=== PATIENT | female | born 1965 | race Caucasian/White ===

== ENCOUNTER 2019-01-05 15:07 | Inpatient (IN) | payer BC ==
[2019-01-05] MEDS ORDERED: HEPARIN SODIUM,PORCINE 5,000 UNIT/ML 1 ML VIAL IV PRN (15:17)
--- NOTE | 2019-01-05 15:41 | ED ---
General Adult HPI - General Chief complaint: Chest Pain Stated complaint: chest pain Time Seen by Provider: 01/05/19 15:11 Source: patient, EMS Mode of arrival: EMS Limitations: no limitations - History of Present Illness Initial comments: Dictation was produced using Real Time Translation dictation software. please excuse any grammatical, word or spelling errors. Chief Complaint: 53-year-old female transferred from [facility] emergency department for nonSTEMI. History of Present Illness: Patient is a 53-year-old female. Denies any current medical problems. She was evaluated at [facility] emergency department for chief complaint of chest pain. Patient states that she had chest pain today pressure- like sensation to her substernal area radiating to her jaw and back. She states it was worse with lying flat or sitting up. Patient went to the emergency department for concerns of heart attack. She was evaluated and was found to h ave an elevated troponin. They did not see any signs of ST segment elevation. Patient was started on heparin and given aspirin. Rest of labs are otherwise unremarkable. Patient states after being seen at risk Department [facility] her symptoms improved. Currently she is asymptomatic. The ROS documented in this emergency department record has been reviewed and confirmed by me. Those systems with pertinent positive or negative responses have been documented in the HPI. All other systems are other negative and/or noncontributory. PHYSICAL EXAM: General Impression: Alert and oriented x3, not in acute distress HEENT: Normocephalic atraumatic, extra-ocular movements intact, pupils equal and reactive to light bilaterally, mucous membranes moist. Cardiovascular: Heart regular rate and rhythm, S1&S2 audible, no murmurs, rubs or gallops Chest: Lungs clear to auscultation bilaterally, no rhonchi, no wheeze, no rales Abdomen: Bowel sounds present, abdomen soft, non-tender, non-distended, no organomegaly Musculoskeletal: Pulses present and equal in all extremities, no peripheral edema Motor: no focal deficits noted Neurological: CN II-XII grossly intact, no focal motor or sensory deficits noted Skin: Intact with no visualized rashes Psych: Normal affect and mood ED course: 53-year-old female presents with non-STEMI as upon arrival are within acceptable limits labs and chart were reviewed from [facility] emergency department. EKG was reviewed showing hyperacute T waves however no definitive findings to suggest ST segment elevation with reciprocal changes. Patient evaluated at bedside and found to be well-appearing. She is asymptomatic at this time. Patient continued on heparin. EKG and repeat troponin obtained. EKG is unremarkable. Patient is asymptomatic at this time. Patient be admitted for non-STEMI. EKG interpretation: Ventricular rate 61, normal sinus rhythm, CA interval 150, QRS 74, QTC 426. No CA prolongation, no QTC prolongation, no ST or T-wave change s noted. Overall, this EKG is unremarkable - Related Data Home Medications Medication Instructions Recorded Confirmed No Known Home Medications 01/05/19 01/05/19 Allergies Allergy/AdvReac Type Severity Reaction Status Date / Time Mushroom Allergy Anaphylaxis Verified 01/05/19 15:36 Review of Systems ROS Statement: Those systems with pertinent positive or pertinent negative responses have been documented in the HPI. ROS Other: All systems not noted in ROS Statement are negative. Past Medical History Past Medical History: GERD/Reflux History of Any Multi-Drug Resistant Organisms: None Reported Past Surgical History: Hysterectomy Past Psychological History: No Psychological Hx Reported Smoking Status: Current every day smoker Past Alcohol Use History: Rare Past Drug Use History: None Reported General Exam Limitations: no limitations Course Vital Signs 01/05/19 15:10 Temperature 97.7 F Pulse Rate 50 L Respiratory 16 Rate Blood Pressure 140/81 O2 Sat by Pulse 97 Oximetry Disposition Clinical Impression: NSTEMI (non-ST elevated myocardial infarction) Disposition: ADMITTED IP TO THIS HOSP Condition: Fair Referrals: Geo Albert MD [Primary Care Provider] - 1-2 days Decision Time: 16:33
[2019-01-05] MEDS: HEPARIN SOD,PORK IN 0.45% NACL 25,000 UNIT in 0.45% NACL 1 250ML.BAG IV SCH (15:56)
[2019-01-05] MEDS ORDERED: NITROGLYCERIN SL TABS 0.4 MG TAB SUBLINGUAL PRN ×3 (16:33→19:10)
[2019-01-05] MEDS ORDERED: ATORVASTATIN 80 MG TAB PO STA (17:20)
[2019-01-05] MEDS ORDERED: ACETAMINOPHEN TAB 325 MG TAB PO PRN (17:39)
[2019-01-05] MEDS ORDERED: MORPHINE SULFATE 2 MG/ML SYRINGE IVP PRN (17:39)
--- NOTE | 2019-01-05 17:45 | P.HPIM ---
History of Present Illness H&P Date: 01/05/19 Chief Complaint: Chest pain transferred from [place] The patient is a 53-year-old female with a past medical history of hyperlipidemia, long-standing smoking history who was transferred here from [place], after she presented there earlier today complaining of chest pain. Apparently the patient woke up with severe chest pressure rated at 8 out of 10 with radiation up into her neck described the discomfort as squeezing, with associated shortness of breath, diaphoresis and nausea that began at rest and woke her up from sleep. The patient denied any vomiting , abdominal pain, lightheadedness dizziness , palpitations, focal weakness slurred speech or facial droop. The patient reported getting aspirin, and Pepcid at [place] which apparently resolved her pain. Review of records indicates the patient received heparin and aspirin prior to transfer here after it was noted that her troponin was trending up to 0.82, EKG done at that time showed sinus mechanism without any suggestion of acute ischemia. The patient continued to be normotensive but was noted to be bradycardic with heart rate in the low 50s, repeat troponin here was elevated at 2.25. Review of Systems Pertinent positives per HPI all other review of systems otherwise negative Past Medical History Past Medical History: GERD/Reflux History of Any Multi-Drug Resistant Organisms: None Reported Past Surgical History: Hysterectomy Past Psychological History: No Psychological Hx Reported Smoking Status: Current every day smoker Past Alcohol Use History: Rare Past Drug Use History: None Reported Medications and Allergies Home Medications Medication Instructions Recorded Confirmed Type No Known Home Medications 01/05/19 01/05/19 History Allergies Allergy/AdvReac Type Severity Reaction Status Date / Time Mushroom Allergy Anaphylaxis Verified 01/05/19 15:36 Physical Exam Vitals: Vital Signs Temp Pulse Resp BP Pulse Ox 01/05/19 15:10 97.7 F 50 L 16 140/81 97 Intake and Output 01/05/19 01/05/19 01/05/19 06:59 14:59 22:59 Other: Weight 79.379 kg Constitutional: No acute distress, conversant, pleasant Eyes: Anicteric sclerae, moist conjunctiva, no lid-lag, PERRLA ENMT: NC/AT,Oropharynx clear, no erythema, exudates Neck:Supple, FROM, no masses, or JVD, No carotid bruits; No thyromegaly Lungs: Clear to auscultation, Clear to percussion, Normal respiratory effort, no accessory muscle use Cardiovascular: Heart regular in rate and rhythm, No murmurs, gallops, or rubs no peripheral edema Abdominal: Soft Nontender, nom distended, no guarding, no rebound or rigidity, Normoactive bowel sounds No hepatomegaly, No splenomegaly, No palpable mass No abdominal wall hernia noted Skin: Normal temperature, tone, texture, turgor, No induration No subcutaneous nodules, No rash, lesions, No ulcers Extremities:No digital cyanosis No clubbing, Pedal pulses intact and symmetrical Radial pulses intact and symmetrical Normal gait and station, No calf tenderness Psychiatric: Alert and oriented to person, place and time, Appropriate affect Intact judgement Neuro: Muscles Strength 5/5 in all 4 extremities, Sensation to light touch grossly present throughout, Cranial nerves II-XII grossly intact. No focal sensory deficits Results Labs: Abnormal Lab Results - Last 24 Hours (Table) 01/05/19 Range/Units 15:55 Troponin I 2.250 H* (0.000-0.034) ng/mL Assessment and Plan (1) NSTEMI (non-ST elevated myocardial infarction) Current Visit: Yes Status: Acute Code(s): I21.4 - NON-ST ELEVATION (NSTEMI) MYOCARDIAL INFARCTION SNOMED Code(s): 28375083 (2) Hyperlipidemia Current Visit: Yes Status: Acute Code(s): E78.5 - HYPERLIPIDEMIA, UNSPECIFIED SNOMED Code(s): 43225979 (3) Bradycardia Current Visit: Yes Status: Acute Code(s): R00.1 - BRADYCARDIA, UNSPECIFIED SNOMED Code(s): 47198891 (4) Smoking greater than 30 pack years Current Visit: Yes Status: Acute Code(s): F17.210 - NICOTINE DEPENDENCE, CIGARETTES, UNCOMPLICATED SNOMED Code(s): 17791094 (5) GERD (gastroesophageal reflux disease) Current Visit: Yes Status: Acute Code(s): K21.9 - GASTRO-ESOPHAGEAL REFLUX DISEASE WITHOUT ESOPHAGITIS SNOMED Code(s): 118188894 Plan: The patient is admitted to the cardiac telemetry unit with a presumed AMI, non- STEMI and started on routine AMI orders, we will continue to antiplatelet therapy with aspirin daily, continue anticoagulation with heparin, continue statin therapy. 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 The patient is noted to be bradycardic at this time we'll hold off on any beta blockers unless directed by cardiology. We'll continue monitor her clinical course closely. She started on nicotine transdermal patch for ongoing tobaccoism. She is also continued on PPI therapy for GERD. We'll continue to follow her clinical course CODE STATUS: Full code Discussed plan of care with: Patient and her son Anticipated discharge: 2-3 days Time with Patient: Greater than 30
[2019-01-05] MEDS ORDERED: SODIUM CHLORIDE 0.9% 1,000 ML IV ONE (18:08)
[2019-01-05] MEDS ORDERED: fentaNYL (PF) 50 MCG/ML 2 ML AMP ONE (18:14)
[2019-01-05] MEDS ORDERED: fentaNYL (PF) 50 MCG/ML 2 ML AMP IVP ONE (18:15)
[2019-01-05] MEDS ORDERED: MIDAZOLAM 2 MG/2 ML VIAL IVP ONE (18:16)
[2019-01-05] MEDS ORDERED: LIDOCAINE 2% INJ 20 MG/ML SQ ONE (18:16)
[2019-01-05] MEDS: NITROGLYCERIN 1000MCG/10ML SYRINGE INTRACORON ONE ×2 (18:28→19:01)
[2019-01-05] MEDS ORDERED: TICAGRELOR 90 MG TAB ONE (18:31)
[2019-01-05] MEDS ORDERED: TICAGRELOR 90 MG TAB PO ONE (18:33)
[2019-01-05] MEDS ORDERED: BIVALIRUDIN BOLUS 250 MG/50 ML IV ONE (18:39)
[2019-01-05] MEDS ORDERED: BIVALIRUDIN 250 MG in SODIUM CHLORIDE 0.9% 50 ML IV ONE (18:40)
--- NOTE | 2019-01-05 18:41 | CONS ---
CONSULTATION Mrs Fierro is a 53-year-old female who was transferred from the [facility]. This patient woke up this morning with a complaint of chest discomfort. The pain was in the center of the chest was going up to the throat. She did not had any nausea or vomiting. The pain persisted so she came to the emergency room at the [facility]. The EKG showed the slightly prominent T-wave and initial troponin was elevated and the patient was subsequently transferred over here. The pain was not associated with any significant shortness of breath, nausea, vomiting, or diaphoresis. The patient had a similar kind of pain about a year ago and she was told that it was probably hiatal hernia. ALLERGIES: None known. PAST SURGICAL HISTORY: Surgical history includes hysterectomy. FAMILY HISTORY: The patient's mother has a high blood pressure and mini-stroke. SOCIAL HISTORY: Patient has smoked about 2 packs per day. PHYSICAL EXAMINATION: At present reveals a 53-year-old female who does not appear to be in any acute distress. The patient is presently is pain free. The patient's blood pressure is 130/80 mmHg, heart rate is 60 beats per minute. Head/ENT examination is negative. Neck is supple. There is no increase in jugular venous pressure. Both the carotid pulses are felt. There is no bruit. Chest is symmetrical. Heart the PMI is not felt. First and second heart sounds are normal. There is no evidence of any murmur. Lungs are clinically clear to auscultation and percussion. Abdomen is soft. Liver and spleen are not enlarged. Bowel sounds are heard. Extremities: Peripheral pulses are 2+. Initial EKG showed slightly prominent T-wave in lead V5 and V6. Repeat EKG done at [facility] showed some T-wave inversions in lead 3. The patient's hemoglobin is 15 g, BUN is 28, creatinine 0.6, bilirubin was 0.3. Initial troponin was less than 0.05. The 2nd troponin was 0.8. Repeat troponin at [facility] is 2.25. FINAL IMPRESSION: This patient had a prolonged episode of chest discomfort. The patient has mild T-wave inversions in the inferior leads. Troponin is elevated up to 2.25, suggestive of non-Q- wave myocardial infarction. In view of the high risk of non-Q-wave myocardial infarction, patient is advised urgent cardiac catheterization for definitive diagnosis and further management. MMODL / IJN: [id number] /
--- NOTE | 2019-01-05 18:56 | CC ---
CARDIAC CATHETERIZATION REPORT Mrs Fierro is a 53-year-old female who was a transfer from [facility] with a history suggestive of non ST-segment elevation myocardial infarction. Patient's troponin was 2.25. EKG showed minimal T-wave inversions in the lead 3. In view of that, the patient was recommended to have urgent cardiac catheterization. DETAILS OF THE PROCEDURE: The right groin was prepped and draped in the usual manner and the skin was infiltrated with 2% Xylocaine. The right femoral artery was entered using Seldinger technique and micropuncture needle and a #6-[place] sheath was placed in. Selective coronary angiography was then performed in multiple projections and left ventricular pressures were obtained. The patient tolerated the procedure well. Moderate sedation was used. Total sedation time was 18 minutes. HEMODYNAMICS: Left ventricular end-diastolic pressure is 6-8 mmHg prior to angiography. No gradient is noted across the aortic valve. SELECTIVE CORONARY ANGIOGRAPHY: Left main coronary artery is normal and patent. LAD is a good caliber blood vessel and gives rise to good size diagonal branch. LAD and its branches are normal. Circumflex coronary artery is a good caliber blood vessel and gives rise to a high obtuse marginal branch. Circumflex coronary artery and its branches are normal. Right coronary artery is a large caliber blood vessel and proximally has an eccentric 80% to 85% stenosis. It subsequently gives rise to good-sized PDA and PLV branch. FINAL IMPRESSION: This study shows 80% to 85% stenosis. which is eccentric stenosis and hazy looking lesion in the proximal right coronary artery. LAD and circumflex coronary arteries are normal. RECOMMENDATIONS: We will review the film with Dr. Bolivar and consider stent to the RCA. MMODL / IJN: [id number] /
[2019-01-05] MEDS ORDERED: IOPAMIDOL-370 100ML BTL INJ ONE (19:06)
[2019-01-05] MEDS ORDERED: ZOLPIDEM 5 MG TAB PO PRN (19:10)
[2019-01-05] MEDS ORDERED: MAG HYDROX/AL HYDROX/SIMETH 30 ML CUP PO PRN (19:10)
[2019-01-05] MEDS ORDERED: ATROPINE SULFATE 0.1 MG/ML 10ML SYRINGE IV PRN (19:10)
[2019-01-05] MEDS ORDERED: RX INFO: IV CONTRAST WAS GIVEN 1 EACH MISC MISCELLANE PRN (19:10)
[2019-01-05] MEDS ORDERED: SODIUM CHLORIDE 0.9% 1,000 ML IV SCH (19:15)
--- NOTE | 2019-01-05 19:26 | PTCA ---
PERCUTANEOUSTRANS CORORONARY ANGIOGRAPHY DATE OF SERVICE: January 05, 2019 PERFORMING PHYSICIAN: Vin Bolivar MD, retail management keyholder. PROCEDURE PERFORMED: Successful stenting of the proximal right coronary artery using 4.0 x 18 mm Xience BREE with an excellent angiographic results and reduction of stenosis from 80% to 0%. INDICATION: This is a 53-year-old female patient who was admitted to the hospital with chest discomfort and ruled in for acute non ST elevation myocardial infarction. She was seen by Dr. Henriquez who did perform a heart catheterization on the patient and that revealed critical disease involving the right coronary artery. The disease was in the proximal portion. Because of that, stenting of the RCA was advised. APPROACH: Right common femoral artery. COMPLICATION: None. LEVEL OF SEDATION: Moderate with sedation length of the 10 minutes. PROCEDURE DESCRIPTION: Please refer to the diagnostic heart catheterization was performed by Dr. Henriquez. Anticoagulation was initiated using Angiomax. Subsequently I did engage the right coronary artery using JR 3.5 short tip. I wired the RCA using a run-through wire. I did direct stenting on the lesion using 4.0 x 18 mm Xience drug-eluting stent where the stent was positioned under fluoroscopy guidance and deployed under 18 atmospheres for 20 seconds. The following angiogram showed excellent angiographic results and the procedure was completed without any complication. POSTPROCEDURE MANAGEMENT: 1. Dual anti-platelet therapy. 2. Risk factors modifications. 3. Follow up with the patient. GUS / GABRIEL: [id number] /
[2019-01-05] MEDS: METOPROLOL TARTRATE 25 MG TAB PO SCH (20:47)
[2019-01-05] MEDS: NICOTINE 21MG/24HR PATCH TRANSDERM SCH (20:50)
[2019-01-06 04:36] LABS: Cholesterol 223 mg/dL (<200); HDL Cholesterol 59 mg/dL (40-60); LDL Cholesterol,Calculated 144 mg/dL (0-99); Triglycerides 102 mg/dL (<150)
[2019-01-06] MEDS: METOPROLOL TARTRATE 25 MG TAB PO SCH ×2 (08:38→20:29)
[2019-01-06] MEDS: ASPIRIN 81 MG PO SCH (08:38)
[2019-01-06] MEDS: NICOTINE 21MG/24HR PATCH TRANSDERM SCH (08:39)
[2019-01-06] MEDS: TICAGRELOR 90 MG TAB PO SCH ×2 (08:39→20:29)
[2019-01-06] MEDS ORDERED: ASPIRIN 325 MG TAB PO SCH (09:00)
--- NOTE | 2019-01-06 09:38 | PN ---
PROGRESS NOTE Von is a 53-year-old lady who was admitted to the hospital with acute chest pain and had a non ST-segment elevation NM. She underwent emergent cardiac catheterization by my associate, Dr. Henriquez that found a tight lesion in the right coronary artery for which she underwent angioplasty with stent placement. This morning patient is doing well and is free of symptoms. Denies chest pain, difficulty in breathing or palpitations. Her peak troponin was 2.2. It is already coming down at 1.2 this morning. Her LDL cholesterol was 144. The patient is a smoker and had been advised to quit smoking. Prior to coming in, she was not on any medications. On exam this morning, she is comfortable at rest. Vital signs are stable. There is no jugular venous distention. Chest exam reveals good air entry bilaterally. Heart exam reveals first and second heart sounds. No gallop. No murmur. Abdomen is soft, nontender. Examination of extremities did not reveal any edema. Groin is free of bleeding, bruit, hematoma. Foot pulses are intact. ASSESSMENT: Acute fca-RG-[id number] elevation myocardial infarction, status post catheterization and angioplasty of right coronary artery. PLAN: Patient is doing well. Will ambulate her. Obtain a 2D echo on her to document her LV function. We will discharge her home tomorrow morning. MMODL / IJN: [id number] /
--- NOTE | 2019-01-06 10:01 | P.PN ---
Subjective Progress Note Date: 01/06/19 Patient seen and examined at bedside doing well today, has no complaints reports that her chest pain is resolved. The patient was taken to the medical lab specialist and had stenting of the proximal RCA secondary to her non-STEMI. The patient has dyslipidemia which is uncontrolled LDL not at goal 144 Objective - Vital Signs Vital signs: Vital Signs Temp 97.1 F L 01/06/19 08:00 Pulse 61 01/06/19 08:00 Resp 18 01/06/19 08:00 BP 102/65 01/06/19 08:00 Pulse Ox 96 01/06/19 08:00 Intake & Output 01/05/19 01/06/19 01/06/19 18:59 06:59 18:59 Intake Total 674 8 Output Total 1100 Balance 674 -1092 Weight 79.379 kg 79 kg Intake: IV 674 Intake, IV Titration 8 Amount Sodium Chloride 0.9% 1, 8 000 ml @ 75 mls/hr IV . [id number] ANIYAH Rx#:[id number] Output: Urine 1100 Other: Voiding Method Toilet Toilet # Voids 1 - Exam Constitutional: No acute distress, conversant, pleasant Eyes: Anicteric sclerae, moist conjunctiva, no lid-lag, PERRLA ENMT: NC/AT,Oropharynx clear, no erythema, exudates Neck:Supple, FROM, no masses, or JVD, No carotid bruits; No thyromegaly Lungs: Clear to auscultation, Clear to percussion, Normal respiratory effort, no accessory muscle use Cardiovascular: Heart regular in rate and rhythm, No murmurs, gallops, or rubs no peripheral edema Abdominal: Soft Nontender, nom distended, no guarding, no rebound or rigidity, Normoactive bowel sounds No hepatomegaly, No splenomegaly, No palpable mass No abdominal wall hernia noted Skin: Normal temperature, tone, texture, turgor, No induration No subcutaneous nodules, No rash, lesions, No ulcers Extremities:No digital cyanosis No clubbing, Pedal pulses intact and symmetrical Radial pulses intact and symmetrical Normal gait and station, No calf tenderness Psychiatric: Alert and oriented to person, place and time, Appropriate affect Intact judgement Neuro: Muscles Strength 5/5 in all 4 extremities, Sensation to light touch grossly present throughout, Cranial nerves II-XII grossly intact. No focal sensory deficits - Labs CBC & Chem 7: 01/06/19 04:02 Labs: Abnormal Lab Results - Last 24 Hours (Table) 01/05/19 01/05/19 01/06/19 Range/Units 15:55 21:27 04:02 Troponin I 2.250 H* 2.200 H* 1.120 H* (0.000-0.034) ng/mL Cholesterol (<200) mg/dL LDL Cholesterol, Calc (0-99) mg/dL 01/06/19 Range/Units 04:02 Troponin I (0.000-0.034) ng/mL Cholesterol 223 H (<200) mg/dL LDL Cholesterol, Calc 144 H (0-99) mg/dL Assessment and Plan (1) NSTEMI (non-ST elevated myocardial infarction) Narrative/Plan: * Status post heart catheterization and PCI secondary to non-Q-wave VT * Had stenting done to the proximal RCA * Echocardiogram pending * Continue dual antiplatelet therapy with Plavix and aspirin, continue statin therapy with Lipitor LDL not controlled, initiated on beta blockers Current Visit: Yes Status: Acute Code(s): I21.4 - NON-ST ELEVATION (NSTEMI) MYOCARDIAL INFARCTION SNOMED Code(s): 41031744 (2) Coronary artery disease Narrative/Plan: * Continue treatment above Current Visit: Yes Status: Acute Code(s): I25.10 - ATHSCL HEART DISEASE OF [place] CORONARY ARTERY W/O ANG PCTRS SNOMED Code(s): 66194440 (3) Smoking greater than 30 pack years Narrative/Plan: * Patient counseled on smoking cessation * Continue nicotine transdermal patch Current Visit: Yes Status: Acute Code(s): F17.210 - NICOTINE DEPENDENCE, CIGARETTES, UNCOMPLICATED SNOMED Code(s): 11401653 (4) Hyperlipidemia Narrative/Plan: * LDL not at goal continue Lipitor therapy Current Visit: Yes Status: Acute Code(s): E78.5 - HYPERLIPIDEMIA, UNSPECIFIED SNOMED Code(s): 19303627 (5) GERD (gastroesophageal reflux disease) Narrative/Plan: * Continue PPI therapy Current Visit: Yes Status: Acute Code(s): K21.9 - GASTRO-ESOPHAGEAL REFLUX DISEASE WITHOUT ESOPHAGITIS SNOMED Code(s): 254707608 (6) Bradycardia Current Visit: Yes Status: Resolved Code(s): R00.1 - BRADYCARDIA, UNSPECIFIED SNOMED Code(s): 99840300 Plan: Patient doing well post-heart catheterization and stenting * Anticipated discharge tomorrow
[2019-01-06] MEDS: HEPARIN SOD,PORK IN 0.45% NACL 25,000 UNIT in 0.45% NACL 1 250ML.BAG IV SCH (11:58)
--- NOTE | 2019-01-06 13:16 | ECHOF ---
Referral Reason:hi MEASUREMENTS -------- HEIGHT: 167.6 cm WEIGHT: 78.9 kg BP: 117/73 RVIDd: 2.3 cm (< 3.3) IVSd: 1.3 cm (0.6 - 1.1) LVIDd: 4.7 cm (3.9 - 5.3) LVPWd: 1.2 cm (0.6 - 1.1) IVSs: 1.7 cm LVIDs: 2.8 cm LVPWs: 1.8 cm LAESV Index (A-L): 19.18 ml/m Ao Diam: 2.7 cm (2.0 - 3.7) AV Cusp: 1.9 cm (1.5 - 2.6) LA Diam: 3.5 cm (2.7 - 3.8) MV EXCURSION: 12.148 mm (> 18.000) MV EF SLOPE: 61 mm/s (70 - 150) EPSS: 0.3 cm MV E Earle: 1.02 m/s MV DecT: 246 ms MV A Earle: 0.83 m/s MV E/A Ratio: 1.23 RAP: 5.00 mmHg RVSP: 8.43 mmHg FINDINGS -------- Sinus rhythm. This was a technically good study. The left ventricular size is normal. There is mild concentric left ventricular hypertrophy. Overa ll left ventricular systolic function is normal with, an EF between 55 - 60 %. The right ventricle is normal in size. Normal LA size by volume 22+/-6 ml/m2. The right atrial size is normal. The aortic valve is trileaflet and appears structurally normal. The mitral valve leaflets are mildly thickened. Mild mitral annular calcification present. Mild m itral regurgitation is present. Trace tricuspid regurgitation present. The right ventricular systolic pressure, as measured by Dopp ler, is 8.43mmHg. There is no pulmonic regurgitation present. The aortic root size is normal. Normal inferior vena cava with normal inspiratory collapse consistent with estimated right atrial pre ssure of 5 mmHg. There is no pericardial effusion. CONCLUSIONS -------- 1. Sinus rhythm. 2. This was a technically good study. 3. The left ventricular size is normal. 4. There is mild concentric left ventricular hypertrophy. 5. Overall left ventricular systolic function is normal with, an EF between 55 - 60 %. 6. The right ventricle is normal in size. 7. Normal LA size by volume 22+/-6 ml/m2. 8. The right atrial size is normal. 9. The aortic valve is trileaflet and appears structurally normal. 10. The mitral valve leaflets are mildly thickened. 11. Mild mitral annular calcification present. 12. Mild mitral regurgitation is present. 13. Trace tricuspid regurgitation present. 14. The right ventricular systolic pressure, as measured by Doppler, is 8.43mmHg. 15. There is no pulmonic regurgitation present. 16. The aortic root size is normal. 17. Normal inferior vena cava with normal inspiratory collapse consistent with estimated right atrial pressure of 5 mmHg. 18. There is no pericardial effusion. CERTIFIED PHLEBOTOMY TECHNICIAN: Nohemi Fisher RDCS
[2019-01-06 15:27] VITALS: BMI 28.0
[2019-01-06] MEDS ORDERED: ATORVASTATIN 80 MG TAB PO SCH (21:00)
[2019-01-07 08:01] VITALS: RESP 20
[2019-01-07 08:06] LABS: HCT 45.5 % (34.0-46.0); HGB 14.8 gm/dL (11.4-16.0); MCHC 32.6 g/dL (31.0-37.0); MCV 92.1 fL (80.0-100.0); Mean Platelet Volume 5.9; Platelet Count 316 k/uL (150-450); RBC 4.94 m/uL (3.80-5.40); WBC 8.1 k/uL (3.8-10.6)
[2019-01-07] MEDS: ASPIRIN 81 MG PO SCH (08:09)
[2019-01-07] MEDS: TICAGRELOR 90 MG TAB PO SCH (08:09)
[2019-01-07] MEDS: NICOTINE 21MG/24HR PATCH TRANSDERM SCH (08:09)
[2019-01-07 08:16] LABS: Anion Gap 6 mmol/L; Blood Urea Nitrogen 12 mg/dL (7-17); Calcium 9.5 mg/dL (8.4-10.2); Carbon Dioxide 27 mmol/L (22-30); Chloride 110 mmol/L (98-107); Glucose 94 mg/dL (74-99); Potassium 4.2 mmol/L (3.5-5.1); Sodium 143 mmol/L (137-145)
[2019-01-07] MEDS ORDERED: VARENICLINE 0.5 MG TAB PO SCH (09:45)
[2019-01-07 11:24] VITALS: BP 105/63; PULSE 50; TEMP 97.1
--- NOTE | 2019-01-07 12:55 | P.DS ---
Providers Date of admission: 01/05/19 16:33 Expected date of discharge: 01/07/19 Attending physician: Papi Hendrickson MD Consults: 01/05/19 16:33 Consult Physician Urgent Consulting Provider: Alirio Henriquez Consult Reason/Comments: nstemi Do you want consulting provider notified?: Yes 01/05/19 19:11 Consult Physician Routine Consulting Provider: [facility] Consult Reason/Comments: Post Interventional patient Do you want consulting provider notified?: Already Contacted Primary care physician: Geo Albert - Discharge Diagnosis(es) (1) NSTEMI (non-ST elevated myocardial infarction) Current Visit: Yes Status: Acute (2) Coronary artery disease Current Visit: Yes Status: Acute (3) Smoking greater than 30 pack years Current Visit: Yes Status: Acute (4) Hyperlipidemia Current Visit: Yes Status: Acute (5) GERD (gastroesophageal reflux disease) Current Visit: Yes Status: Acute (6) Bradycardia Current Visit: Yes Status: Resolved Hospital Course: The patient is a 53-year-old female that presented with chest pain was admitted for a non-ST elevation non-Q-wave HI after being transferred here from [place], she was started on routine AMI orders with aspirin and placed on heparin drip, review of the EKG showed mild T-wave inversions in the inferior leads, her troponin was up to 2.25. Cardiology was consulted and the patient was brought to the lift slab operator where the patient was noted to have 80-85% stenosis of the proximal RCA with subsequent stenting.she was continued on dual antiplatelet therapy along with statins. The patient's blood pressure remained stable, 2-D echocardiogram post cath showed a preserved LVEF of 55-60%, with mild concentric left ventricular hypertrophy. She was discharged home in stable condition and instructed to follow-up with her PCP and cardiology. This discharge process took approximately 35 minutes Focus exam CV: Regular rate and rhythm, no murmurs rubs or gallops Patient Condition at Discharge: Good Plan - Discharge Summary Discharge Rx Participant: No New Discharge Prescriptions: New Aspirin 81 mg PO DAILY #30 chew Ticagrelor [Brilinta] 90 mg PO BID #60 tab Varenicline [Chantix Starter Pack] 0.5 mg PO DAILY 30 Days #60 tab Atorvastatin [Lipitor] 80 mg PO HS #30 tab Metoprolol Tartrate [Lopressor] 12.5 mg PO BID #30 tab Nitroglycerin Sl Tabs [Nitrostat] 0.4 mg SUBLINGUAL Q5M PRN #25 tab PRN Reason: Chest Pain Discharge Medication List Aspirin 81 mg PO DAILY #30 chew 01/07/19 [Rx] Atorvastatin [Lipitor] 80 mg PO HS #30 tab 01/07/19 [Rx] Metoprolol Tartrate [Lopressor] 12.5 mg PO BID #30 tab 01/07/19 [Rx] Nitroglycerin Sl Tabs [Nitrostat] 0.4 mg SUBLINGUAL Q5M PRN #25 tab 01/07/19 [Rx] Ticagrelor [Brilinta] 90 mg PO BID #60 tab 01/07/19 [Rx] Varenicline [Chantix Starter Pack] 0.5 mg PO DAILY 30 Days #60 tab 01/07/19 [Rx] Follow up Appointment(s)/Referral(s): Geo Albert MD [Primary Care Provider] - 01/12/19 10:20 am (Saturday ) Alirio Henriquez MD [STAFF PHYSICIAN] - 01/15/19 3:45 pm () Patient Instructions/Handouts: Heart Healthy Diet (DC), Safe Use of Antiplatelet Medication (DC), Coronary Intravascular Stent Placement (DC) Activity/Diet/Wound Care/Special Instructions: pt has a coupon for $5/mo Brillinta Discharge Disposition: HOME SELF-CARE
--- NOTE | 2019-01-07 13:20 | P.PN ---
Subjective Progress Note Date: 01/07/19 This is a 53-year-old female who was transferred here for [facility] with a non-ST elevation myocardial infarction. She was taken to the cardiac catheterization lab where she underwent successful stenting of the proximal right coronary artery. Patient was seen and examined this morning, she denied any chest pain or difficulty in breathing. She has been up ambulating in the hallway without any difficulty. Echocardiogram with Doppler study was performed which revealed an ejection fraction of 55-60%. Her blood pressure has been running on the low side with a heart rate around 50, we will decrease her dose of beta steph to 12-1/2 mg by mouth twice a day today. Objective - Vital Signs Vital signs: Vital Signs Temp 97.1 F L 01/07/19 11:23 Pulse 50 L 01/07/19 11:23 Resp 20 01/07/19 11:23 BP 105/63 01/07/19 11:23 Pulse Ox 97 01/07/19 11:23 Intake & Output 01/06/19 01/07/19 01/07/19 18:59 06:59 18:59 Intake Total 960 480 Balance 960 480 Weight 79 kg 77.7 kg Intake: Oral 960 480 Other: Voiding Method Toilet Toilet # Voids 2 2 3 # Bowel Movements 1 - Exam PHYSICAL EXAMINATION: GENERAL: 53-year-old female in no acute distress at the time of my examination HEENT: Head is atraumatic, normocephalic. Pupils equal, round. Sclera anicteric. Conjunctiva are clear. Mucous membranes of the mouth are moist. Neck is supple. There is no elevated jugular venous pressure. No carotid bruit is heard. HEART EXAMINATION: Heart S1, S2 normal. No murmur or gallop heard. CHEST EXAMINATION: On's reveal some fine scattered wheezing throughout ABDOMEN: Soft, nontender. Bowel sounds are heard. No organomegaly noted. EXTREMITIES: 2+ peripheral pulses with no evidence of peripheral edema and no calf tenderness noted. Right groin is soft, no evidence of any hematoma. NEUROLOGIC patient is awake, alert and oriented 3 . . - Labs CBC & Chem 7: 01/07/19 07:40 01/07/19 07:40 Labs: Abnormal Lab Results - Last 24 Hours (Table) 01/07/19 Range/Units 07:40 Chloride 110 H (98-107) mmol/L Assessment and Plan Plan: Assessment and plan #1 non-ST elevation myocardial infarction, status post angioplasty and stenting of the RCA #2 nicotine dependence, patient's smokes 2 packages of cigarettes per day #3 hyperlipidemia Plan Patient may be able to be discharged home today. She will be discharged home on aspirin 81 mg daily, Brilinta 90 mg twice a day, Lopressor 12-1/2 mg one tablet by mouth twice a day, Lipitor 80 mg daily, Chantix, and sublingual nitroglycerin as needed for chest pain. DNP note has been reviewed, I agree with a documented findings and plan of care. Patient was seen and examined.
[2019-01-07] MEDS ORDERED: METOPROLOL TARTRATE 12.5 MG TAB PO SCH (21:00)
== END 2019-01-07 13:30 | disposition home or self-care (01) | DRG 247 ==
LOC: SUPCPDRO 15:07 → EC 15:07 → 3SCARD 16:33
PROVIDERS: ADMIT Family Medicine; ATTEND Family Medicine
PROC: B2111ZZ Fluoroscopy of Multiple Coronary Arteries using Low Osmolar Contrast (ICD-10-PCS; 2019-01-05)
PROC: B2151ZZ Fluoroscopy of Left Heart using Low Osmolar Contrast (ICD-10-PCS; 2019-01-05)
PROC: 027034Z Dilation of Coronary Artery, One Artery with Drug-eluting Intraluminal Device, Percutaneous Approach (ICD-10-PCS; principal; 2019-01-05 17:58)
PROC: 4A023N7 Measurement of Cardiac Sampling and Pressure, Left Heart, Percutaneous Approach (ICD-10-PCS; 2019-01-05 17:58)
DX: I21.4 Non-ST elevation (NSTEMI) myocardial infarction (principal); I25.10 Atherosclerotic heart disease of native coronary artery without angina pectoris; K21.9 Gastro-esophageal reflux disease without esophagitis; F17.210 Nicotine dependence, cigarettes, uncomplicated; E78.5 Hyperlipidemia, unspecified; R00.1 Bradycardia, unspecified; I51.7 Cardiomegaly; Z71.6 Tobacco abuse counseling; Z90.710 Acquired absence of both cervix and uterus; Z91.018 Allergy to other foods; Z82.3 Family history of stroke; Z82.49 Family history of ischemic heart disease and other diseases of the circulatory system
CPT/HCPCS: 36415; 80048; 80061; 82565; 84484; 85027; 93005; 93306; 93458; 96365; 96366; 99285; C1874

== ENCOUNTER 2019-01-10 18:19 | Inpatient (IN) | payer BC ==
[2019-01-10] MEDS ORDERED: MAG HYDROX/AL HYDROX/SIMETH 30 ML, HYOSCYAMINE ELIXIR 10 ML, CIMETIDINE HCL 300 MG PO STA ×3 (18:48)
[2019-01-10 18:55] LABS: Basophils # (A) 0.1 k/uL (0-0.2); Basophils % (A) 1 %; Eosinophils # (A) 0.4 k/uL (0-0.7); Eosinophils % (A) 4 %; HCT 43.6 % (34.0-46.0); HGB 14.3 gm/dL (11.4-16.0); Lymphocytes # (A) 2.1 k/uL (1.0-4.8); Lymphocytes % (A) 22 %; MCH 29.8 pg (25.0-35.0); MCHC 32.7 g/dL (31.0-37.0); MCV 91.2 fL (80.0-100.0); Mean Platelet Volume 6.3; Monocytes # (A) 0.5 k/uL (0-1.0); Monocytes % (A) 5 %; Neutrophils # (A) 6.3 k/uL (1.3-7.7); Neutrophils % (A) 65 %; Platelet Count 328 k/uL (150-450); RBC 4.79 m/uL (3.80-5.40); RDW 12.9 % (11.5-15.5); WBC 9.6 k/uL (3.8-10.6)
[2019-01-10 19:07] LABS: ALT 24 U/L (9-52); AST 17 U/L (14-36); Albumin 3.8 g/dL (3.5-5.0); Alkaline Phosphatase 66 U/L (38-126); Anion Gap 8 mmol/L; Blood Urea Nitrogen 11 mg/dL (7-17); Calcium 9.3 mg/dL (8.4-10.2); Carbon Dioxide 23 mmol/L (22-30); Chloride 110 mmol/L (98-107); Glucose 105 mg/dL (74-99); Magnesium 2.1 mg/dL (1.6-2.3); Sodium 141 mmol/L (137-145); Total Bilirubin 0.3 mg/dL (0.2-1.3); Total Protein 6.3 g/dL (6.3-8.2)
[2019-01-10 19:12] LABS: INR 0.9 (<1.2); Partial Thromboplastin Time 24.7 sec (22.0-30.0)
--- NOTE | 2019-01-10 19:21 | XR ---
EXAMINATION TYPE: XR chest 2V DATE OF EXAM: 01/10/2019 COMPARISON: Outside exam 01/05/2019 HISTORY: 53-year-old female with chest pain TECHNIQUE: PA and lateral views FINDINGS: The cardiomediastinal silhouette, aorta, and pulmonary vasculature are within normal limits. Lungs an d pleural spaces are clear. IMPRESSION: No acute cardiopulmonary process.
[2019-01-10] MEDS ORDERED: HEPARIN SODIUM,PORCINE 5,000 UNIT/ML 1 ML VIAL IV ONE (19:34)
[2019-01-10] MEDS ORDERED: HEPARIN SODIUM,PORCINE 5,000 UNIT/ML 1 ML VIAL IV PRN (19:34)
[2019-01-10] MEDS ORDERED: FAMOTIDINE 20 MG/2 ML VIAL IV STA (19:36)
[2019-01-10] MEDS ORDERED: HEPARIN SOD,PORK IN 0.45% NACL 25,000 UNIT in 0.45% NACL 1 250ML.BAG IV SCH (19:45)
--- NOTE | 2019-01-10 20:12 | ED ---
Chest Pain HPI - General Chief Complaint: Chest Pain Stated Complaint: chest pain Time Seen by Provider: 01/10/19 18:31 Source: patient, EMS Mode of arrival: EMS Limitations: no limitations - History of Present Illness Initial Comments: 53-year-old female presenting with chest burning that began a few days prior. She states she recently had an NSTEMI with a stent placement on January 05. He states she's been taking Brilinta, which is been causing her to have some acid reflux symptoms. Today she states she had burning in her chest that is constant, has not been alleviated by anything, was not accompanied with any other anginal equivalents. She denies shortness of breath. She tried her home Zantac and Nitro without relief. Patient denies similar symptoms in the past. - Related Data Home Medications Medication Instructions Recorded Confirmed Ranitidine HCl [Zantac] 75 mg PO DAILY 01/10/19 01/10/19 Previous Rx's Medication Instructions Recorded Aspirin 81 mg PO DAILY #30 chew 01/07/19 Atorvastatin [Lipitor] 80 mg PO HS #30 tab 01/07/19 Metoprolol Tartrate [Lopressor] 12.5 mg PO BID #30 tab 01/07/19 Nitroglycerin Sl Tabs [Nitrostat] 0.4 mg SUBLINGUAL Q5M PRN #25 tab 01/07/19 Ticagrelor [Brilinta] 90 mg PO BID #60 tab 01/07/19 Varenicline [Chantix Starter Pack] 0.5 mg PO DAILY 30 Days #60 tab 01/07/19 Allergies Allergy/AdvReac Type Severity Reaction Status Date / Time Mushroom Allergy Anaphylaxis Verified 01/10/19 18:58 Review of Systems ROS Statement: Those systems with pertinent positive or pertinent negative responses have been documented in the HPI. Review of Systems Constitutional: Denies fever, chills Eyes: Denies change in vision, Denies pain Ears, nose, mouth, throat: Denies headaches, Denies sore throat Cardiovascular: Positive chest pain. Denies palpitations Respiratory: Denies shortness of breath, Denies cough Gastrointestinal: Denies abdominal pain. Denies nausea, vomiting, diarrhea. Genitourinary: Denies hematuria, Denies infections Musculoskeletal: Denies pain, Denies swelling Integumentary: Denies rash Neurological: Denies headache, focal weakness, focal numbness Psychiatric: Denies anxiety, Denies depression Hematologic/Lymphatic: Denies easy bleeding or bruising ROS Other: All systems not noted in ROS Statement are negative. Past Medical History Past Medical History: Chest Pain / Angina, GERD/Reflux History of Any Multi-Drug Resistant Organisms: None Reported Past Surgical History: Hysterectomy Additional Past Surgical History / Comment(s): stent placement Past Anesthesia/Blood Transfusion Reactions: Postoperative Nausea & Vomiting (PONV) Past Psychological History: No Psychological Hx Reported Smoking Status: Current every day smoker Past Alcohol Use History: Rare Past Drug Use History: None Reported General Exam - General Exam Comments Initial Comments: General: Awake, alert, No acute Distress HENT: Normocephalic. Atraumatic Eyes: PERRL. EOMI. No scleral icterus. No injected conjunctiva Neck: Full ROM Chest/Lungs: Clear to auscultation bilaterally. No wheezing, rhonchi, or rales Cardiac: Regular rate, rhythm. No murmurs or rubs Abdomen/GI: Soft, nontender, nondistended. No rebound, guarding, or rigidity. Musculoskeletal: Full ROM Skin: Warm, dry, intact Neurologic: A/Ox3, no weakness, no sensory deficit, no abnormal gait, no coordination deficit Limitations: no limitations Course Vital Signs 01/10/19 01/10/19 01/10/19 18:21 18:23 18:30 Temperature 98.5 F Pulse Rate 56 L 53 L Respiratory 16 16 28 H Rate Blood Pressure 116/66 116/66 129/72 O2 Sat by Pulse 98 98 96 Oximetry 01/10/19 01/10/19 01/10/19 19:00 20:30 22:04 Temperature 98.2 F 97.8 F Pulse Rate 74 50 L Respiratory 16 15 Rate Blood Pressure 120/76 135/91 126/76 O2 Sat by Pulse 98 98 Oximetry Chest Pain MDM - MDM 53-year-old female presenting with chest pain. Initial exam the patient is awak e, alert, no acute distress. VSS. EKG shows sinus bradycardia at a rate of [address] segment elevation, depression. No prolonged QT/QTc or [place] interval. No dysrythmia noted. Patient laboratory workup reveals a troponin of 0.064. This is down trending compared to her previous troponins however I am unsure if the elevation is due to the chest pain she is having now. He was started on heparin requires admission for rule out ACS versus stent thrombosis. Patient has no shortness of breath or respiratory symptoms. Unlikley her chest burning is secondary to a PE. She was given her home dose of brilinta and her nighttime medications. I spoke with the admitting physician who was agreeable. Patient is currently stable for transfer to the floor. Disposition Clinical Impression: Chest pain, Elevated troponin Disposition: ADMITTED IP TO THIS [facility] Decision to Admit Reason: Admit from EC Decision Date: 01/10/19 Decision Time: 20:12
[2019-01-10] MEDS ORDERED: HYDROcodone/APAP 5-325MG 1 EACH TAB PO PRN (20:13)
[2019-01-10] MEDS ORDERED: ONDANSETRON 4 MG/2 ML VIAL IVP PRN (20:13)
[2019-01-10] MEDS ORDERED: NALOXONE 0.4 MG/ML 1 ML VIAL IV PRN (20:13)
[2019-01-10] MEDS ORDERED: ACETAMINOPHEN TAB 325 MG TAB PO PRN (20:13)
[2019-01-10] MEDS ORDERED: NITROGLYCERIN SL TABS 0.4 MG TAB SUBLINGUAL PRN (20:15)
[2019-01-10] MEDS ORDERED: ATORVASTATIN 80 MG TAB PO SCH (21:00)
[2019-01-10] MEDS ORDERED: NICOTINE 21MG/24HR PATCH TRANSDERM STA (21:51)
[2019-01-10] MEDS: METOPROLOL TARTRATE 12.5 MG TAB PO SCH (22:03)
[2019-01-10] MEDS: TICAGRELOR 90 MG TAB PO SCH (22:38)
--- NOTE | 2019-01-10 23:16 | P.HPIM ---
History of Present Illness H&P Date: 01/10/19 The patient is a 53 yo F with a PMH of HTN and recent NSTEMI s/p cath and stenting of proximal RCA on 01/05/19 who presented to the ED for epigastric burning like pain. The patient described the pain as a heart-burn sensation and reports that she has had it since she began taking Brilinta on the prior admission, described as a burning sensation in the epigastric region, w/ no associated SOB, palpitations, diaphoresis, nausea, abdominal pain, or diarrhea. The patient noted that the pain worsened today to 8/10 at which time she activated EMS. The patient took Zantac at home earlier today with no relief. She notes that the pain also did not improve with Pepcid and Maalox in the ED and endorsed 5/10 epigastric pain during the interview. She denied any association w/ exertion. The patient underwent an extensive evaluation in the ED w/ Troponin 0.064, down from 1.120 on 01/06/19 prior to discharge, w/ CXR unremarkable. The patient was admitted to the medicine service for cardiology evaluation and further management. Review of Systems Pertinent positives and negatives as discussed in HPI, a complete review of systems was performed and all other systems are negative. Past Medical History Past Medical History: Chest Pain / Angina, GERD/Reflux History of Any Multi-Drug Resistant Organisms: None Reported Past Surgical History: Hysterectomy Additional Past Surgical History / Comment(s): stent placement Past Anesthesia/Blood Transfusion Reactions: Postoperative Nausea & Vomiting (PONV) Past Psychological History: No Psychological Hx Reported Smoking Status: Current every day smoker Past Alcohol Use History: Rare Past Drug Use History: None Reported Medications and Allergies Home Medications Medication Instructions Recorded Confirmed Type Aspirin 81 mg PO DAILY #30 chew 01/07/19 01/10/19 Rx Atorvastatin [Lipitor] 80 mg PO HS #30 tab 01/07/19 01/10/19 Rx Metoprolol Tartrate [Lopressor] 12.5 mg PO BID #30 tab 01/07/19 01/10/19 Rx Nitroglycerin Sl Tabs [Nitrostat] 0.4 mg SUBLINGUAL Q5M PRN #25 tab 01/07/19 01/10/19 Rx Ticagrelor [Brilinta] 90 mg PO BID #60 tab 04/17/19 04/20/19 Rx Varenicline [Chantix Starter Pack] 0.5 mg PO DAILY 30 Days #60 tab 01/07/19 01/10/19 Rx Ranitidine HCl [Zantac] 75 mg PO DAILY 01/10/19 01/10/19 History Allergies Allergy/AdvReac Type Severity Reaction Status Date / Time Mushroom Allergy Anaphylaxis Verified 01/10/19 18:58 Physical Exam Vitals: Vital Signs Temp Pulse Resp BP Pulse Ox 01/10/19 22:04 97.8 F 50 L 15 126/76 98 01/10/19 20:30 98.2 F 74 16 135/91 98 01/10/19 19:00 120/76 01/10/19 18:30 53 L 28 H 129/72 96 01/10/19 18:23 16 116/66 98 01/10/19 18:21 98.5 F 56 L 16 116/66 98 Intake and Output 01/10/19 01/10/19 01/11/19 14:59 22:59 06:59 Other: Weight 77.564 kg General: non toxic, no distress, appears at stated age, overweight Derm: no unusual rashes/lesions no unusual ecchymoses, warm, dry Head: atraumatic, normocephalic, symmetric Eyes: EOMI, no lid lag, anicteric sclera, pupils equal round reactive to light ENT: Nose and ears atraumatic, no thrush, no pharyngeal erythema Neck: No thyromegaly, no cervical lymphadenopathy, trachea midline, supple Mouth: no lip lesion, mucus membranes moist Cardiovascular: S1S2 reg, bradycardic, no murmur, positive posterior tibial pulse bilateral, no edema, capillary refill less than 2 seconds Lungs: CTA bilateral, no rhonchi, no rales , no accessory muscle use Abdominal: soft, nontender to palpation, no guarding, no appreciable organomegaly, normal bowel sounds Ext: no gross muscle atrophy, muscle strength 5 out of 5 in all 4 extremities grossly, no contractures, Neuro: CN II-XI grossly intact, light touch intact all 4 extremities, finger to nose within normal limits, Psych: Alert, oriented, appropriate affect Results CBC & Chem 7: 01/10/19 18:40 01/10/19 18:40 Labs: Abnormal Lab Results - Last 24 Hours (Table) 01/10/19 01/10/19 Range/Units 18:40 18:40 Chloride 110 H (98-107) mmol/L Creatinine 0.51 L (0.52-1.04) mg/dL Glucose 105 H (74-99) mg/dL Troponin I 0.064 H* (0.000-0.034) ng/mL Assessment and Plan Plan: Epigastric pain, r/o ACS -- elevated troponin -Cardiology evaluation in am -Trend troponin -Cardiac monitoring -Continue with Heparin and Lipitor -Continue with Brillinta -Will start Protonix HTN -Resume home medications DVT//GI prophylaxis -Heparin infusion -Protonix The patient is admitted with an anticipated greater than 2 midnight stay for evaluation of chest pain. CODE STATUS:Full Code Discussed with: Patient, daughter Anticipated discharge date: 01/12/[address]: Home A total of 35 minutes was spent on the care of this complex patient more than 50% of the time was spent in counseling and care coordination.
[2019-01-10] MEDS: PANTOPRAZOLE 40 MG TABLET PO SCH (23:37)
[2019-01-11 00:22] VITALS: RESP 18
[2019-01-11 00:49] VITALS: BMI 27.8
[2019-01-11 06:48] LABS: Basophils # (A) 0.1 k/uL (0-0.2); Basophils % (A) 1 %; Eosinophils # (A) 0.3 k/uL (0-0.7); Eosinophils % (A) 3 %; HCT 43.1 % (34.0-46.0); Lymphocytes # (A) 2.1 k/uL (1.0-4.8); Lymphocytes % (A) 22 %; MCH 29.4 pg (25.0-35.0); MCHC 32.5 g/dL (31.0-37.0); MCV 90.4 fL (80.0-100.0); Mean Platelet Volume 6.9; Monocytes # (A) 0.5 k/uL (0-1.0); Monocytes % (A) 5 %; Neutrophils # (A) 6.2 k/uL (1.3-7.7); Neutrophils % (A) 66 %; Platelet Count 344 k/uL (150-450); RBC 4.77 m/uL (3.80-5.40); RDW 13.6 % (11.5-15.5); WBC 9.5 k/uL (3.8-10.6)
[2019-01-11] MEDS: METOPROLOL TARTRATE 12.5 MG TAB PO SCH (08:37)
[2019-01-11] MEDS: TICAGRELOR 90 MG TAB PO SCH (08:40)
[2019-01-11] MEDS: PANTOPRAZOLE 40 MG TABLET PO SCH (08:40)
[2019-01-11] MEDS ORDERED: FAMOTIDINE 20 MG TAB PO SCH (09:00)
[2019-01-11 09:06] VITALS: BP 115/80; PULSE 56; TEMP 98.6
--- NOTE | 2019-01-11 10:24 | P.DS ---
Providers Date of admission: 01/10/19 20:13 Expected date of discharge: 01/11/19 Attending physician: Yessy Barrera MD Consults: 01/10/19 20:14 Consult Physician Routine Consulting Provider: Vin Bolivar Consult Reason/Comments: chest pain. recent stent Do you want consulting provider notified?: Yes Primary care physician: Geo Albert - Discharge Diagnosis(es) (1) Atypical chest pain Current Visit: Yes Status: Acute (2) GERD (gastroesophageal reflux disease) Current Visit: No Status: Acute (3) Elevated troponin Current Visit: Yes Status: Acute (4) Coronary artery disease Current Visit: No Status: Acute (5) Smoking greater than 30 pack years Current Visit: No Status: Acute (6) Bradycardia Current Visit: No Status: Resolved Hospital Course: The patient was admitted for atypical chest pain with concern for re-infarct as patient was recently admitted earlier this week where she was found to have a non-STEMI, non-Q-wave IA and underwent left heart catheterization with PCI with stenting of the proximal RCA. On this admission workup was negative EKG was not suggestive of any acute ischemia and her troponin was mildly elevated at 0.064, presumably from her prior infarct earlier this week. The patient had classic GERD symptoms complain of pyrosis in the midepigastrium that was relieved by PPI therapy with Pepcid and Protonix. The patient was noted to be bradycardic and her metoprolol was discontinued by cardiology Dr. Borden. She was subsequently discharged home in stable condition without any further workup. This discharge process took approximately 30 minutes Focused exam Cardiovascular; regular rate and rhythm no murmurs or gallops GI: Soft nontender nondistended normal bowel sounds all 4 quadrants Patient Condition at Discharge: Good Plan - Discharge Summary New Discharge Prescriptions: New Famotidine [Pepcid] 20 mg PO BID #60 tab Continue Aspirin 81 mg PO DAILY #30 chew Ticagrelor [Brilinta] 90 mg PO BID #60 tab Varenicline [Chantix Starter Pack] 0.5 mg PO DAILY 30 Days #60 tab Atorvastatin [Lipitor] 80 mg PO HS #30 tab Nitroglycerin Sl Tabs [Nitrostat] 0.4 mg SUBLINGUAL Q5M PRN #25 tab PRN Reason: Chest Pain Ranitidine HCl [Zantac] 75 mg PO DAILY Discontinued Metoprolol Tartrate [Lopressor] 12.5 mg PO BID #30 tab Discharge Medication List Aspirin 81 mg PO DAILY #30 chew 01/07/19 [Rx] Atorvastatin [Lipitor] 80 mg PO HS #30 tab 01/07/19 [Rx] Nitroglycerin Sl Tabs [Nitrostat] 0.4 mg SUBLINGUAL Q5M PRN #25 tab 01/07/19 [Rx] Ticagrelor [Brilinta] 90 mg PO BID #60 tab 01/07/19 [Rx] Varenicline [Chantix Starter Pack] 0.5 mg PO DAILY 30 Days #60 tab 01/07/19 [Rx] Ranitidine HCl [Zantac] 75 mg PO DAILY 01/10/19 [History] Famotidine [Pepcid] 20 mg PO BID #60 tab 01/11/19 [Rx] Follow up Appointment(s)/Referral(s): Geo Albert MD [Primary Care Provider] - 1-2 days Alirio Henriquez MD [STAFF PHYSICIAN] - 1 Week (Patient already has follow up appointment made. ) Patient Instructions/Handouts: Chest Pain (DC)
[2019-01-11] MEDS ORDERED: MAG HYDROX/AL HYDROX/SIMETH 30 ML, HYOSCYAMINE ELIXIR 10 ML, CIMETIDINE HCL 300 MG, LID... PO ONE ×4 (10:30)
--- NOTE | 2019-01-11 12:53 | CONS ---
CONSULTATION CHIEF COMPLAINT: Chest pain. HISTORY OF PRESENT ILLNESS: Von is a 53-year-old lady with history of coronary artery disease, status post angioplasty of right coronary artery recently following a non ST-segment elevation [place], comes in complaining of chest pain. She describes it primarily as an epigastric discomfort that was burning in nature, mild to moderate intensity, different from the chest pain that she had at last admission. She comes in. Her troponin is mildly elevated and she had sinus bradycardia and is admitted to hospital for the same. Her symptoms seem more related to GERD and possible gastritis than any myocardial ischemia. The chest discomfort is clearly different. EKG shows nonspecific T-wave inversions in the inferior leads and her troponins are actually coming down from her last admission. No further cardiac workup is needed. She will be discharged home, but I suggest that she stop the metoprolol on discharge as she has significant bradycardia which may be causing fatigue and tiredness. PAST MEDICAL HISTORY: Significant for coronary artery disease, status post angioplasty. CURRENT MEDICATIONS: Include Chantix, Brilinta, Zantac, Lopressor 12.5 b.i.d., Lipitor and aspirin. ALLERGIC: TO MUSHROOM. FAMILY HISTORY: Negative for premature coronary artery disease. SOCIAL HISTORY: She recently quit smoking. REVIEW OF SYSTEMS: HEENT is unremarkable. Cardiac as described above. Respiratory negative. GI as described above Genitourinary negative. Allergy negative. Musculoskeletal: Negative. Endocrine negative. Derm negative. Constitutional negative. Oncological negative. Central nervous system negative. Rest of the system review is not relevant. EXAM: Patient is comfortable at rest. Vital signs are stable. There is no jugular venous distention. Carotid upstroke is normal. There is no bruit. Chest exam reveals good air entry bilaterally. Heart exam reveals first and second heart sounds. No gallop. No murmur. No rub. Abdomen is soft, nontender. Exam of extremities did not reveal edema. Peripheral pulses are felt. LABS: Show a troponin of 0.06, 0.06 and 0.05. Hemoglobin is normal at 14. Creatinine is normal at 0.5. ASSESSMENT: 1. Nonspecific chest pain. 2. Coronary artery disease, status post recent non ST-segment elevation myocardial infarction, cath and angioplasty of right coronary artery. The patient is doing well. She can be discharged home and she will keep the outpatient followup. MMODL / IJN: [id number] /
== END 2019-01-11 10:43 | disposition home or self-care (01) | DRG 391 ==
LOC: EC 18:19 → 3SCARD 20:13
PROVIDERS: ADMIT Internal Medicine; ATTEND Internal Medicine
DX: K21.9 Gastro-esophageal reflux disease without esophagitis (principal); I21.4 Non-ST elevation (NSTEMI) myocardial infarction; I10 Essential (primary) hypertension; R74.8 Abnormal levels of other serum enzymes; I25.10 Atherosclerotic heart disease of native coronary artery without angina pectoris; R00.1 Bradycardia, unspecified; Z79.82 Long term (current) use of aspirin; Z79.899 Other long term (current) drug therapy; Z79.02 Long term (current) use of antithrombotics/antiplatelets; Z91.018 Allergy to other foods; Z90.710 Acquired absence of both cervix and uterus; Z95.5 Presence of coronary angioplasty implant and graft
CPT/HCPCS: 36415; 71046; 80053; 83735; 84484; 85025; 85610; 85730; 93005; 96365; 96366; 96375; 96376; 99285

== ENCOUNTER 2021-01-25 23:32 | Observation (INO) | payer BC ==
[2021-01-25] MEDS ORDERED: SODIUM CHLORIDE 0.9% 1,000 ML IV STA (23:35)
--- NOTE | 2021-01-25 23:35 | ED ---
Chest Pain HPI - General Stated Complaint: Chest Pain Time Seen by Provider: 01/25/21 23:34 Source: RN notes reviewed, old records reviewed Limitations: no limitations - History of Present Illness Initial Comments: This is a 55-year-old female DF for evaluation patient has history of heart disease with stent placement. History of [place]. Patient coming with chest pain and feels like prior and mild left severe. She also admits to fatigue as of late. No significant shortness of breath no shortness breath with activity no diaphoresis or any other issue MD Complaint: chest pain -: hour(s) Onset: during rest Pain Location: substernal Pain Radiation: none Severity: mild Severity scale (1-10): 2 Quality: tightness, heaviness Consistency: constant Improves With: nothing Worsens With: nothing Context: other (none) Anginal Symptoms: sense of impending doom Other Symptoms: palpitations Treatments Prior to Arrival: none - Related Data Home Medications Medication Instructions Recorded Confirmed Clopidogrel [Plavix] 75 mg PO HS 05/28/19 05/28/19 Losartan Potassium [Cozaar] 25 mg PO HS 05/28/19 05/28/19 Rosuvastatin [Crestor] 20 mg PO HS 05/28/19 05/28/19 Previous Rx's Medication Instructions Recorded Aspirin 81 mg PO DAILY #30 chew 01/07/19 Nitroglycerin Sl Tabs [Nitrostat] 0.4 mg SUBLINGUAL Q5M PRN #25 tab 01/07/19 Famotidine [Pepcid] 20 mg PO BID #60 tab 01/11/19 Nicotine 14Mg/24Hr Patch [Habitrol] 1 patch TRANSDERM DAILY #30 patch 05/29/19 Allergies Allergy/AdvReac Type Severity Reaction Status Date / Time Mushroom Allergy Anaphylaxis Verified 05/28/19 10:41 Review of Systems ROS Statement: Those systems with pertinent positive or pertinent negative responses have been documented in the HPI. ROS Other: All systems not noted in ROS Statement are negative. Past Medical History Past Medical History: Coronary Artery Disease (CAD), GERD/Reflux, Myocardial Infarction ([place]), Pneumonia Additional Past Medical History / Comment(s): Bowel obstructions treated conser vatively, pt states she has never had htn or elevated cholesterol-she was started on meds for these after her [place], bradycardia, bronchitis. Last Myocardial Infarction Date:: 01/05/19 History of Any Multi-Drug Resistant Organisms: None Reported Past Surgical History: Heart Catheterization With Stent, Hysterectomy Additional Past Surgical History / Comment(s): PCI with stent placement, colonoscopy. Past Anesthesia/Blood Transfusion Reactions: Motion Sickness, Postoperative N ausea & Vomiting (PONV) Date of Last Stent Placement:: 01/05/19 Past Psychological History: No Psychological Hx Reported Additional Psychological History / Comment(s): Pt has an adult reese residing with her. She is independent. Past Alcohol Use History: None Reported Additional Past Alcohol Use History / Comment(s): Pt started smoking as a teen and was up to a 2 ppd smoker, recently decreased to 3-5 cigarettes a day. Past Drug Use History: None Reported - Past Family History Father Family Medical History: Cancer Additional Family Medical History / Comment(s): Father had paratid cancer that metastasized to his lungs. Mother Family Medical History: Cancer, CVA/TIA, Hypertension Additional Family Medical History / Comment(s): Mother had a CVA. She also had breast cancer. General Exam General appearance: alert, in no apparent distress Head exam: Present: atraumatic, normocephalic, normal inspection Eye exam: Present: normal appearance, PERRL, EOMI. Absent: scleral icterus, conjunctival injection, periorbital swelling ENT exam: Present: normal exam, mucous membranes moist Neck exam: Present: normal inspection. Absent: tenderness, meningismus, lymphadenopathy Respiratory exam: Present: normal lung sounds bilaterally. Absent: respiratory distress, wheezes, rales, rhonchi, stridor Cardiovascular Exam: Present: regular rate, normal rhythm, normal heart sounds. Absent: systolic murmur, diastolic murmur, rubs, gallop, clicks GI/Abdominal exam: Present: soft, normal bowel sounds. Absent: distended, tenderness, guarding, rebound, rigid Extremities exam: Present: normal inspection, full ROM, normal capillary refill. Absent: tenderness, pedal edema, joint swelling, calf tenderness Back exam: Present: normal inspection Neurological exam: Present: alert, oriented X3, CN II-XII intact Psychiatric exam: Present: normal affect, normal mood Skin exam: Present: warm, dry, intact, normal color. Absent: rash Course Vital Signs 01/25/21 01/25/21 23:33 23:49 Temperature 97.9 F Pulse Rate 66 Respiratory 20 20 Rate Blood Pressure 151/84 O2 Sat by Pulse 97 Oximetry - Reevaluation(s) Reevaluation #1: 01/26/21 00:44 Medical record is reviewed Reevaluation #2: 01/26/21 00:45 Patient does have some persistent chest pain although feeling improved Chest Pain MDM - MDM 55 female DF for evaluation patient is given For chest pain observation she has have typical chest pain to her prior [place]. Critical Care Time Critical Care Time: Yes Total Critical Care Time: 31 Disposition Clinical Impression: Chest pain, Coronary artery disease, ACS (acute coronary syndrome) Disposition: ADMITTED IP TO THIS HOSP Condition: Fair Is patient prescribed a controlled substance at d/c from ED?: No Referrals: None,Stated [Primary Care Provider] - 1-2 days
[2021-01-26 00:05] LABS: Basophils # (A) 0.1 k/uL (0-0.2); Basophils % (A) 1 %; Eosinophils # (A) 0.3 k/uL (0-0.7); Eosinophils % (A) 5 %; HCT 40.9 % (34.0-46.0); HGB 13.7 gm/dL (11.4-16.0); Lymphocytes # (A) 1.6 k/uL (1.0-4.8); Lymphocytes % (A) 22 %; MCH 29.9 pg (25.0-35.0); MCHC 33.5 g/dL (31.0-37.0); MCV 89.3 fL (80.0-100.0); Mean Platelet Volume 6.8; Monocytes # (A) 0.5 k/uL (0-1.0); Monocytes % (A) 7 %; Neutrophils # (A) 4.8 k/uL (1.3-7.7); Neutrophils % (A) 64 %; Platelet Count 365 k/uL (150-450); RBC 4.57 m/uL (3.80-5.40); WBC 7.5 k/uL (3.8-10.6)
[2021-01-26 00:09] LABS: ALT 11 U/L (4-34); AST 19 U/L (14-36); African American GFR (CKD) >90 (>60 ml/min/1.73 sqM); Albumin 3.6 g/dL (3.5-5.0); Alkaline Phosphatase 70 U/L (38-126); Anion Gap 4 mmol/L; Blood Urea Nitrogen 18 mg/dL (7-17); Calcium 9.3 mg/dL (8.4-10.2); Carbon Dioxide 25 mmol/L (22-30); Chloride 112 mmol/L (98-107); Creatine Kinase 144 U/L (30-135); Glucose 110 mg/dL (74-99); Lipase 145 U/L (23-300); Magnesium 2.1 mg/dL (1.6-2.3); Non-African American GFR(CKD) >90 (>60 ml/min/1.73 sqM); Potassium 3.9 mmol/L (3.5-5.1); Sodium 141 mmol/L (137-145); Total Bilirubin 0.3 mg/dL (0.2-1.3); Total Protein 6.2 g/dL (6.3-8.2)
[2021-01-26 00:10] LABS: INR 0.9 (<1.2); Partial Thromboplastin Time 23.3 sec (22.0-30.0); Prothrombin Time 9.5 sec (9.0-12.0)
--- NOTE | 2021-01-26 00:17 | XR ---
EXAMINATION TYPE: XR chest 2V DATE OF EXAM: 01/26/2021 COMPARISON: 05/28/2019 HISTORY: Chest pain TECHNIQUE: FINDINGS: Heart and mediastinum are normal. Lungs are clear. Diaphragm is normal. Bony thorax is inta ct. There are chest leads. IMPRESSION: No active cardiopulmonary disease. Normal heart. No change.
[2021-01-26] MEDS ORDERED: NITROGLYCERIN SL TABS 0.4 MG TAB SUBLINGUAL PRN ×2 (00:43→07:47)
[2021-01-26 01:21] VITALS: RESP 16
--- NOTE | 2021-01-26 08:49 | P.HPIM ---
History of Present Illness 55-year-old female came in with complaints of chest pain which started 8:30 p.m. yesterday pressure-like sensation as well as burning sensation lasted for one hour. Pressure-like sensation was relieved after aspirin and nitroglycerin still had burning sensation. Patient denied any nausea had the chest pain is not related to food. Patient has pain is moderate severity nonradiating no associated diaphoresis lightheadedness shortness of breath. Patient denied any fever chills cough. Chest x-ray is within normal limits EKG showed sinus rhythm without any acute ST-T wave changes. Patient does have history of coronary artery disease with stent placed about 2 years ago to RCA. Patient is not on beta steph at this time probably because of her bradycardia. Patient last stress test was few weeks after cardiac catheterization. She continues to smoke. Review of Systems REVIEW OF SYSTEMS: CONSTITUTIONAL: No fever, no malaise, no fatigue. HEENT: No recent visual problems or hearing problems. Denied any sore throat. CARDIOVASCULAR: No chest pain, orthopnea, PND, no palpitations, no syncope. PULMONARY: No shortness of breath, no cough, no hemoptysis. GASTROINTESTINAL: No diarrhea, no nausea, no vomiting, no abdominal pain. NEUROLOGICAL: No headaches, no weakness, no numbness. HEMATOLOGICAL: Denies any bleeding or petechiae. GENITOURINARY: Denies any burning micturition, frequency, or urgency. MUSCULOSKELETAL/RHEUMATOLOGICAL: Denies any joint pain, swelling, or any muscle pain. ENDOCRINE: Denies any polyuria or polydipsia. The rest of the 14-point review of systems is negative. Past Medical History Past Medical History: Coronary Artery Disease (CAD), GERD/Reflux, Myocardial Infarction ([place]), Pneumonia Additional Past Medical History / Comment(s): Bowel obstructions treated conservatively, pt states she has never had htn or elevated cholesterol-she was started on meds for these after her [place], bradycardia, bronchitis. Last Myocardial Infarction Date:: 01/05/19 History of Any Multi-Drug Resistant Organisms: None Reported Past Surgical History: Heart Catheterization With Stent, Hysterectomy Additional Past Surgical History / Comment(s): PCI with stent placement, colonoscopy. Past Anesthesia/Blood Transfusion Reactions: Motion Sickness, Postoperative Nausea & Vomiting (PONV) Date of Last Stent Placement:: 01/05/19 Past Psychological History: No Psychological Hx Reported Additional Psychological History / Comment(s): Pt has an adult reese residing with her. She is independent. Smoking Status: Current every day smoker Past Alcohol Use History: None Reported Additional Past Alcohol Use History / Comment(s): Pt started smoking as a teen and was up to a 2 ppd smoker, recently decreased to 3-5 cigarettes a day. Past Drug Use History: None Reported - Past Family History Father Family Medical History: Cancer Additional Family Medical History / Comment(s): Father had paratid cancer that metastasized to his lungs. Mother Family Medical History: Cancer, CVA/TIA, Hypertension Additional Family Medical History / Comment(s): Mother had a CVA. She also had breast cancer. Medications and Allergies Home Medications Medication Instructions Recorded Confirmed Type Aspirin 81 mg PO DAILY #30 chew 01/07/19 01/26/21 Rx Nitroglycerin Sl Tabs [Nitrostat] 0.4 mg SUBLINGUAL Q5M PRN #25 tab 01/07/19 01/26/21 Rx Losartan Potassium [Cozaar] 25 mg PO HS 05/28/19 01/26/21 History Rosuvastatin [Crestor] 10 mg PO HS 01/26/21 01/26/21 History Allergies Allergy/AdvReac Type Severity Reaction Status Date / Time Mushroom Allergy Anaphylaxis Verified 01/26/21 06:56 Physical Exam Vitals: Vital Signs Temp Pulse Pulse Resp BP BP Pulse Ox 01/26/21 02:37 16 01/26/21 01:13 98.0 F 62 16 151/79 01/26/21 00:55 67 20 152/82 97 01/25/21 23:49 20 01/25/21 23:33 97.9 F 66 20 151/84 97 Intake and Output 01/25/21 01/26/21 01/26/21 22:59 06:59 14:59 Intake Total 500 Balance 500 Intake: Intake, IV Titration 500 Amount Sodium Chloride 0.9% 1, 500 000 ml @ 100 mls/hr IV . Q10H STA Rx#:[id number] Other: Voiding Method Toilet # Voids 1 Weight 78.9 kg PHYSICAL EXAMINATION: GENERAL: The patient is alert and oriented x3, not in any acute distress. Well developed, well nourished. HEENT: Pupils are round and equally reacting to light. EOMI. No scleral icterus. No conjunctival pallor. Normocephalic, atraumatic. No pharyngeal erythema. No thyromegaly. CARDIOVASCULAR: S1 and S2 present. No murmurs, rubs, or gallops. PULMONARY: Chest is clear to auscultation, no wheezing or crackles. ABDOMEN: Soft, nontender, nondistended, normoactive bowel sounds. No palpable organomegaly. MUSCULOSKELETAL: No joint swelling or deformity. EXTREMITIES: No cyanosis, clubbing, or pedal edema. NEUROLOGICAL: Gross neurological examination did not reveal any focal deficits. SKIN: No rashes. Results CBC & Chem 7: 01/25/21 23:44 01/25/21 23:44 Labs: Abnormal Lab Results - Last 24 Hours (Table) 01/25/21 Range/Units 23:44 Chloride 112 H (98-107) mmol/L BUN 18 H (7-17) mg/dL Glucose 110 H (74-99) mg/dL Creatine Kinase 144 H (30-135) U/L Total Protein 6.2 L (6.3-8.2) g/dL Thrombosis Risk Factor Assmnt - Choose All That Apply Each Factor Represents 1 point: Age 41-60 years, Obesity (BMI >25) Thrombosis Risk Factor Assessment Total Risk Factor Score: 2 Thrombosis Risk Factor Assessment Level: Low Risk Assessment and Plan Plan: Chest pain: Possibly of unstable angina, rule out a concurrent syndromes patient will undergo stress test if that's negative patient will be discharged today. Patient may have a competent of gastroesophageal reflux disease as well patient was started on Protonix will be discharged on Prilosec a for stress test is negative. -Carotid artery disease with a stent to RCA in the past -Hyperlipidemia -Continued nicotine use: Counseling was provided.
--- NOTE | 2021-01-26 08:51 | P.DS ---
Providers Date of admission: 01/26/21 00:43 Attending physician: Esteban Negrete Consults: 01/26/21 00:43 Consult Physician Urgent Consulting Provider: Kristen Waller Consult Reason/Comments: cp Do you want consulting provider notified?: Yes Primary care physician: Stated None Hospital Course: Please refer to my history of present illness for further details Patient Condition at Discharge: Fair Plan - Discharge Summary Discharge Rx Participant: No New Discharge Prescriptions: Continue Aspirin 81 mg PO DAILY #30 chew Nitroglycerin Sl Tabs [Nitrostat] 0.4 mg SUBLINGUAL Q5M PRN #25 tab PRN Reason: Chest Pain Losartan Potassium [Cozaar] 25 mg PO HS Rosuvastatin [Crestor] 10 mg PO HS Discharge Medication List Aspirin 81 mg PO DAILY #30 chew 01/07/19 [Rx] Nitroglycerin Sl Tabs [Nitrostat] 0.4 mg SUBLINGUAL Q5M PRN #25 tab 01/07/19 [Rx] Losartan Potassium [Cozaar] 25 mg PO HS 05/28/19 [History] Rosuvastatin [Crestor] 10 mg PO HS 01/26/21 [History] Follow up Appointment(s)/Referral(s): Vin Bolivar MD [STAFF PHYSICIAN] - 1 Week Tracy Escobar MD [STAFF PHYSICIAN] - 1 Week
[2021-01-26] MEDS ORDERED: PANTOPRAZOLE 40 MG/10 ML VIAL IVP SCH (09:00)
[2021-01-26] MEDS ORDERED: ASPIRIN 81 MG PO SCH (09:00)
[2021-01-26] MEDS ORDERED: ATORVASTATIN 80 MG TAB PO SCH (09:00)
[2021-01-26 09:43] LABS: Cholesterol 221 mg/dL (<200); HDL Cholesterol 63 mg/dL (40-60); LDL Cholesterol,Calculated 147 mg/dL (0-99); Triglycerides 55 mg/dL (<150)
[2021-01-26] MEDS ORDERED: CAFFEINE CITRATE 60 MG/3 ML VIAL IV PRN (10:15)
[2021-01-26] MEDS ORDERED: AMINOPHYLLINE 500 MG/20 ML VIAL IV PRN (10:15)
[2021-01-26] MEDS ORDERED: REGADENOSON 0.4 MG/5 ML SYRINGE IV PRN (10:15)
--- NOTE | 2021-01-26 10:32 | P.CRDCN ---
History of Present Illness History of present illness: HISTORY OF PRESENTING ILLNESS This is a pleasant 55-year-old female past medical history significant for coronary artery disease s/p PCI RCA in the setting of NSTEMI 2019, hyperten zofia, dyslipidemia and chronic nicotine dependence. She follows in the office with Dr. Bolivar. We have been asked to see in consultation for chest pain. She states last night when she laid down for bed she had an acute onset of burning in the mid-sternal region. The pain was centrally located and also felt tight around her torso. The discomfort did not radiate to the back, arm, neck or jaw. She had no associated symptoms of shortness of breath, dizziness, palpitations, nausea, vomiting or diaphoresis. The pain was similar in nature to her previous HI. She got up and took an aspirin and SL nitro then called EMS. The pain did start to subside and was gone by the time EMS arrived. She has had no further symptoms since arrival. DIAGNOSTICS EKG reveals sinus mechanism with no acute ST or T-wave abnormalities. Telemetry tracings indicate sinus mechanism. Chest xray negative for an acute cardiopulmonary process. Laboratory reviewed, CBC unremarkable, sodium 141, potassium 3.9, creatinine 0.5 3, troponins negative 3, and tape proBNP 192. Current cardiac medications include aspirin 81 mg daily, losartan 25 mg daily and rosuvastatin 10 mg daily. Most recent echocardiogram obtained 2019 revealed preserved LV systolic function with EF 55-60% and mild MR. REVIEW OF SYSTEMS At the time of my exam: CONSTITUTIONAL: Denies fever or chills. CARDIOVASCULAR: Denies chest pain, shortness of breath, orthopnea, PND or palpitations. RESPIRATORY: Denies cough. GASTROINTESTINAL: Denies abdominal pain, diarrhea, constipation, nausea or vomiting. MUSCULOSKELETAL: Denies myalgias. NEUROLOGIC: Denies numbness, tingling, headacbe or weakness. ENDOCRINE: Denies fatigue, weight change, polydipsia or polyurina. GENITOURINARY: Denies burning, hematuria or urgency with micturation. HEMATOLOGIC: Denies history of anemia or bleeding. PHYSICAL EXAMINATION Blood pressure 151/79 heart rate 62 afebrile and maintaining oxygen saturation on room air. CONSTITUTIONAL: No apparent distress. HEENT: Head is normocephalic. Pupils are equal, round. Sclerae anicteric. Mucous membranes of the mouth are moist. No JVD. No carotid bruit. CHEST EXAMINATION: Lungs are clear to auscultation. No chest wall tenderness is noted on palpation or with deep breathing. HEART EXAMINATION: Regular rate and rhythm. S1, S2 heard. No murmurs, gallops or rub. ABDOMEN: Soft, nontender. Positive bowel sounds. EXTREMITIES: 2+ peripheral pulses, no lower extremity edema and no calf tenderness. NEUROLOGIC EXAMINATION: Patient is awake, alert and oriented x3. ASSESSMENT Chest pain History of NSTEMI s/p PCI RCA 2019 Coronary artery disease Hypertension Dyslipidemia Chronic nicotine dependence PLAN An acute coronary event has been ruled out. Obtain 2D echocardiogram and doppler study to assess cardiac structure and f unction. Perform lexiscan stress test to assess for reversible cardiac ischemia. Check lipid panel. Continue aspirin, losartan and crestor as previously ordered. If stress test is negative she can be discharged home and follow up with Dr. Bolivar. Thank you kindly for this consultation. Nurse Practitioner note has been reviewed, I agree with a documented findings and plan of care. Patient was seen and examined. Past Medical History Past Medical History: Coronary Artery Disease (CAD), GERD/Reflux, Myocardial Infarction ([place]), Pneumonia Additional Past Medical History / Comment(s): Bowel obstructions treated conservatively, pt states she has never had htn or elevated cholesterol-she was started on meds for these after her [place], bradycardia, bronchitis. Last Myocardial Infarction Date:: 01/05/19 History of Any Multi-Drug Resistant Organisms: None Reported Past Surgical History: Heart Catheterization With Stent, Hysterectomy Additional Past Surgical History / Comment(s): PCI with stent placement, colonoscopy. Past Anesthesia/Blood Transfusion Reactions: Motion Sickness, Postoperative Nausea & Vomiting (PONV) Date of Last Stent Placement:: 01/05/19 Past Psychological History: No Psychological Hx Reported Additional Psychological History / Comment(s): Pt has an adult reese residing with her. She is independent. Smoking Status: Current every day smoker Past Alcohol Use History: None Reported Additional Past Alcohol Use History / Comment(s): Pt started smoking as a teen and was up to a 2 ppd smoker, recently decreased to 3-5 cigarettes a day. Past Drug Use History: None Reported - Past Family History Father Family Medical History: Cancer Additional Family Medical History / Comment(s): Father had paratid cancer that metastasized to his lungs. Mother Family Medical History: Cancer, CVA/TIA, Hypertension Additional Family Medical History / Comment(s): Mother had a CVA. She also had breast cancer. Medications and Allergies Home Medications Medication Instructions Recorded Confirmed Type Aspirin 81 mg PO DAILY #30 chew 01/07/19 01/26/21 Rx Nitroglycerin Sl Tabs [Nitrostat] 0.4 mg SUBLINGUAL Q5M PRN #25 tab 01/07/19 Rx Losartan Potassium [Cozaar] 25 mg PO HS 05/28/19 01/26/21 History Rosuvastatin Calcium [Crestor] 40 mg PO DAILY #90 tab 01/26/21 Rx Allergies Allergy/AdvReac Type Severity Reaction Status Date / Time Mushroom Allergy Anaphylaxis Verified 01/26/21 06:56 Physical Exam Vitals: Vital Signs Temp Pulse Pulse Resp BP BP Pulse Ox 01/26/21 02:37 16 01/26/21 01:13 98.0 F 62 16 151/79 01/26/21 00:55 67 20 152/82 97 01/25/21 23:49 20 01/25/21 23:33 97.9 F 66 20 151/84 97 Intake and Output 01/25/21 01/26/21 01/26/21 22:59 06:59 14:59 Intake Total 500 Balance 500 Intake: Intake, IV Titration 500 Amount Sodium Chloride 0.9% 1, 500 000 ml @ 100 mls/hr IV . Q10H STA Rx#:[id number] Other: Voiding Method Toilet # Voids 1 Weight 78.9 kg Results 01/25/21 23:44 01/25/21 23:44 Cardiac Enzymes 01/25/21 01/25/21 01/26/21 Range/Units 23:44 23:44 01:19 AST 19 (14-36) U/L Troponin I <0.012 <0.012 (0.000-0.034) ng/mL 01/26/21 Range/Units 04:20 AST (14-36) U/L Troponin I <0.012 (0.000-0.034) ng/mL Coagulation 01/25/21 Range/Units 23:44 PT 9.5 (9.0-12.0) sec APTT 23.3 (22.0-30.0) sec CBC 01/25/21 Range/Units 23:44 WBC 7.5 (3.8-10.6) k/uL RBC 4.57 (3.80-5.40) m/uL Hgb 13.7 (11.4-16.0) gm/dL Hct 40.9 (34.0-46.0) % Plt Count 365 (150-450) k/uL Comprehensive Metabolic Panel 01/25/21 Range/Units 23:44 Sodium 141 (137-145) mmol/L Potassium 3.9 (3.5-5.1) mmol/L Chloride 112 H (98-107) mmol/L Carbon Dioxide 25 (22-30) mmol/L BUN 18 H (7-17) mg/dL Creatinine 0.53 (0.52-1.04) mg/dL Glucose 110 H (74-99) mg/dL Calcium 9.3 (8.4-10.2) mg/dL AST 19 (14-36) U/L ALT 11 (4-34) U/L Alkaline Phosphatase 70 (38-126) U/L Total Protein 6.2 L (6.3-8.2) g/dL Albumin 3.6 (3.5-5.0) g/dL Current Medications Generic Name Dose Route Start Last Admin Trade Name Freq PRN Reason Stop Dose Admin Aspirin 81 mg 01/26/21 09:00 01/26/21 09:00 Aspirin 81 Mg PO 81 mg DAILY ANIYAH Administration Atorvastatin Calcium 80 mg 01/26/21 09:00 01/26/21 09:00 Atorvastatin 80 Mg Tab PO 80 mg DAILY ANIYAH Administration Sodium Chloride 1,000 mls @ 100 mls/hr 01/25/21 23:35 01/25/21 23:55 Saline 0.9% IV 01/26/21 09:34 100 mls/hr .Q10H STA Administration Losartan Potassium 25 mg 01/26/21 21:00 Losartan 25 Mg Tab PO HS ANIYAH Nitroglycerin 0.4 mg 01/26/21 07:47 Nitroglycerin Sl Tabs 0.4 Mg Tab SUBLINGUAL Q5M PRN Chest Pain Pantoprazole Sodium 40 mg 01/26/21 09:00 01/26/21 09:00 Pantoprazole 40 Mg/10 Ml Vial IVP 40 mg BID ANIYAH Administration Intake and Output 01/25/21 01/26/21 01/26/21 22:59 06:59 14:59 Intake Total 500 Balance 500 Intake: Intake, IV Titration 500 Amount Sodium Chloride 0.9% 1, 500 000 ml @ 100 mls/hr IV . Q10H STA Rx#:[id number] Other: Voiding Method Toilet # Voids 1 Weight 78.9 kg 01/25/21 23:44 01/25/21 23:44
[2021-01-26 11:09] VITALS: BP 144/88; PULSE 70; TEMP 97.9
--- NOTE | 2021-01-26 12:48 | P.STRESS ---
- Stress Test Note Stress Test Results/Findings: Exam Performed: NM stress lexiscan cardiolite Exam Date: 01/26/21 Reason for Exam: CHEST PAIN Height: 5 ft 6 in Weight: 78.9 kg Protocol: LEXISCAN Stage: NA Duration of Exercise: na Resting Heart Rate: 55 Resting Blood Pressure: 151/85 Maximum Achieved Heart Rate: 95 Maximum Achieved Blood Pressure: 156/95 85% PMHR: 139 100% PMHR: 164 METS: NA Technologist Comment: Stress Test Results/Findings: At baseline EKG showed normal sinus rhythm, normal axis, minimal 0.[address] elevations/ J point elevation in the inferior lateral leads without any reciprocal changes Patient recieved IV infusion of Lexiscan 0.4mg and at peak infusion EKG showed no significant change from baseline. Conclusions: 1. Nondiagnostic EKG response to Lexiscan infusion secondary to baseline EKG abnormalities. 2. Nuclear imaging to be reported separately.
--- NOTE | 2021-01-26 13:45 | NM ---
EXAMINATION TYPE: NM stress lexiscan cardiolite DATE OF EXAM: 01/26/2021 COMPARISON: NONE HISTORY: History of tobacco use and prior angioplasty along with hypertension presents with chest radha n TECHNIQUE: After the intravenous administration of 9.9 mCi Tc 99m Sestamibi - Cardiolite resting SPE CT images acquired 45 minutes post injection. The patient received 0.4mg Lexiscan, 26.0 mCi Tc 99m Sestamibi - Stress images obtained [address] injection FINDINGS: Review of stress and rest SPECT images demonstrates some diminished uptake anterior septal wall stres s and rest images mid zone. Old infarct versus artifact. No reversible ischemia. Gated analysis shows normal wall motion with an estimated left ventricular ejection fraction of 61 %. IMPRESSION: No scintigraphic evidence for reversible ischemia.
[2021-01-26] MEDS ORDERED: LOSARTAN 25 MG TAB PO SCH (21:00)
[2021-01-26] MEDS ORDERED: ATORVASTATIN 20 MG TAB PO SCH (21:00)
--- NOTE | 2021-01-27 09:00 | ECHOF ---
Referral Reason:cp MEASUREMENTS -------- HEIGHT: 165.1 cm WEIGHT: 76.2 kg BP: RVIDd: 3.1 cm (< 3.3) IVSd: 1.3 cm (0.6 - 1.1) LVIDd: 4.3 cm (3.9 - 5.3) LVPWd: 1.2 cm (0.6 - 1.1) IVSs: 1.4 cm LVIDs: 2.9 cm LVPWs: 1.8 cm LA Diam: 3.8 cm (2.7 - 3.8) LAESV Index (A-L): 17.73 ml/m Ao Diam: 2.6 cm (2.0 - 3.7) AV Cusp: 1.7 cm (1.5 - 2.6) LA Diam: 4.2 cm (2.7 - 3.8) MV EXCURSION: 16.659 mm (> 18.000) MV EF SLOPE: 41 mm/s (70 - 150) EPSS: 0.5 cm MV E Earle: 0.51 m/s MV DecT: 241 ms MV A Earle: 0.88 m/s MV E/A Ratio: 0.58 RAP: 5.00 mmHg RVSP: 19.39 mmHg FINDINGS -------- Sinus rhythm. This was a technically good study. The left ventricular size is normal. There is mild concentric left ventricular hypertrophy. Overa ll left ventricular systolic function is normal with, an EF between 55 - 60 %. The right ventricle is normal in size. Normal LA size by volume 22+/-6 ml/m2. The right atrial size is normal. There is mild aortic valve sclerosis. There is no evidence of aortic regurgitation. Mild mitral annular calcification present. Mild mitral regurgitation is present. Mild tricuspid regurgitation present. Right ventricular systolic pressure is normal at < 35 mmHg. There is no pulmonic regurgitation present. The aortic root size is normal. There is no pericardial effusion. CONCLUSIONS -------- 1. The left ventricular size is normal. 2. There is mild concentric left ventricular hypertrophy. 3. Overall left ventricular systolic function is normal with, an EF between 55 - 60 %. 4. The right ventricle is normal in size. 5. Normal LA size by volume 22+/-6 ml/m2. 6. The right atrial size is normal. 7. There is mild aortic valve sclerosis. 8. Mild mitral annular calcification present. 9. Mild mitral regurgitation is present. 10. Mild tricuspid regurgitation present. 11. There is no pulmonic regurgitation present. 12. The aortic root size is normal. 13. There is no pericardial effusion. NURSERY LABORER: Eleanor Givens RDCS
== END 2021-01-26 14:30 | disposition home or self-care (01) ==
LOC: EC 23:32 → 3SCARD 01-26 00:43
PROVIDERS: ADMIT Hospitalist; ATTEND Hospitalist
DX: R07.89 Other chest pain (principal); K21.9 Gastro-esophageal reflux disease without esophagitis; I25.10 Atherosclerotic heart disease of native coronary artery without angina pectoris; R07.2 Precordial pain; E78.5 Hyperlipidemia, unspecified; I10 Essential (primary) hypertension; I25.2 Old myocardial infarction; R00.2 Palpitations; R00.1 Bradycardia, unspecified; R53.83 Other fatigue; E66.9 Obesity, unspecified; F17.210 Nicotine dependence, cigarettes, uncomplicated; Z68.28 Body mass index [BMI] 28.0-28.9, adult; Z79.82 Long term (current) use of aspirin; Z79.899 Other long term (current) drug therapy; Z79.02 Long term (current) use of antithrombotics/antiplatelets; Z91.018 Allergy to other foods; Z20.822 Contact with and (suspected) exposure to COVID-19; Z90.710 Acquired absence of both cervix and uterus; Z95.5 Presence of coronary angioplasty implant and graft; Z82.3 Family history of stroke; Z80.3 Family history of malignant neoplasm of breast; Z82.49 Family history of ischemic heart disease and other diseases of the circulatory system
CPT/HCPCS: 96361 ×2; 96374; 99285; 36415; 93005 ×2; 93017; 93306; 83880; 80061; 80053; 82550; 83690; 83735; 84484 ×2; 85025; 85610; 85730; 87635; 71046; 78452; G0378; A9500; J2785; C9113

== ENCOUNTER 2022-04-11 13:05 | Inpatient (IN) | payer BC ==
[2022-04-11] MEDS ORDERED: HEPARIN SODIUM 1,000 UN/ML (10ML VL) IV PRN (13:08)
[2022-04-11] MEDS ORDERED: NITROGLYCERIN-D5W PMX 50 MG in DEXTROSE/WATER 1 250ML.BAG IV ONE (13:10)
--- NOTE | 2022-04-11 13:29 | ED ---
General Adult HPI - General Stated complaint: CHEST PAIN Time Seen by Provider: 04/11/22 13:06 Source: RN notes reviewed, old records reviewed - History of Present Illness Initial comments: Patient is a 57-year-old female who is transferred here from [facility] for ACS. She is a history of cardiac disease, CAD with 1 stent. Presented with substernal chest pain with strange radiation towards her back at the outpatient facility. Cardiac workup including CT angiogram to evaluate for dissection and PE were obtained. CT imaging was negative. Images will be uploaded. Chest pain continued despite nitroglycerin tablets. Troponins were mildly elevated but upon conversation with the patient's aids counselor, Dr. Bolivar the decision was made to place the patient on a nitro drip at 10 g as well as a heparin drip. Chest pain resolved. She was transferred here for likely cath at some point. She currently is asymptomatic. Has no acute complaints. Presents for admission. - Related Data Home Medications Medication Instructions Recorded Confirmed Losartan Potassium [Cozaar] 25 mg PO HS 05/28/19 04/11/22 Aspirin 486 mg PO ONCE PRN 04/11/22 04/11/22 Aspirin EC [Ecotrin Low Dose] 81 mg PO HS 04/11/22 04/11/22 Nitroglycerin Sl Tabs [Nitrostat] 0.4 mg SL Q5M PRN 04/11/22 04/11/22 Rosuvastatin [Crestor] 10 mg PO HS 04/11/22 04/11/22 Allergies Allergy/AdvReac Type Severity Reaction Status Date / Time Mushroom Allergy Anaphylaxis Verified 04/11/22 14:28 Review of Systems ROS Statement: Those systems with pertinent positive or pertinent negative responses have been documented in the HPI. Review of Systems: CONST: Denies fever EYES: Denies blurry vision ENT: Denies nasal congestion C/V: Denies Chest pain RESP: Denies shortness of breath GI: Denies abdominal pain : Denies dysuria SKIN: Denies rash. MSK: Denies joint pain. NEURO: Denies headache ROS Other: All systems not noted in ROS Statement are negative. Past Medical History Past Medical History: Coronary Artery Disease (CAD), GERD/Reflux, Myocardial Infarction (HI), Pneumonia Additional Past Medical History / Comment(s): Bowel obstructions treated conservatively, pt states she has never had htn or elevated cholesterol-she was started on meds for these after her HI, bradycardia, bronchitis. Last Myocardial Infarction Date:: 01/05/19 History of Any Multi-Drug Resistant Organisms: None Reported Past Surgical History: Heart Catheterization With Stent, Hysterectomy Additional Past Surgical History / Comment(s): PCI with stent placement, colonoscopy. Past Anesthesia/Blood Transfusion Reactions: Motion Sickness, Postoperative Nausea & Vomiting (PONV) Date of Last Stent Placement:: 01/05/19 Past Psychological History: No Psychological Hx Reported Additional Psychological History / Comment(s): Pt has an adult reese residing with her. She is independent. Smoking Status: Current every day smoker Past Alcohol Use History: None Reported Additional Past Alcohol Use History / Comment(s): Pt started smoking as a teen and was up to a 2 ppd smoker, recently decreased to 3-5 cigarettes a day. Past Drug Use History: None Reported - Past Family History Father Family Medical History: Cancer Additional Family Medical History / Comment(s): Father had paratid cancer that metastasized to his lungs. Mother Family Medical History: Cancer, CVA/TIA, Hypertension Additional Family Medical History / Comment(s): Mother had a CVA. She also had breast cancer. General Exam - General Exam Comments Initial Comments: General: Appears in no acute distress. HEAD: Normal with no signs of head trauma. EYES: PERRLA, EOMI, conjunctiva normal, no discharge. ENT: Hearing grossly intact, normal oropharynx. RESPIRATORY: Clear breath sounds bilaterally. No wheezes, rales, or rhonchi. C/V: Regular rate and rhythm. S1 and S2 auscultated, no edema, peripheral pulses 2+ and intact throughout ABD: Abd is soft, nontender, nondistended EXT: Normal range of motion, no obvious deformity SKIN: No rashes or lesions observed on exposed skin. NEURO: Alert and oriented x 4. Cranial nerves II-XII intact. No focal sensory or strength deficits. Course Vital Signs 04/11/22 04/11/22 13:23 14:30 Temperature 98 F Pulse Rate 56 L 54 L Respiratory 18 18 Rate Blood Pressure 141/80 135/82 O2 Sat by Pulse 95 96 Oximetry Medical Decision Making - Medical Decision Making Based on the patient's presentation and physical exam, concern for ACS. She is stable at this time. We will repeat laboratory studies as well as a troponin. Repeat EKG was obtained and showed no signs of acute ischemia. Patient is asymptomatic. We will continue the nitro drip as well as heparin drip. She'll be admitted. Patient was in agreement this plan. Troponins at the outside facility were 28, followed by 30. It appears they use high sensitivity troponins. We'll repeat here. CTA imaging reading revealed "no acute intrathoracic process. No evidence of pulmonary was in." After discussion with cardiology, patient will be transferred to the Sociology Professor in stable condition. Chest pain did return after she got up to use the restroom. Patient will be admitted following cardiac cath. Initial laboratory studies were remarkable for an undetectable troponin, however I question the accuracy of this as the patient did have detectable high sensitivity troponins at the outside facility. I spoke with the admitting physician, [facility] Min[facility] who accepted the patient. - Lab Data Result diagrams: 04/11/22 13:48 04/11/22 13:48 Lab Results 04/11/22 04/11/22 04/11/22 Range/Units 13:48 13:48 13:48 WBC 6.8 (3.8-10.6) k/uL RBC 4.56 (3.80-5.40) m/uL Hgb 13.2 (11.4-16.0) gm/dL Hct 42.7 (34.0-46.0) % MCV 93.7 (80.0-100.0) fL MCH 29.0 (25.0-35.0) pg MCHC 31.0 (31.0-37.0) g/dL RDW 12.7 (11.5-15.5) % Plt Count 341 (150-450) k/uL MPV 7.2 Neutrophils % 70 % Lymphocytes % 19 % Monocytes % 5 % Eosinophils % 2 % Basophils % 1 % Neutrophils # 4.8 (1.3-7.7) k/uL Lymphocytes # 1.3 (1.0-4.8) k/uL Monocytes # 0.4 (0-1.0) k/uL Eosinophils # 0.1 (0-0.7) k/uL Basophils # 0.1 (0-0.2) k/uL PT 10.8 (9.0-12.0) sec INR 1.0 (<1.2) APTT 94.6 H (22.0-30.0) sec Sodium 140 (137-145) mmol/L Potassium 4.0 (3.5-5.1) mmol/L Chloride 111 H (98-107) mmol/L Carbon Dioxide 22 (22-30) mmol/L Anion Gap 7 mmol/L BUN 10 (7-17) mg/dL Creatinine 0.51 L (0.52-1.04) mg/dL Est GFR (CKD-EPI)AfAm >90 (>60 ml/min/1.73 sqM) Est GFR (CKD-EPI)NonAf >90 (>60 ml/min/1.73 sqM) Glucose 96 (74-99) mg/dL Calcium 8.9 (8.4-10.2) mg/dL Magnesium 2.2 (1.6-2.3) mg/dL Total Bilirubin 0.3 (0.2-1.3) mg/dL AST 22 (14-36) U/L ALT 12 (4-34) U/L Alkaline Phosphatase 78 (38-126) U/L Troponin I (0.000-0.034) ng/mL Total Protein 6.2 L (6.3-8.2) g/dL Albumin 3.6 (3.5-5.0) g/dL 04/11/22 Range/Units 13:48 WBC (3.8-10.6) k/uL RBC (3.80-5.40) m/uL Hgb (11.4-16.0) gm/dL Hct (34.0-46.0) % MCV (80.0-100.0) fL MCH (25.0-35.0) pg MCHC (31.0-37.0) g/dL RDW (11.5-15.5) % Plt Count (150-450) k/uL MPV Neutrophils % % Lymphocytes % % Monocytes % % Eosinophils % % Basophils % % Neutrophils # (1.3-7.7) k/uL Lymphocytes # (1.0-4.8) k/uL Monocytes # (0-1.0) k/uL Eosinophils # (0-0.7) k/uL Basophils # (0-0.2) k/uL PT (9.0-12.0) sec INR (<1.2) APTT (22.0-30.0) sec Sodium (137-145) mmol/L Potassium (3.5-5.1) mmol/L Chloride (98-107) mmol/L Carbon Dioxide (22-30) mmol/L Anion Gap mmol/L BUN (7-17) mg/dL Creatinine (0.52-1.04) mg/dL Est GFR (CKD-EPI)AfAm (>60 ml/min/1.73 sqM) Est GFR (CKD-EPI)NonAf (>60 ml/min/1.73 sqM) Glucose (74-99) mg/dL Calcium (8.4-10.2) mg/dL Magnesium (1.6-2.3) mg/dL Total Bilirubin (0.2-1.3) mg/dL AST (14-36) U/L ALT (4-34) U/L Alkaline Phosphatase (38-126) U/L Troponin I <0.012 (0.000-0.034) ng/mL Total Protein (6.3-8.2) g/dL Albumin (3.5-5.0) g/dL - EKG Data -: EKG Interpreted by Me EKG Comments: 12-lead Electrocardiogram Interpretation Note EKG was reviewed and interpreted by myself. 12-lead ECG performed at 1312 is interpreted by me as revealing sinus bradycardia at a rate of 52 beats per minute. Counce is normal. OH interval is 155 ms, QRS duration 75 ms, QTc is 419 ms.. There is an isolated T-wave inversion in lead V2. No other acute ST segment or T-wave abnormalities to suggest acute ischemia.. R wave progression across the precordium was satisfactory. By my interpretation this EKG is non- diagnostic for acute ischemia, with an isolated T-wave inversion in lead V2.. Disposition Clinical Impression: NSTEMI (non-ST elevated myocardial infarction) Disposition: ADMITTED IP TO THIS HOSP Condition: Serious Time of Disposition: 13:30
[2022-04-11] MEDS ORDERED: NALOXONE 0.4 MG/ML 1 ML VIAL IV PRN (13:56)
[2022-04-11 13:58] LABS: Basophils # (A) 0.1 k/uL (0-0.2); Basophils % (A) 1 %; Eosinophils # (A) 0.1 k/uL (0-0.7); Eosinophils % (A) 2 %; HCT 42.7 % (34.0-46.0); HGB 13.2 gm/dL (11.4-16.0); Lymphocytes # (A) 1.3 k/uL (1.0-4.8); Lymphocytes % (A) 19 %; MCV 93.7 fL (80.0-100.0); Mean Platelet Volume 7.2; Monocytes # (A) 0.4 k/uL (0-1.0); Monocytes % (A) 5 %; Neutrophils # (A) 4.8 k/uL (1.3-7.7); Neutrophils % (A) 70 %; Platelet Count 341 k/uL (150-450); RBC 4.56 m/uL (3.80-5.40); RDW 12.7 % (11.5-15.5); WBC 6.8 k/uL (3.8-10.6)
[2022-04-11] MEDS ORDERED: ATORVASTATIN 80 MG TAB PO STA (14:04)
[2022-04-11] MEDS ORDERED: ASPIRIN 325 MG TAB PO STA (14:04)
[2022-04-11] MEDS ORDERED: ALPRAZolam 0.25 MG TAB PO PRN (14:04)
[2022-04-11] MEDS ORDERED: ALPRAZolam 0.5 MG TAB PO PRN (14:04)
[2022-04-11] MEDS ORDERED: NITROGLYCERIN SL TABS 0.4 MG TAB SUBLINGUAL PRN (14:04)
--- NOTE | 2022-04-11 14:04 | P.CRDCN ---
History of Present Illness Consult date: 04/11/22 History of present illness: HISTORY OF PRESENT ILLNESS: This is a 57-year-old female with a past medical history significant for coronary artery disease with previous PCI to the RCA in 2019, hypertension, hyperlipidemia, and nicotine dependence. Patient follows in the office with Dr. Bolivar. We have been asked to see the patient in consultation for chest pain. Patient examined at the bedside in the emergency room. Patient states she has been having discomfort in between her shoulder blades for the past few weeks but did not think much of it because it was not accompanied with chest pain. She states yesterday she was at her mother's house when she reports getting upset about something that happened and then shortly afterwards began having chest pain. She states the pain is in the middle of her chest and radiated up into her right armpit. She states the pain is very similar to when she had her heart attack in 2019 with the exception that the burning sensation when up into her neck at that time. She denied having any shortness of breath. Denied any nausea or vomiting. Denied any diaphoresis. The patient states that she took a spirin and nitro at home which did not help her pain. She states the pain continued through most of the night and this morning she went to [facility]. She states she was given additional doses of aspirin and nitro but her pain persisted. She was started on IV heparin and IV nitro which relieved her pain. However, she reports walking to the bathroom a little while ago and her pain returned. She describes it as a dull burning sensation. The patient reports she has been compliant with all of her cardiac medications at home. She does continue to smoke and states she smokes 3-4 cigarettes a day. * EKG reveals sinus mechanism with T-wave inversions in V2. * Laboratory data: WBC 6.8. Hemoglobin 13.2. Please account 141. Creatinine obtained at [facility] was 0.6. High sensitivity troponin obtained at [facility] was 28 and 30. * Current home cardiac medications list is not updated at the time of this dictation * Most recent echocardiogram obtained in January 2021 revealed ejection fraction 55- 60% * Patient underwent Lexiscan stress test in January 2021 which was negative for ischemia * Cardiac catheterization history: December 2018 with stenting of the proximal right coronary artery REVIEW OF SYSTEMS: At the time of my exam: CONSTITUTIONAL: Denies fever or chills. HEENT: Denies blurred vision, vision changes, or eye pain. Denies hemoptysis CARDIOVASCULAR: Denies chest pain. Denies orthopnea. Denies PND. Denies palpitations RESPIRATORY: Denies shortness of breath. GASTROINTESTINAL: Denies abdominal pain. Denies nausea or vomiting. HEMATOLOGIC: Denies bleeding disorders. GENITOURINARY: Denies any blood in urine. SKIN: Denies pruitis. Denies rash. PHYSICAL EXAM: VITAL SIGNS: Reviewed. GENERAL: Well-developed in no acute distress. HEENT: Head is normocephalic. Pupils are equal, round. Sclerae anicteric. Mucous membranes of the mouth are moist. Neck supple. No JVD or thyromegaly LUNGS: Respirations even and unlabored. Lungs essentially clear to auscultation bilaterally. HEART: Regular rate and rhythm. S1 and S2 heard. ABDOMEN: Soft. Nondistended. Nontender. EXTREMITIES: Normal range of motion. No clubbing or cyanosis. Peripheral pulses intact. No lower extremity edema NEUROLOGIC: Awake and alert. Oriented x 3. ASSESSMENT: Non-STEMI Coronary artery disease with previous PCI to the RCA Hypertension Hyperlipidemia Nicotine dependence PLAN: Obtain 2D echo to assess cardiac structure and function Continue IV nitro and IV heparin Resume home cardiac medications once medication list has been reconciled Hold beta steph therapy at this time secondary to bradycardia with HRs in the 50s Patient to undergo cardiac catheterization this afternoon with Dr. Bolivar Further recommendations pending patient's course Nurse practitioner note has been reviewed by physician. Signing provider agrees with the documented findings, assessment, and plan of care. Past Medical History Past Medical History: Coronary Artery Disease (CAD), GERD/Reflux, Myocardial Infarction (PR), Pneumonia Additional Past Medical History / Comment(s): Bowel obstructions treated conservatively, pt states she has never had htn or elevated cholesterol-she was started on meds for these after her PR, bradycardia, bronchitis. Last Myocardial Infarction Date:: 01/05/19 History of Any Multi-Drug Resistant Organisms: None Reported Past Surgical History: Heart Catheterization With Stent, Hysterectomy Additional Past Surgical History / Comment(s): PCI with stent placement, colonoscopy. Past Anesthesia/Blood Transfusion Reactions: Motion Sickness, Postoperative Nausea & Vomiting (PONV) Date of Last Stent Placement:: 01/05/19 Past Psychological History: No Psychological Hx Reported Additional Psychological History / Comment(s): Pt has an adult reese residing with her. She is independent. Smoking Status: Current every day smoker Past Alcohol Use History: None Reported Additional Past Alcohol Use History / Comment(s): Pt started smoking as a teen and was up to a 2 ppd smoker, recently decreased to 3-5 cigarettes a day. Past Drug Use History: None Reported - Past Family History Father Family Medical History: Cancer Additional Family Medical History / Comment(s): Father had paratid cancer that metastasized to his lungs. Mother Family Medical History: Cancer, CVA/TIA, Hypertension Additional Family Medical History / Comment(s): Mother had a CVA. She also had breast cancer. Medications and Allergies Home Medications Medication Instructions Recorded Confirmed Type Aspirin 81 mg PO DAILY #30 chew 01/07/19 01/26/21 Rx Nitroglycerin Sl Tabs [Nitrostat] 0.4 mg SUBLINGUAL Q5M PRN #25 tab 01/07/19 01/26/21 Rx Losartan Potassium [Cozaar] 25 mg PO HS 05/28/19 01/26/21 History Rosuvastatin Calcium [Crestor] 40 mg PO DAILY #90 tab 01/26/21 Rx Allergies Allergy/AdvReac Type Severity Reaction Status Date / Time Mushroom Allergy Anaphylaxis Verified 04/11/22 13:30 Physical Exam Vitals: Vital Signs Temp Pulse Resp BP Pulse Ox 04/11/22 13:23 98 F 56 L 18 141/80 95 Intake and Output 04/10/22 04/11/22 04/11/22 22:59 06:59 14:59 Other: Weight 74.843 kg Results 04/11/22 13:48 Current Medications Generic Name Dose Route Start Last Admin Trade Name Freq PRN Reason Stop Dose Admin Heparin Sodium (Porcine) 0 unit 04/11/22 13:08 Heparin Sodium 1,000 Un/Ml (10ml Vl) IV PER PROTOCOL PRN Low PTT Protocol Heparin Sodium/Sodium Chloride 250 mls @ 8.981 mls/hr 04/11/22 13:15 25,000 unit/ Sodium Chloride IV .Q24H ANIYAH Protocol 12 UNITS/KG/HR Nitroglycerin/Dextrose 50 mg/ 250 mls @ 3 mls/hr 04/11/22 13:10 IV Solution IV 04/12/22 13:09 .Q24H ONE Protocol 10 MCG/MIN Intake and Output 04/10/22 04/11/22 04/11/22 22:59 06:59 14:59 Other: Weight 74.843 kg Patient Weight 04/12/22 06:59 Weight 74.843 kg
[2022-04-11] MEDS: HEPARIN SOD,PORK IN 0.45% NACL 25,000 UNIT in 0.45% NACL 1 250ML.BAG IV SCH (14:05)
[2022-04-11 14:12] LABS: ALT 12 U/L (4-34); AST 22 U/L (14-36); African American GFR (CKD) >90 (>60 ml/min/1.73 sqM); Alkaline Phosphatase 78 U/L (38-126); Blood Urea Nitrogen 10 mg/dL (7-17); Calcium 8.9 mg/dL (8.4-10.2); Magnesium 2.2 mg/dL (1.6-2.3); Non-African American GFR(CKD) >90 (>60 ml/min/1.73 sqM); Total Bilirubin 0.3 mg/dL (0.2-1.3)
[2022-04-11] MEDS: SODIUM CHLORIDE 0.9% 1,000 ML in EMPTY BAG 1 BAG IV SCH ×2 (14:20→20:19)
[2022-04-11] MEDS ORDERED: VERAPAMIL 2.5 MG/ML 2 ML AMP ONE (14:23)
[2022-04-11 14:29] LABS: Prothrombin Time 10.8 sec (9.0-12.0)
[2022-04-11 14:30] LABS: Partial Thromboplastin Time 94.6 sec (22.0-30.0)
[2022-04-11] MEDS ORDERED: HEPARIN SODIUM 1,000 UN/ML (10ML VL) ONE (14:31)
[2022-04-11] MEDS ORDERED: IV FLUID CONTINUATION 900 ML IV ONE (14:37)
[2022-04-11 14:49] LABS: Albumin 3.6 g/dL (3.5-5.0); Anion Gap 7 mmol/L; Carbon Dioxide 22 mmol/L (22-30); Chloride 111 mmol/L (98-107); Glucose 96 mg/dL (74-99); Sodium 140 mmol/L (137-145); Total Protein 6.2 g/dL (6.3-8.2)
[2022-04-11] MEDS ORDERED: LIDOCAINE 1% INJ 10MG/ML (5 ML VIAL-PF) SQ ONE (14:58)
[2022-04-11] MEDS ORDERED: MIDAZOLAM 2 MG/2 ML VIAL IV ONE (14:58)
[2022-04-11] MEDS ORDERED: VERAPAMIL SYRINGE (5 MG/10 ML) INTRAARTER ONE (15:00)
[2022-04-11] MEDS ORDERED: IOPAMIDOL-370 125ML BTL INJ ONE (15:05)
[2022-04-11] MEDS ORDERED: RX INFO: IV CONTRAST WAS GIVEN 1 EACH MISC MISCELLANE PRN (15:10)
--- NOTE | 2022-04-11 15:13 | P.PCN ---
Date of Procedure: 04/11/22 Operative Findings: CARDIAC CATHETERIZATION PERFORMING PHYSICIAN: Vin Bolivar MD, RPVI PROCEDURE PERFORMED: 1. Selective right and left coronary angiogram 2. Left heart catheterization INDICATION: This is a 57-year-old female patient with CAD and prior stenting of the RCA presented to the emergency room with chest discomfort and ruled in for acute coronary event. COMPLICATION: None APPROACH: Right radial artery LEVEL OF SEDATION: Moderate with a sedation length of 30 minutes PROCEDURE DESCRIPTION: After obtaining an informed consent, the patient was brought to cardiac roving tester laboratory. Local anesthesia was performed using lidocaine subcutaneously. The right radial artery was cannulated using Seldinger technique, the guidewire passed easily, following that we advanced a 5-Gibraltarian sheath dilator assembly, the wire and dilator were removed and sheath was flushed. Following that, 2 mg of verapamil along with 5000 unit heparin were given. Selective right and left coronary angiogram using a 6-Gibraltarian JR4 and JL 3.5 catheters. Following that we did left heart catheterization using 6-Gibraltarian pigtail catheter. The procedure was completed there was no complication. SELECTIVE CORONARY ANGIOGRAM: The right coronary artery: Is a large caliber vessel and a dominant vessel. The RCA stented in the midportion and the stent is patent. Left main: Is angiographically normal. Bifurcates into LCx and LAD The left circumflex: Is a large caliber vessel and nondominant vessel. The LCx is angiographically normal and gives rises into the first and second obtuse marginal branches both appeared to be angiographically normal The left anterior descending artery: Is a large caliber vessel. Its angiographically normal. Gives rise into a large diagonal branch which seems to be angiographically normal HEMODYNAMICS: The LVEDP was 12 mmHg with no significant gradient across aortic valve CONCLUSION: 1. Patent stent in the mid RCA 2. Normal left-sided filling pressures POSTPROCEDURE MANAGEMENT: Medical treatment and follow-up
[2022-04-11] MEDS ORDERED: SODIUM CHLORIDE 0.9% 1,000 ML IV SCH (15:15)
[2022-04-11] MEDS: NICOTINE 21MG/24HR PATCH TRANSDERM SCH (16:23)
[2022-04-11] MEDS: LOSARTAN 25 MG TAB PO SCH ×2 (20:17→20:18)
[2022-04-12 04:30] VITALS: TEMP 97.9
[2022-04-12] MEDS ORDERED: HEPARIN SODIUM,PORCINE 2,500 UNIT in SODIUM CHLORIDE 0.9% 250 ML IRRIGATION PRN (07:00)
[2022-04-12] MEDS ORDERED: HEPARIN SODIUM,PORCINE 10,000 UNIT in SODIUM CHLORIDE 0.9% 1,000 ML IRRIGATION PRN (07:00)
--- NOTE | 2022-04-12 07:53 | CA ---
Transthoracic Echo Report Name: Von Fierro Age: 57 Gender: F : 1965 Exam Date: 04/11/2022 15:41 Exam Location: [facility] Ht (in): 66 Wt (lb): 165 Ordering Physician: Liz Perez Attending/Referring Phys: Aviva Brady PAC Hospitalist Nocturnist Physician Alexa aVldez RDCS Procedure CPT: Indications: LV function, NSTEMI Cardiac Hx: Technical Quality: Good Contrast 1: Total Dose (mL): Contrast 2: Total Dose (mL): MEASUREMENTS (Male / Female) Normal Values 2D ECHO LV Diastolic Diameter PLAX 4.4 cm 4.2 - 5.9 / 3.9 - 5.3 cm LV Systolic Diameter PLAX 2.7 cm IVS Diastolic Thickness 1.2 cm 0.6 - 1.0 / 0.6 - 0.9 cm LVPW Diastolic Thickness 1.2 cm 0.6 - 1.0 / 0.6 - 0.9 cm LV Relative Wall Thickness 0.5 RV Internal Dim ED PLAX 2.9 cm LA Systolic Diameter LX 4.0 cm 3.0 - 4.0 / 2.7 - 3.8 cm LA Volume 59.1 cm??? 18 - 58 / 22 - 52 cm??? M-MODE Aortic Root Diameter MM 2.8 cm MV E Point Septal Separation 0.3 cm AV Cusp Separation MM 2.0 cm DOPPLER AV Peak Velocity 138.7 cm/s AV Peak Gradient 7.7 mmHg MV Area PHT 2.9 cm??? Mitral E Point Velocity 118.1 cm/s Mitral A Point Velocity 107.4 cm/s Mitral E to A Ratio 1.1 MV Deceleration Time 262.0 ms MV E' Velocity 5.7 cm/s Mitral E to MV E' Ratio 20.7 TR Peak Velocity 204.3 cm/s TR Peak Gradient 16.7 mmHg Right Ventricular Systolic Press 21.7 mmHg FINDINGS Left Ventricle Left ventricular ejection fraction is estimated at 55-60 %. Mild LVH Right Ventricle Normal right ventricular size and function. Right ventricular systolic pressure within normal limits. Right Atrium Normal right atrial size. Left Atrium Mildly increased left atrial diameter. Mildly increased left atrial volume. Mildly increased left atrial area. No evidence for an atrial septal defect. Mitral Valve Mitral valve thickened. Mitral annular calcification. Trace to mild mitral regurgitation. Aortic Valve Trileaflet aortic valve. No aortic valve stenosis or regurgitation. Tricuspid Valve Trace to mild tricuspid regurgitation. Pulmonic Valve Structurally normal pulmonic valve. Pericardium Normal pericardium. No pericardial effusion. Aorta Normal size aortic root and proximal ascending aorta. CONCLUSIONS Mild LVH Normal left ventricular ejection fraction 55-60% Trace to mild mitral regurgitation Trace to mild tricuspid regurgitation No pericardial effusion Previewed by: Dr. Wes Morris DO (Electronically Signed) Final Date: 12 April 2022 07:52
[2022-04-12] MEDS: NICOTINE 21MG/24HR PATCH TRANSDERM SCH (08:33)
[2022-04-12 08:35] VITALS: BP 114/96; PULSE 63; RESP 18
[2022-04-12 08:44] LABS: Basophils # (A) 0.1 k/uL (0-0.2); Basophils % (A) 1 %; Eosinophils # (A) 0.2 k/uL (0-0.7); Eosinophils % (A) 3 %; HCT 43.4 % (34.0-46.0); HGB 14.1 gm/dL (11.4-16.0); Lymphocytes # (A) 1.4 k/uL (1.0-4.8); Lymphocytes % (A) 19 %; MCH 30.2 pg (25.0-35.0); MCHC 32.6 g/dL (31.0-37.0); MCV 92.5 fL (80.0-100.0); Mean Platelet Volume 6.9; Monocytes # (A) 0.3 k/uL (0-1.0); Monocytes % (A) 4 %; Neutrophils % (A) 71 %; Platelet Count 324 k/uL (150-450); RBC 4.69 m/uL (3.80-5.40); WBC 7.1 k/uL (3.8-10.6)
[2022-04-12 09:00] LABS: African American GFR (CKD) >90 (>60 ml/min/1.73 sqM); Anion Gap 4 mmol/L; Blood Urea Nitrogen 9 mg/dL (7-17); Calcium 9.3 mg/dL (8.4-10.2); Carbon Dioxide 27 mmol/L (22-30); Chloride 109 mmol/L (98-107); Glucose 100 mg/dL (74-99); Non-African American GFR(CKD) >90 (>60 ml/min/1.73 sqM); Potassium 4.5 mmol/L (3.5-5.1); Sodium 140 mmol/L (137-145)
[2022-04-12] MEDS ORDERED: ATORVASTATIN 80 MG TAB PO SCH (09:00)
[2022-04-12] MEDS ORDERED: ASPIRIN 81 MG PO SCH (09:00)
[2022-04-12] MEDS ORDERED: LOSARTAN 25 MG TAB PO SCH (09:00)
[2022-04-12 09:07] LABS: INR 0.9 (<1.2); Prothrombin Time 10.4 sec (9.0-12.0)
[2022-04-12] MEDS: HEPARIN SOD,PORK IN 0.45% NACL 25,000 UNIT in 0.45% NACL 1 250ML.BAG IV SCH (11:55)
[2022-04-12] MEDS: SODIUM CHLORIDE 0.9% 1,000 ML in EMPTY BAG 1 BAG IV SCH (11:55)
--- NOTE | 2022-04-12 12:35 | P.PN ---
Subjective Progress Note Date: 04/12/22 HISTORY OF PRESENT ILLNESS: This is a 57-year-old female with a past medical history significant for coronary artery disease with previous PCI to the RCA in 2019, hypertension, hyperlipidemia, and nicotine dependence. Patient follows in the office with Dr. Bolivar. We have been asked to see the patient in consultation for chest pain. Patient examined at the bedside in the emergency room. Patient states she has been having discomfort in between her shoulder blades for the past few weeks but did not think much of it because it was not accompanied with chest pain. She states yesterday she was at her mother's house when she reports getting upset about something that happened and then shortly afterwards began having chest pain. She states the pain is in the middle of her chest and radiated up into her right armpit. She states the pain is very similar to when she had her heart attack in 2019 with the exception that the burning sensation when up into her neck at that time. She denied having any shortness of breath. Denied any nausea or vomiting. Denied any diaphoresis. The patient states that she took aspirin and nitro at home which did not help her pain. She states the pain continued through most of the night and this morning she went to [facility]. She states she was given additional doses of aspirin and nitro but her pain persisted. She was started on IV heparin and IV nitro which relieved her pain. However, she reports walking to the bathroom a little while ago and her pain returned. She describes it as a dull burning sensation. The patient reports she has been compliant with all of her cardiac medications at home. She does continue to smoke and states she smokes 3-4 cigarettes a day. * EKG reveals sinus mechanism with T-wave inversions in V2. * Laboratory data: WBC 6.8. Hemoglobin 13.2. Please account 141. Creatinine obtained at [facility] was 0.6. High sensitivity troponin obtained at [facility] was 28 and 30. * Current home cardiac medications list is not updated at the time of this dictation * Most recent echocardiogram obtained in January 2021 revealed ejection fraction 55- 60% * Patient underwent Lexiscan stress test in January 2021 which was negative for ischemia * Cardiac catheterization history: December 2018 with stenting of the proximal right coronary artery 04/12/2022 Patient underwent cardiac catheterization yesterday revealing patent stents to the RCA with no other significant obstructive disease. Patient examined this morning at the bedside. Patient denies any further episodes of chest pain or pressure. She denies shortness of breath. Vital signs are stable. She is hoping to be discharged home today. PHYSICAL EXAM: VITAL SIGNS: Reviewed. GENERAL: Well-developed in no acute distress. HEENT: Head is normocephalic. Pupils are equal, round. Sclerae anicteric. Mucous membranes of the mouth are moist. Neck supple. No JVD or thyromegaly LUNGS: Respirations even and unlabored. Lungs essentially clear to auscultation bilaterally. HEART: Regular rate and rhythm. S1 and S2 heard. ABDOMEN: Soft. Nondistended. Nontender. EXTREMITIES: Normal range of motion. No clubbing or cyanosis. Peripheral pulses intact. No lower extremity edema NEUROLOGIC: Awake and alert. Oriented x 3. ASSESSMENT: Non-STEMI, status post cardiac catheterization revealing patent stent to the RCA with no other significant obstructive disease Coronary artery disease with previous PCI to the RCA Hypertension Hyperlipidemia Nicotine dependence PLAN: Continue current cardiac medications Hold beta steph therapy at this time secondary to bradycardia with HRs in the 50s Patient is stable for discharge home today from a cardiac standpoint with close outpatient follow-up Nurse practitioner note has been reviewed by physician. Signing provider agrees with the documented findings, assessment, and plan of care. Objective - Vital Signs Vital signs: Vital Signs Temp 97.9 F 04/12/22 08:00 Pulse 63 04/12/22 08:00 Resp 18 04/12/22 08:00 BP 114/96 04/12/22 08:00 Pulse Ox 97 04/12/22 08:00 FiO2 Intake & Output 04/11/22 04/12/22 04/12/22 18:59 06:59 18:59 Intake Total 200 10 Balance 200 10 Weight 74.843 kg Intake: IV 200 10 Invasive Line 2 10 Other: Voiding Method Toilet # Voids 2 - Labs CBC & Chem 7: 04/12/22 08:28 04/12/22 08:28 Labs: Abnormal Lab Results - Last 24 Hours (Table) 04/11/22 04/11/22 04/12/22 Range/Units 13:48 13:48 08:28 APTT 94.6 H (22.0-30.0) sec Chloride 111 H 109 H (98-107) mmol/L Creatinine 0.51 L (0.52-1.04) mg/dL Glucose 100 H (74-99) mg/dL Total Protein 6.2 L (6.3-8.2) g/dL
== END 2022-04-12 15:28 | disposition home or self-care (01) | DRG 282 ==
LOC: EC 13:05 → 3SCARD 14:05
PROVIDERS: ADMIT Family Medicine; ATTEND Family Medicine
PROC: 4A023N7 Measurement of Cardiac Sampling and Pressure, Left Heart, Percutaneous Approach (ICD-10-PCS; principal; 2022-04-11 21:40)
PROC: B2111ZZ Fluoroscopy of Multiple Coronary Arteries using Low Osmolar Contrast (ICD-10-PCS; principal; 2022-04-11 21:40)
DX: I21.4 Non-ST elevation (NSTEMI) myocardial infarction (principal); E78.5 Hyperlipidemia, unspecified; I25.10 Atherosclerotic heart disease of native coronary artery without angina pectoris; I10 Essential (primary) hypertension; K21.9 Gastro-esophageal reflux disease without esophagitis; I25.2 Old myocardial infarction; F17.210 Nicotine dependence, cigarettes, uncomplicated; Z79.82 Long term (current) use of aspirin; Z79.899 Other long term (current) drug therapy; Z95.5 Presence of coronary angioplasty implant and graft; Z87.01 Personal history of pneumonia (recurrent); Z91.018 Allergy to other foods; Z80.8 Family history of malignant neoplasm of other organs or systems; Z80.1 Family history of malignant neoplasm of trachea, bronchus and lung; Z82.3 Family history of stroke; Z80.3 Family history of malignant neoplasm of breast; Z82.49 Family history of ischemic heart disease and other diseases of the circulatory system
CPT/HCPCS: 36415; 80048; 80053; 83735; 84484; 85025; 85379; 85610; 85730; 93005; 93306; 93458; 96365; 99285

== ENCOUNTER 2023-01-02 02:35 | Observation (INO) | payer BC ==
[2023-01-02] MEDS ORDERED: PANTOPRAZOLE 40 MG/10 ML VIAL IVP STA (03:02)
[2023-01-02] MEDS ORDERED: MORPHINE SULFATE 2 MG/ML SYRINGE IVP STA (03:02)
--- NOTE | 2023-01-02 03:21 | ED ---
General Adult HPI - General Chief complaint: Chest Pain Stated complaint: Chest Pain Time Seen by Provider: 01/02/23 02:45 Source: patient, EMS, RN notes reviewed, old records reviewed Mode of arrival: EMS Limitations: no limitations - History of Present Illness Initial comments: 57-year-old female with known coronary artery disease presents for evaluation of chest pain. Chest pain woke the patient from sleep. She had taken nitroglycerin at home with some improvement in symptoms. She was transported by paramedics, given aspirin and additional nitroglycerin. She reports nausea without vomiting. This was a substernal chest pressure. - Related Data Home Medications Medication Instructions Recorded Confirmed Losartan Potassium [Cozaar] 25 mg PO HS 05/28/19 01/02/23 Aspirin EC [Ecotrin Low Dose] 81 mg PO HS 04/11/22 01/02/23 Nitroglycerin Sl Tabs [Nitrostat] 0.4 mg SL Q5M PRN 04/11/22 01/02/23 Rosuvastatin [Crestor] 10 mg PO HS 04/11/22 01/02/23 Famotidine [Pepcid] 20 mg PO HS 01/02/23 01/02/23 Allergies Allergy/AdvReac Type Severity Reaction Status Date / Time Mushroom Allergy Anaphylaxis Verified 01/02/23 08:06 Review of Systems ROS Statement: Those systems with pertinent positive or pertinent negative responses have been documented in the HPI. ROS Other: All systems not noted in ROS Statement are negative. Past Medical History Past Medical History: Coronary Artery Disease (CAD), GERD/Reflux, Myocardial Infarction ([place]), Pneumonia Additional Past Medical History / Comment(s): Bowel obstructions treated conservatively, pt states she has never had htn or elevated cholesterol-she was started on meds for these after her [place], bradycardia, bronchitis. Last Myocardial Infarction Date:: 01/05/19 History of Any Multi-Drug Resistant Organisms: None Reported Past Surgical History: Heart Catheterization With Stent, Hysterectomy Additional Past Surgical History / Comment(s): PCI with stent placement, colonoscopy. Past Anesthesia/Blood Transfusion Reactions: Motion Sickness, Postoperative Nausea & Vomiting (PONV) Date of Last Stent Placement:: 01/05/19 Past Psychological History: No Psychological Hx Reported Smoking Status: Current every day smoker Past Alcohol Use History: None Reported Past Drug Use History: None Reported - Past Family History Father Family Medical History: Cancer Additional Family Medical History / Comment(s): Father had paratid cancer that metastasized to his lungs. Mother Family Medical History: Cancer, CVA/TIA, Hypertension Additional Family Medical History / Comment(s): Mother had a CVA. She also had breast cancer. General Exam Limitations: no limitations General appearance: alert, in no apparent distress Head exam: Present: atraumatic, normocephalic Eye exam: Present: normal appearance, PERRL ENT exam: Present: normal exam Neck exam: Present: normal inspection. Absent: tenderness, meningismus Respiratory exam: Present: normal lung sounds bilaterally. Absent: respiratory distress, wheezes Cardiovascular Exam: Present: regular rate, normal rhythm GI/Abdominal exam: Present: soft. Absent: distended, tenderness, guarding Extremities exam: Present: normal inspection. Absent: normal capillary refill Neurological exam: Present: alert Psychiatric exam: Present: normal affect, normal mood Skin exam: Present: warm, dry, intact. Absent: cyanosis, diaphoretic Course Vital Signs 01/02/23 01/02/23 01/02/23 02:43 05:13 06:12 Temperature 98.5 F Pulse Rate 60 66 62 Respiratory 18 18 18 Rate Blood Pressure 131/77 152/81 120/67 O2 Sat by Pulse 96 95 95 Oximetry 01/02/23 01/02/23 08:00 13:40 Temperature Pulse Rate 62 61 Respiratory 19 16 Rate Blood Pressure 139/89 129/91 O2 Sat by Pulse 94 L 94 L Oximetry EKG Findings - EKG Comments: EKG Findings:: EKG: Sinus bradycardia low voltage, rate of 53, CT interval 160, QRS duration 80, QTC 416 T-wave inversion in V2, no ST segment elevation, similar QRS morphology compared to previous EKGs. Medical Decision Making - Medical Decision Making Was pt. sent in by a medical professional or institution (, PA, [employer], urgent care, hospital, or long-term...) When possible be specific @ -[No] Did you speak to anyone other than the patient for history (EMS, parent, family, police, friend...)? What history was obtained from this source @ -[No] Did you review nursing and triage notes (agree or disagree)? Why? @ -[I reviewed and agree with nursing and triage notes] Were old charts reviewed (outside hosp., previous admission, EMS record, old EKG, old radiological studies, urgent care reports/EKG's, long-term records)? Report findings @ -Reviewed previous admission notes, previous heart cath Differential Diagnosis (chest pain, altered mental status, abdominal pain women, abdominal pain men, vaginal bleeding, weakness, fever, dyspnea, syncope, headache, dizziness, GI bleed, back pain, seizure, CVA, palpatations, mental health, musculoskeletal)? @ -Differential Chest Pain: Stable Angina, Unstable Angina, STEMI, NSTEMI Aortic Dissection, Pneumothorax, Musculoskeletal, Esophageal Spasm GERD, Cholecystitis, Pancreatitis, Zoster, this is not meant to be an all-inclusive list. EKG interpreted by me (3pts min.). @ -[As above] X-rays interpreted by me (1pt min.). @ -Negative for acute cardiopulmonary findings CT interpreted by me (1pt min.). @ -[None done] U/S interpreted by me (1pt. min.). @ -[None done] What testing was considered but not performed or refused? (CT, X-rays, U/S, labs)? Why? @ -[None] What meds were considered but not given or refused? Why? @ -[None] Did you discuss the management of the patient with other professionals (professionals i.e. , PA, [employer], lab, RT, psych nurse, social human services assistants, manager fine dining, teacher, staff antisubmarine officer, heel caser)? Give summary @ -[Case discussed with the admitting physician Was smoking cessation discussed for >3mins.? @ -[No] Was critical care preformed (if so, how long)? @ -[No] Were there social determinants of health that impacted care today? How? (H omelessness, low income, unemployed, alcoholism, drug addiction, transportation, low edu. Level, literacy, decrease access to med. care, fci, rehab)? @ -[No] Was there de-escalation of care discussed even if they declined (Discuss DNR or withdrawal of care, Hospice)? DNR status @ -[No] What co-morbidities impacted this encounter? (DM, HTN, Smoking, COPD, CAD, Cancer, CVA, ARF, Chemo, Hep., AIDS, mental health diagnosis, sleep apnea, morbid obesity)? @ -[Smoking, hypertension, CAD] Was patient admitted / discharged? Hospital course, mention meds given and route, prescriptions, significant lab abnormalities, going to OR and other pertinent info. @ -[57-year-old female with central chest pain. EKG sinus rhythm without ST segment elevation. Patient has normal CBC, normal CMP, negative initial troponin. Given her previous history she will be admitted for serial cardiac enzymes, telemetry, cardiology consultation. Undiagnosed new problem with uncertain prognosis? @ -[No] Drug Therapy requiring intensive monitoring for toxicity (Heparin, Nitro, Insulin, Cardizem)? @ -[No] Were any procedures done? @ -[No] Diagnosis/symptom? @ -[Chest pain] Acute, or Chronic, or Acute on Chronic? @ -[Acute Uncomplicated (without systemic symptoms) or Complicated (systemic symptoms)? @ -Complicated Side effects of treatment? @ -[No] Exacerbation, Progression, or Severe Exacerbation? @ -[No] Poses a threat to life or bodily function? How? (Chest pain, [place], NH, pneumonia, PE, COPD, DKA, ARF, appy, cholecystitis, CVA, Diverticulitis, Homicidal, Suicidal, threat to staff... and all critical care pts) @ -[Yes, cardiac ischemia, arrhythmia - Lab Data Result diagrams: 01/02/23 03:14 01/02/23 03:14 Lab Results 01/02/23 01/02/23 01/02/23 Range/Units 03:14 03:14 03:14 WBC 8.4 (3.8-10.6) k/uL RBC 4.58 (3.80-5.40) m/uL Hgb 13.3 (11.4-16.0) gm/dL Hct 39.9 (34.0-46.0) % MCV 87.2 (80.0-100.0) fL MCH 29.0 (25.0-35.0) pg MCHC 33.3 (31.0-37.0) g/dL RDW 13.3 (11.5-15.5) % Plt Count 276 (150-450) k/uL MPV 7.6 Neutrophils % 75 % Lymphocytes % 14 % Monocytes % 6 % Eosinophils % 3 % Basophils % 0 % Neutrophils # 6.3 (1.3-7.7) k/uL Lymphocytes # 1.2 (1.0-4.8) k/uL Monocytes # 0.5 (0-1.0) k/uL Eosinophils # 0.3 (0-0.7) k/uL Basophils # 0.0 (0-0.2) k/uL PT 10.3 (9.0-12.0) sec INR 1.0 (<1.2) APTT 24.3 (22.0-30.0) sec Sodium 139 (137-145) mmol/L Potassium 4.0 (3.5-5.1) mmol/L Chloride 110 H (98-107) mmol/L Carbon Dioxide 23 (22-30) mmol/L Anion Gap 6 mmol/L BUN 11 (7-17) mg/dL Creatinine 0.57 (0.52-1.04) mg/dL Est GFR (CKD-EPI)AfAm >90 (>60 ml/min/1.73 sqM) Est GFR (CKD-EPI)NonAf >90 (>60 ml/min/1.73 sqM) Glucose 107 H (74-99) mg/dL Calcium 8.0 L (8.4-10.2) mg/dL Magnesium 2.2 (1.6-2.3) mg/dL Total Bilirubin 0.4 (0.2-1.3) mg/dL AST 17 (14-36) U/L ALT 13 (4-34) U/L Alkaline Phosphatase 60 (38-126) U/L Troponin I (0.000-0.034) ng/mL Total Protein 5.7 L (6.3-8.2) g/dL Albumin 3.2 L (3.5-5.0) g/dL Lipase 69 (23-300) U/L 01/02/23 Range/Units 03:14 WBC (3.8-10.6) k/uL RBC (3.80-5.40) m/uL Hgb (11.4-16.0) gm/dL Hct (34.0-46.0) % MCV (80.0-100.0) fL MCH (25.0-35.0) pg MCHC (31.0-37.0) g/dL RDW (11.5-15.5) % Plt Count (150-450) k/uL MPV Neutrophils % % Lymphocytes % % Monocytes % % Eosinophils % % Basophils % % Neutrophils # (1.3-7.7) k/uL Lymphocytes # (1.0-4.8) k/uL Monocytes # (0-1.0) k/uL Eosinophils # (0-0.7) k/uL Basophils # (0-0.2) k/uL PT (9.0-12.0) sec INR (<1.2) APTT (22.0-30.0) sec Sodium (137-145) mmol/L Potassium (3.5-5.1) mmol/L Chloride (98-107) mmol/L Carbon Dioxide (22-30) mmol/L Anion Gap mmol/L BUN (7-17) mg/dL Creatinine (0.52-1.04) mg/dL Est GFR (CKD-EPI)AfAm (>60 ml/min/1.73 sqM) Est GFR (CKD-EPI)NonAf (>60 ml/min/1.73 sqM) Glucose (74-99) mg/dL Calcium (8.4-10.2) mg/dL Magnesium (1.6-2.3) mg/dL Total Bilirubin (0.2-1.3) mg/dL AST (14-36) U/L ALT (4-34) U/L Alkaline Phosphatase (38-126) U/L Troponin I <0.012 (0.000-0.034) ng/mL Total Protein (6.3-8.2) g/dL Albumin (3.5-5.0) g/dL Lipase (23-300) U/L Disposition Clinical Impression: Chest pain, Coronary artery disease Disposition: ADMITTED IP TO THIS HOSP Condition: Stable Is patient prescribed a controlled substance at d/c from ED?: No Time of Disposition: 04:39
[2023-01-02 03:23] LABS: Basophils % (A) 0 %; Eosinophils # (A) 0.3 k/uL (0-0.7); Eosinophils % (A) 3 %; HCT 39.9 % (34.0-46.0); HGB 13.3 gm/dL (11.4-16.0); Lymphocytes # (A) 1.2 k/uL (1.0-4.8); Lymphocytes % (A) 14 %; MCHC 33.3 g/dL (31.0-37.0); MCV 87.2 fL (80.0-100.0); Mean Platelet Volume 7.6; Monocytes # (A) 0.5 k/uL (0-1.0); Monocytes % (A) 6 %; Neutrophils # (A) 6.3 k/uL (1.3-7.7); Neutrophils % (A) 75 %; Platelet Count 276 k/uL (150-450); RBC 4.58 m/uL (3.80-5.40); RDW 13.3 % (11.5-15.5); WBC 8.4 k/uL (3.8-10.6)
[2023-01-02 03:37] LABS: ALT 13 U/L (4-34); AST 17 U/L (14-36); African American GFR (CKD) >90 (>60 ml/min/1.73 sqM); Albumin 3.2 g/dL (3.5-5.0); Alkaline Phosphatase 60 U/L (38-126); Anion Gap 6 mmol/L; Blood Urea Nitrogen 11 mg/dL (7-17); Carbon Dioxide 23 mmol/L (22-30); Chloride 110 mmol/L (98-107); Glucose 107 mg/dL (74-99); Lipase 69 U/L (23-300); Magnesium 2.2 mg/dL (1.6-2.3); Non-African American GFR(CKD) >90 (>60 ml/min/1.73 sqM); Partial Thromboplastin Time 24.3 sec (22.0-30.0); Prothrombin Time 10.3 sec (9.0-12.0); Sodium 139 mmol/L (137-145); Total Bilirubin 0.4 mg/dL (0.2-1.3); Total Protein 5.7 g/dL (6.3-8.2)
[2023-01-02] MEDS ORDERED: MORPHINE SULFATE 4 MG/ML SYRINGE IVP STA (04:22)
[2023-01-02] MEDS ORDERED: MORPHINE SULFATE 4 MG/ML SYRINGE IV PRN (04:34)
[2023-01-02] MEDS ORDERED: NALOXONE 0.4 MG/ML 1 ML VIAL IV PRN (04:34)
[2023-01-02] MEDS ORDERED: ONDANSETRON 4 MG/2 ML VIAL IVP PRN (04:34)
[2023-01-02] MEDS ORDERED: ACETAMINOPHEN TAB 325 MG TAB PO PRN (04:34)
--- NOTE | 2023-01-02 05:37 | XR ---
EXAM: XR Chest, 2 Views CLINICAL HISTORY: ITS.REASON XR Reason: Chest Pain TECHNIQUE: Frontal and lateral views of the chest. COMPARISON: 04/11/2022 FINDINGS: Lungs: Unremarkable. No consolidation. Pleural space: Unremarkable. No pneumothorax. Heart: Unremarkable. No cardiomegaly. Mediastinum: Unremarkable. Bones/joints: Unremarkable. IMPRESSION: Normal chest x-rays.
--- NOTE | 2023-01-02 10:59 | P.CRDCN ---
History of Present Illness Consult date: 01/02/23 History of present illness: HISTORY OF PRESENT ILLNESS: This is a 57-year-old female with a past medical history significant for coronary artery disease with previous stenting of the RCA, hypertension, hyperlipidemia, and nicotine dependence. Patient follows in the office with Dr. Bolivar. We have been asked to see the patient in consultation for chest pain. Patient examined at the bedside. Patient states that she developed chest pain overnight when she was sleeping. She states that she took a nitro at home which did not help. She called EMS and was brought to the hospital for further evaluation. The patient states that she received morphine in the emergency room which helped her pain. She denies any further episodes of chest pain. Patient states the pain is not worse with deep inspiration. She states that her chest does hurt when she presses on it. She states this does not feel similar to when she had her stenting in 2019. She states her symptoms at that time were similar to heartburn. * EKG reveals sinus mechanism with no signs of acute ischemia * Chest xray negative for acute process * Laboratory data: * Current home cardiac medications include aspirin 81 mg, Cozaar 25 mg, Crestor 10 mg * Most recent echocardiogram obtained in March 2022 revealed normal ejection fraction and mild MR. This was completed in the cardiology office * Cardiac catheterization history: March 2022 revealing patent stent in the RCA REVIEW OF SYSTEMS: At the time of my exam: CONSTITUTIONAL: Denies fever or chills. HEENT: Denies blurred vision, vision changes, or eye pain. Denies hemoptysis CARDIOVASCULAR: Denies chest pain. Denies orthopnea. Denies PND. Denies palpitations RESPIRATORY: Denies shortness of breath. GASTROINTESTINAL: Denies abdominal pain. Denies nausea or vomiting. HEMATOLOGIC: Denies bleeding disorders. GENITOURINARY: Denies any blood in urine. SKIN: Denies pruitis. Denies rash. PHYSICAL EXAM: VITAL SIGNS: Reviewed. GENERAL: Well-developed in no acute distress. HEENT: Head is normocephalic. Pupils are equal, round. Sclerae anicteric. Mucous membranes of the mouth are moist. Neck supple. No JVD or thyromegaly LUNGS: Respirations even and unlabored. Lungs essentially clear to auscultation bilaterally. HEART: Regular rate and rhythm. S1 and S2 heard. ABDOMEN: Soft. Nondistended. Nontender. EXTREMITIES: Normal range of motion. No clubbing or cyanosis. Peripheral pulses intact. No lower extremity edema NEUROLOGIC: Awake and alert. Oriented x 3. ASSESSMENT: Chest pain, troponins negative 1 Coronary artery disease with previous stenting of the RCA, 2018 Hypertension Hyperlipidemia Ongoing nicotine dependence, patient states she smokes 6 cigarettes per day PLAN: Obtain 2-D echo to assess cardiac structure and function Trend troponins. Currently only one negative troponin available. Possible stress testing pending patient's troponin levels Obtain lipid panel and hemoglobin A1c Further recommendations per patient's course Nurse practitioner note has been reviewed by physician. Signing provider agrees with the documented findings, assessment, and plan of care. Past Medical History Past Medical History: Coronary Artery Disease (CAD), GERD/Reflux, Myocardial Infarction ([place]), Pneumonia Additional Past Medical History / Comment(s): Bowel obstructions treated conservatively, pt states she has never had htn or elevated cholesterol-she was started on meds for these after her [place], bradycardia, bronchitis. Last Myocardial Infarction Date:: 01/05/19 History of Any Multi-Drug Resistant Organisms: None Reported Past Surgical History: Heart Catheterization With Stent, Hysterectomy Additional Past Surgical History / Comment(s): PCI with stent placement, colonoscopy. Past Anesthesia/Blood Transfusion Reactions: Motion Sickness, Postoperative Nausea & Vomiting (PONV) Date of Last Stent Placement:: 01/05/19 Past Psychological History: No Psychological Hx Reported Smoking Status: Current every day smoker Past Alcohol Use History: None Reported Past Drug Use History: None Reported - Past Family History Father Family Medical History: Cancer Additional Family Medical History / Comment(s): Father had paratid cancer that metastasized to his lungs. Mother Family Medical History: Cancer, CVA/TIA, Hypertension Additional Family Medical History / Comment(s): Mother had a CVA. She also had breast cancer. Medications and Allergies Home Medications Medication Instructions Recorded Confirmed Type Losartan Potassium [Cozaar] 25 mg PO HS 05/28/19 01/02/23 History Aspirin EC [Ecotrin Low Dose] 81 mg PO HS 04/11/22 01/02/23 History Nitroglycerin Sl Tabs [Nitrostat] 0.4 mg SL Q5M PRN 04/11/22 01/02/23 History Rosuvastatin [Crestor] 10 mg PO HS 04/11/22 01/02/23 History Famotidine [Pepcid] 20 mg PO HS 01/02/23 01/02/23 History Allergies Allergy/AdvReac Type Severity Reaction Status Date / Time Mushroom Allergy Anaphylaxis Verified 01/02/23 08:06 Physical Exam Vitals: Vital Signs Temp Pulse Resp BP Pulse Ox 01/02/23 08:00 62 19 139/89 94 L 01/02/23 06:12 62 18 120/67 95 01/02/23 05:13 66 18 152/81 95 01/02/23 02:43 98.5 F 60 18 131/77 96 Intake and Output 01/01/23 01/02/23 01/02/23 22:59 06:59 14:59 Other: Weight 75.296 kg Results 01/02/23 03:14 01/02/23 03:14 Cardiac Enzymes 01/02/23 01/02/23 Range/Units 03:14 03:14 AST 17 (14-36) U/L Troponin I <0.012 (0.000-0.034) ng/mL Coagulation 01/02/23 Range/Units 03:14 PT 10.3 (9.0-12.0) sec APTT 24.3 (22.0-30.0) sec CBC 01/02/23 Range/Units 03:14 WBC 8.4 (3.8-10.6) k/uL RBC 4.58 (3.80-5.40) m/uL Hgb 13.3 (11.4-16.0) gm/dL Hct 39.9 (34.0-46.0) % Plt Count 276 (150-450) k/uL Comprehensive Metabolic Panel 01/02/23 Range/Units 03:14 Sodium 139 (137-145) mmol/L Potassium 4.0 (3.5-5.1) mmol/L Chloride 110 H (98-107) mmol/L Carbon Dioxide 23 (22-30) mmol/L BUN 11 (7-17) mg/dL Creatinine 0.57 (0.52-1.04) mg/dL Glucose 107 H (74-99) mg/dL Calcium 8.0 L (8.4-10.2) mg/dL AST 17 (14-36) U/L ALT 13 (4-34) U/L Alkaline Phosphatase 60 (38-126) U/L Total Protein 5.7 L (6.3-8.2) g/dL Albumin 3.2 L (3.5-5.0) g/dL Current Medications Generic Name Dose Route Start Last Admin Trade Name Freq PRN Reason Stop Dose Admin Acetaminophen 650 mg 01/02/23 04:34 Acetaminophen Tab 325 Mg Tab PO Q6HR PRN Mild Pain or Fever > 100.5 Aspirin 81 mg 01/02/23 21:00 Aspirin 81 Mg PO HS ANIYAH Atorvastatin Calcium 20 mg 01/02/23 21:00 Atorvastatin 20 Mg Tab PO HS ANIYAH Losartan Potassium 25 mg 01/02/23 21:00 Losartan 25 Mg Tab PO HS ANIYAH Morphine Sulfate 4 mg 01/02/23 04:34 Morphine Sulfate 4 Mg/Ml Syringe IV Q4HR PRN Severe Pain (Scale 7 to 10) Naloxone HCl 0.2 mg 01/02/23 04:34 Naloxone 0.4 Mg/Ml 1 Ml Vial IV Q2M PRN Opioid Reversal Ondansetron HCl 4 mg 01/02/23 04:34 Ondansetron 4 Mg/2 Ml Vial IVP Q8HR PRN Nausea And Vomiting Intake and Output 01/01/23 01/02/23 01/02/23 22:59 06:59 14:59 Other: Weight 75.296 kg 01/02/23 03:14 01/02/23 03:14
[2023-01-02] MEDS: NICOTINE 21MG/24HR PATCH TRANSDERM SCH (16:03)
[2023-01-02 16:06] LABS: LDL Cholesterol,Calculated 80.7 mg/dL (0.0-131.0)
--- NOTE | 2023-01-02 16:24 | P.HPIM ---
History of Present Illness H&P Date: 01/02/23 Chief Complaint: Chest pain This is a pleasant 57-year-old patient, follows with Dr. Clayton. Chronic stable medical conditions include CAD with a stent to RCA [address] Mills, GERD, hyperlipidemia, smoker, hyperlipidemia. Overnight patient developed chest pressure, was woken up from sleep.. Middle of the chest. Lasting with good 2 hours. No radiation. Short of breath. No perspiration. No dizziness or lightheadedness. Decided to come in. Initial troponin was negative. Review of systems: GEN.: None EYES: None HEENT: None NECK: None RESPIRATORY: None CARDIOVASCULAR: As above GASTROINTESTINAL: None GENITOURINARY: None MUSCULOSKELETAL: None LYMPHATICS: None HEMATOLOGICAL: None PSYCHIATRY: None NEUROLOGICAL: None Past medical history to include: CAD with stent to RCA 3 years ago, GERD, hyperlipidemia Social history: Lives with her daughter. Works as a cook. Started smoking as a teenager was up to 2 packs a day. Down to a few cigarettes a day. No alcohol. Physical examination: VITAL SIGNS: 98.5, 60, 18, 131/77, and he 5% on room air] GENERAL: BMI 26, reclining, comfortable. EYES: Pupils equal. Conjunctiva normal. HEENT: External appearance of nose and ears normal, oral cavity grossly normal. NECK: JVD not raised; masses not palpable. HEART: First and second heart sounds are normal; no edema. LUNGS: Respiratory rate normal; clear to auscultation. ABDOMEN: Soft, nontender, liver spleen not palpable, no masses palpable. PSYCH: Alert and oriented x3; mood and affect normal. MUSCULOSKELETAL:No Clubbing/cyanosis;muscles-grossly intact NEUROLOGICAL: Cranial nerves grossly intact; no facial asymmetry, power and sensation grossly intact. LYMPHATICS: No lymph nodes palpable in the axilla and neck INVESTIGATIONS, reviewed in the clinical context: White count 8.4 hemoglobin 13.3 platelets 276 potassium 4 BUN 11 creatinine 0.57 LDL 80.7 EKG tracing personally reviewed by me-sinus rhythm. T-wave in lead V1 and V2 Chest x-ray film personally reviewed by me-some hyperinflation Assessment and plan: -Probable unstable angina with pain coming on at rest in unknown CAD Currently chest pain-free. Aspirin, Lipitor, Cozaar,. Heart rate is close to 60. Hold beta steph Telemetry. Consult cardiology -Chronic nicotine dependence, cigarettes smoker Nicotine patch -Essential hypertension Cozaar 25 daily at bedtime -GERD Pepcid 20 mg daily at bedtime -Hyperlipidemia Lipitor 20 mg daily at bedtime Care was discussed with the patient. Questions answered. Stress test tomorrow. Past Medical History Past Medical History: Coronary Artery Disease (CAD), GERD/Reflux, Myocardial Infarction (CA), Pneumonia Additional Past Medical History / Comment(s): Bowel obstructions treated conservatively, pt states she has never had htn or elevated cholesterol-she was started on meds for these after her CA, bradycardia, bronchitis. Last Myocardial Infarction Date:: 01/05/19 History of Any Multi-Drug Resistant Organisms: None Reported Past Surgical History: Heart Catheterization With Stent, Hysterectomy Additional Past Surgical History / Comment(s): PCI with stent placement, colonoscopy. Past Anesthesia/Blood Transfusion Reactions: Motion Sickness, Postoperative Nausea & Vomiting (PONV) Date of Last Stent Placement:: 01/05/19 Past Psychological History: No Psychological Hx Reported Smoking Status: Current every day smoker Past Alcohol Use History: None Reported Past Drug Use History: None Reported - Past Family History Father Family Medical History: Cancer Additional Family Medical History / Comment(s): Father had paratid cancer that metastasized to his lungs. Mother Family Medical History: Cancer, CVA/TIA, Hypertension Additional Family Medical History / Comment(s): Mother had a CVA. She also had breast cancer. Medications and Allergies Home Medications Medication Instructions Recorded Confirmed Type Losartan Potassium [Cozaar] 25 mg PO HS 05/28/19 01/02/23 History Aspirin EC [Ecotrin Low Dose] 81 mg PO HS 04/11/22 01/02/23 History Nitroglycerin Sl Tabs [Nitrostat] 0.4 mg SL Q5M PRN 04/11/22 01/02/23 History Rosuvastatin [Crestor] 10 mg PO HS 04/11/22 01/02/23 History Famotidine [Pepcid] 20 mg PO HS 01/02/23 01/02/23 History Allergies Allergy/AdvReac Type Severity Reaction Status Date / Time Mushroom Allergy Anaphylaxis Verified 01/02/23 08:06 Physical Exam Vitals: Vital Signs Temp Pulse Resp BP Pulse Ox 01/02/23 08:00 62 19 139/89 94 L 01/02/23 06:12 62 18 120/67 95 01/02/23 05:13 66 18 152/81 95 01/02/23 02:43 98.5 F 60 18 131/77 96 Intake and Output 01/01/23 01/02/23 01/02/23 22:59 06:59 14:59 Other: Weight 75.296 kg Results CBC & Chem 7: 01/02/23 03:14 01/02/23 03:14 Labs: Abnormal Lab Results - Last 24 Hours (Table) 01/02/23 Range/Units 03:14 Chloride 110 H (98-107) mmol/L Glucose 107 H (74-99) mg/dL Calcium 8.0 L (8.4-10.2) mg/dL Total Protein 5.7 L (6.3-8.2) g/dL Albumin 3.2 L (3.5-5.0) g/dL
[2023-01-02] MEDS ORDERED: CALCIUM CARBONATE 500 MG CHEWABLE PO PRN (16:25)
[2023-01-02] MEDS ORDERED: MELATONIN 3 MG TABLET PO PRN (16:25)
[2023-01-02] MEDS ORDERED: LACTULOSE 20 GM/30 ML CUP PO PRN (16:25)
[2023-01-02] MEDS ORDERED: LORazepam 0.5 MG TAB PO PRN (16:25)
[2023-01-02] MEDS ORDERED: ASPIRIN 81 MG PO SCH (21:00)
[2023-01-02] MEDS ORDERED: FAMOTIDINE 20 MG TAB PO SCH (21:00)
[2023-01-02] MEDS ORDERED: ATORVASTATIN 20 MG TAB PO SCH (21:00)
[2023-01-02] MEDS ORDERED: LOSARTAN 25 MG TAB PO SCH (21:00)
[2023-01-02 23:32] VITALS: RESP 16
[2023-01-03] MEDS ORDERED: DOBUTamine DRIP for NUC MED 500 MG in DEXTROSE/WATER 1 250ML.BAG IV PRN (06:00)
--- NOTE | 2023-01-03 10:30 | P.PN ---
Subjective Progress Note Date: 01/03/23 HISTORY OF PRESENT ILLNESS: This is a 57-year-old female with a past medical history significant for coronary artery disease with previous stenting of the RCA, hypertension, hyperlipidemia, and nicotine dependence. Patient follows in the office with Dr. Bolivar. We have been asked to see the patient in consultation for chest pain. Patient examined at the bedside. Patient states that she developed chest pain overnight when she was sleeping. She states that she took a nitro at home which did not help. She called EMS and was brought to the hospital for further evaluation. The patient states that she received morphine in the emergency room which helped her pain. She denies any further episodes of chest pain. Patient states the pain is not worse with deep inspiration. She states that her chest does hurt when she presses on it. She states this does not feel similar to when she had her stenting in 2019. She states her symptoms at that time were similar to heartburn. * EKG reveals sinus mechanism with no signs of acute ischemia * Chest xray negative for acute process * Laboratory data: * Current home cardiac medications include aspirin 81 mg, Cozaar 25 mg, Crestor 10 mg * Most recent echocardiogram obtained in March 2022 revealed normal ejection fraction and mild MR. This was completed in the cardiology office * Cardiac catheterization history: March 2022 revealing patent stent in the RCA 01/03/2023 Patient examined this morning at the bedside. Patient states she does not feel well this morning. She is complaining of epigastric/chest pain. EKG obtained with no evidence of ischemic changes and similar to previous EKGs. Stat troponin obtained which was negative. Patient's vital signs are stable. PHYSICAL EXAM: VITAL SIGNS: Reviewed. GENERAL: Well-developed in no acute distress. HEENT: Head is normocephalic. Pupils are equal, round. Sclerae anicteric. Mucous membranes of the mouth are moist. Neck supple. No JVD or thyromegaly LUNGS: Respirations even and unlabored. Lungs essentially clear to auscultation bilaterally. HEART: Regular rate and rhythm. S1 and S2 heard. ABDOMEN: Soft. Nondistended. Nontender. EXTREMITIES: Normal range of motion. No clubbing or cyanosis. Peripheral pulses intact. No lower extremity edema NEUROLOGIC: Awake and alert. Oriented x 3. ASSESSMENT: Chest pain, troponins negative 3 Coronary artery disease with previous stenting of the RCA, 2018 Hypertension Hyperlipidemia Ongoing nicotine dependence, patient states she smokes 6 cigarettes per day PLAN: Continue current cardiac medications Patient will undergo dobutamine stress test today. If negative, she may be discharged home Further recommendations pending patient's course Nurse practitioner note has been reviewed by physician. Signing provider agrees with the documented findings, assessment, and plan of care. Objective - Vital Signs Vital signs: Vital Signs Temp 98.3 F 01/03/23 07:25 Pulse 62 01/03/23 08:00 Resp 16 01/03/23 07:25 BP 158/91 01/03/23 07:25 Pulse Ox 97 01/03/23 08:30 FiO2 Intake & Output 01/02/23 01/03/23 01/03/23 18:59 06:59 18:59 Output Total 0 Balance 0 Weight 75.296 kg Output: Emesis 0 Other: # Voids 1 1 - Labs CBC & Chem 7: 01/02/23 03:14 01/02/23 03:14 Labs: Abnormal Lab Results - Last 24 Hours (Table) 01/02/23 Range/Units 10:36 HDL Cholesterol 62.50 H (40.00-60.00) mg/dL
[2023-01-03] MEDS ORDERED: DOBUTamine DRIP for NUC MED 500 MG/250 ML BAG IV ONE (11:15)
[2023-01-03] MEDS: NICOTINE 21MG/24HR PATCH TRANSDERM SCH (12:36)
[2023-01-03 15:22] VITALS: BP 108/66; PULSE 67; TEMP 98.1
--- NOTE | 2023-01-03 15:38 | CA ---
Transthoracic Echo Report Name: Von Fierro Age: 57 Gender: F : 1965 Exam Date: 01/02/2023 13:15 Exam Location: [facility] Ht (in): 67 Wt (lb): 166 Ordering Physician: Liz Perez Attending/Referring Phys: [id number], Chris Sales Office Manager Jerzy Brennan RDCS Procedure CPT: Indications: LV function Cardiac Hx: Technical Quality: Fair Contrast 1: Total Dose (mL): Contrast 2: Total Dose (mL): MEASUREMENTS (Male / Female) Normal Values 2D ECHO LV Diastolic Diameter PLAX 4.4 cm 4.2 - 5.9 / 3.9 - 5.3 cm LV Systolic Diameter PLAX 2.8 cm IVS Diastolic Thickness 1.7 cm 0.6 - 1.0 / 0.6 - 0.9 cm LVPW Diastolic Thickness 1.3 cm 0.6 - 1.0 / 0.6 - 0.9 cm LV Relative Wall Thickness 0.7 RV Internal Dim ED PLAX 2.8 cm LA Volume 54.8 cm??? 18 - 58 / 22 - 52 cm??? M-MODE Aortic Root Diameter MM 2.8 cm AV Cusp Separation MM 1.9 cm DOPPLER LVOT Peak Velocity 104.1 cm/s LVOT Peak Gradient 4.3 mmHg MV Area PHT 4.0 cm??? MR Peak Velocity 541.5 cm/s MR Peak Gradient 117.3 mmHg Mitral E Point Velocity 97.4 cm/s Mitral A Point Velocity 107.6 cm/s Mitral E to A Ratio 0.9 MV Deceleration Time 188.2 ms TR Peak Velocity 240.8 cm/s TR Peak Gradient 23.2 mmHg Right Atrial Pressure 3.0 mmHg Pulmonary Artery Systolic Pressu 26.2 mmHg Right Ventricular Systolic Press 26.2 mmHg FINDINGS Left Ventricle Severely increased septal wall thickness. Moderately increased posterior wall thickness. Left ventricular cavity size normal. Left ventricular ejection fraction is estimated at 55--60 %. Right Ventricle Normal right ventricular size and function. Right ventricular systolic pressure within normal limits. Right Atrium Normal right atrial size. Left Atrium Mildly increased left atrial volume. Mitral Valve [id number] mitral regurgitation. Aortic Valve Trileaflet aortic valve. No aortic regurgitation. No aortic stenosis. Tricuspid Valve Structurally normal tricuspid valve. Mild tricuspid regurgitation. Pulmonic Valve Structurally normal pulmonic valve. No pulmonic regurgitation. Pericardium No pericardial or pleural effusion. Aorta Normal size aortic root and proximal ascending aorta. CONCLUSIONS LVH with preserved systolic function Previewed by: Dr. Sidney Avalos MD (Electronically Signed) Final Date: 03 January 2023 15:37
--- NOTE | 2023-01-03 16:10 | CA ---
Dobutamine Stress Echocardiogram Report Von Fierro Age: 57 Gender: F : 1965 Exam Date: 01/03/2023 10:59 Exam Location: [facility] Ordering Physician: Liz Perez Referring Physician: [id number] Consumer Marketing Analyst: Alexa Valdez RDCS Technologist: Ht (in): 67 Wt (lb): 166 Procedure CPT: Indication: CP ICD-9 Codes: Rhythm: Patient History: CHEST PAIN, DIFFICULTY IN BREATHING, ANGINA, HTN, ELEVATED CHOLESTEROL LEVELS, CURRENT SMOKER (0.25 X 40 YEARS), PRIOR OH, PRIOR CATH Cardiac Medications: Medications in past 24 hours: Contrast: Total Dose (mL): Stress Results Protocol: Peak Dose (???g/kg/min): Duration (min:sec): Atropine:(mg) Target HR: 138 Double Product: [id number] Resting HR: 58 Resting BP: 108 / 84 Peak HR: 141 Peak BP: 190 / 71 Max Predicted HR: 162 87 % Max Predicted HR Stress Summary: BP Response: Reason for Termination: INFUSION COMPLETE Cardiac Symptoms: NO SYMPTOMS ECG Analysis Resting EKG: Stress EKG: Arrhythmia: Echo Analysis Base Echo Analysis: Low Echo Anaylsis: Peak Echo Analysis: Recovery Echo: MEASUREMENTS (Male/Female) Normal Values CONCLUSIONS [facility] stress echo. Known coronary artery disease stenting to the RCA in the past Baseline heart rate 59 beats a minute, Baseline blood pressure 108/84 mmHg Patient received dobutamine infusion per protocol up to 30 mics. Peak heart rate 141 beats a minute. Peak blood pressure 190/71 mmHg No ECG is for ischemia No arrhythmias Baseline 2-D echo May showed normal LV systolic function without segmental wall motion abnormalities The dobutamine there is a stepwise augmentation overall LV contractility without development of any wall motion abnormalities @Recovery decreased global LV systolic function within normal Impression no ECG or echocardiographic evidence for ischemia Dr. Sidney Avalos MD (Electronically Signed) Final Date: 03 January 2023 16:09
--- NOTE | 2023-01-04 22:33 | P.DS ---
Providers Date of admission: 01/02/23 04:35 Expected date of discharge: 01/03/23 Attending physician: Federico Pritchett Consults: 01/02/23 04:34 Consult Physician Routine Consulting Provider: Vin Bolivar Consult Reason/Comments: CP Do you want consulting provider notified?: Yes Primary care physician: Kory Banks [facility] Course: Chief Complaint: Chest pain This is a pleasant 57-year-old patient, follows with Dr. Clayton. Chronic stable medical conditions include CAD with a stent to RCA [address] Mills, GERD, hyperlipidemia, smoker, hyperlipidemia. Overnight patient developed chest pressure, was woken up from sleep.. Middle of the chest. Lasting with good 2 hours. No radiation. Short of breath. No perspiration. No dizziness or lightheadedness. Decided to come in. Initial troponin was negative. January 03: Dobutamine stress echocardiogram negative. Patient symptom free. Cleared by cardiology. Follow up with Dr. 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 Works as a cook. Started smoking as a teenager was up to 2 packs a day. Down to a few cigarettes a day. No alcohol. Physical examination: VITAL SIGNS: 98.1, 67, 16, 1 8 x 66, 97% room air GENERAL: BMI 26, reclining, comfortable. EYES: Pupils equal. Conjunctiva normal. HEENT: External appearance of nose and ears normal, oral cavity grossly normal. NECK: JVD not raised; masses not palpable. HEART: First and second heart sounds are normal; no edema. LUNGS: Respiratory rate normal; clear to auscultation. ABDOMEN: Soft, nontender, liver spleen not palpable, no masses palpable. PSYCH: Alert and oriented x3; mood and affect normal. MUSCULOSKELETAL:No Clubbing/cyanosis;muscles-grossly intact NEUROLOGICAL: Cranial nerves grossly intact; no facial asymmetry, power and sensation grossly intact. LYMPHATICS: No lymph nodes palpable in the axilla and neck INVESTIGATIONS, reviewed in the clinical context: 2-D echocardiogram: Increased septal wall thickness. Moderate increased posterior wall thickness. EF 55-60%. [id number] MR. Dobutamine stress echocardiogram: Negative White count 8.4 hemoglobin 13.3 platelets 276 potassium 4 BUN 11 creatinine 0.57 LDL 80.7 EKG tracing personally reviewed by me-sinus rhythm. T-wave in lead V1 and V2 Chest x-ray film personally reviewed by me-some hyperinflation Assessment and plan: -Anterior chest wall pain, possibly musculoskeletal Dobutamine stress echocardiogram negative -Chronic nicotine dependence, cigarettes smoker Nicotine patch -Essential hypertension Cozaar 25 daily at bedtime -GERD Pepcid 20 mg daily at bedtime -Hyperlipidemia Lipitor 20 mg daily at bedtime Disposition: Home Plan - Discharge Summary New Discharge Prescriptions: New Nicotine 21Mg/24Hr Patch [Habitrol] 1 patch TRANSDERM DAILY #14 patch Continue Losartan Potassium [Cozaar] 25 mg PO HS Famotidine [Pepcid] 20 mg PO HS Aspirin EC [Ecotrin Low Dose] 81 mg PO HS Rosuvastatin [Crestor] 10 mg PO HS Nitroglycerin Sl Tabs [Nitrostat] 0.4 mg SL Q5M PRN PRN Reason: Chest Pain Discharge Medication List Losartan Potassium [Cozaar] 25 mg PO HS 05/28/19 [History] Aspirin EC [Ecotrin Low Dose] 81 mg PO HS 04/11/22 [History] Nitroglycerin Sl Tabs [Nitrostat] 0.4 mg SL Q5M PRN 04/11/22 [History] Rosuvastatin [Crestor] 10 mg PO HS 04/11/22 [History] Famotidine [Pepcid] 20 mg PO HS 01/02/23 [History] Nicotine 21Mg/24Hr Patch [Habitrol] 1 patch TRANSDERM DAILY #14 patch 01/03/23 [Rx] Follow up Appointment(s)/Referral(s): Kory Recio DO [Primary Care Provider] - 1-2 days Vin Bolivar MD [STAFF PHYSICIAN] - 1 Week
== END 2023-01-03 18:01 ==
LOC: EC 02:35 → 6NMEDSUR 04:35
PROVIDERS: ADMIT Hospitalist; ATTEND Hospitalist
DX: R07.89 Other chest pain (principal); I25.10 Atherosclerotic heart disease of native coronary artery without angina pectoris; I10 Essential (primary) hypertension; R06.02 Shortness of breath; R11.0 Nausea; K21.9 Gastro-esophageal reflux disease without esophagitis; I25.2 Old myocardial infarction; E78.5 Hyperlipidemia, unspecified; F17.210 Nicotine dependence, cigarettes, uncomplicated; Z79.82 Long term (current) use of aspirin; Z79.899 Other long term (current) drug therapy; Z91.018 Allergy to other foods; Z95.5 Presence of coronary angioplasty implant and graft; Z87.01 Personal history of pneumonia (recurrent); Z90.710 Acquired absence of both cervix and uterus; Z87.19 Personal history of other diseases of the digestive system; Z98.890 Other specified postprocedural states; Z82.3 Family history of stroke; Z82.49 Family history of ischemic heart disease and other diseases of the circulatory system; Z80.8 Family history of malignant neoplasm of other organs or systems; Z80.3 Family history of malignant neoplasm of breast; Z80.1 Family history of malignant neoplasm of trachea, bronchus and lung
CPT/HCPCS: 96376; 96374; 96375; 99285; 36415; 94760; 93005; 93306; 93351; 80061; 80053; 83690; 83735; 84484 ×2; 85025; 85610; 85730; 83036; 71046; G0378 ×2; S4990; J1250; J2270 ×2; C9113

== ENCOUNTER → 2023-09-26 | Outpatient (CLI) | payer OTHER ==
--- NOTE | 2023-09-26 10:46 | P.GSHP ---
History of Present Illness H&P Date: 09/26/23 Chief Complaint: abnormal left breast ultrasound Von is a 58 year old white female seen in consultation for Aviva Brady regarding an abnormal left breast ultrasound. She had a bilateral mammogram on 07-23-23 which led to a left breast ultrasound on 08-01-23. This showed a 2.41 by 1.9 cm nodule for which biopsy was recommended. The patient has a lesion at the 11 o'clock position of the breast which is palpable and she states she has been able to feel this for many years. It has recently decreased in size and she feels like it drained internally. She has never had any surgery on her breast. She is not complaining of any nipple discharge or skin changes. She has not had any recent trauma or infection in the breast. Caffeine: 1 pot of coffee/day nicotine: 6 cigarettes/day; used to smoke 3 PPD cut back after a heart attack 3 years ago chocolate: weekly BCP: used them for about 6 months in remote past hormones: none Family History: mother: breast cancer in her 70's maternal aunt: colon cancer paternal aunt: colon kaci Hormonal history: Menarche: 12 M2 breast fed: no, age at first : 23 menopause: hysterectomy at 34 left ovaries, not for cancer Surgical History: hysterectomy cardiac stint Medical History: PA Social history: Nicotine: 6 cigarettes per day, used to smoke 3 packs per day, decreased approximately 3 years ago Alcohol: Negative Drugs:none - Constitutional Constitutional: Denies chills, Denies fever - EENT Eyes: denies blurred vision, denies pain Ears: deny: decreased hearing, tinnitus Ears, nose, mouth and throat: Denies headache, Denies sore throat - Breasts Breasts: bilateral: as per HPI - Cardiovascular Comment: PA in the past Cardiovascular: Denies chest pain, Denies shortness of breath - Respiratory Comment: Nicotine dependence Respiratory: Denies cough, Denies 7 - Gastrointestinal Comment: PUD Gastrointestinal: Denies abdominal pain, Denies diarrhea, Denies nausea, Denies vomiting - Genitourinary (Female) Genitourinary: Denies dysuria, Denies hematuria - Menstruation Menstruation: Reports post hysterectomy - Musculoskeletal Musculoskeletal: Reports myalgias - Integumentary Integumentary: Denies pruritus, Denies rash - Neurological Neurological: Denies numbness, Denies weakness - Psychiatric Psychiatric: Denies depression - Endocrine Endocrine: Denies fatigue, Denies weight change - Hematologic/Lymphatic Comment: low dose aspirin - Allergic/Immunologic Allergic/Immunologic: Reports as per HPI Past Medical History Past Medical History: Coronary Artery Disease (CAD), GERD/Reflux, Myocardial Infarction (PA), Pneumonia Additional Past Medical History / Comment(s): Bowel obstructions treated conservatively, pt states she has never had htn or elevated cholesterol-she was started on meds for these after her PA, bradycardia, bronchitis. Last Myocardial Infarction Date:: 01/05/19 History of Any Multi-Drug Resistant Organisms: None Reported Past Surgical History: Heart Catheterization With Stent, Hysterectomy Additional Past Surgical History / Comment(s): PCI with stent placement, colonoscopy. Past Anesthesia/Blood Transfusion Reactions: Motion Sickness, Postoperative Florin sea & Vomiting (PONV) Date of Last Stent Placement:: 01/05/19 Past Psychological History: No Psychological Hx Reported Smoking Status: Current every day smoker Past Alcohol Use History: None Reported Past Drug Use History: None Reported - Past Family History Father Family Medical History: Cancer Additional Family Medical History / Comment(s): Father had paratid cancer that metastasized to his lungs. Mother Family Medical History: Cancer, CVA/TIA, Hypertension Additional Family Medical History / Comment(s): Mother had a CVA. She also had breast cancer. Medications and Allergies Home Medications Medication Instructions Recorded Confirmed Type Losartan Potassium [Cozaar] 25 mg PO HS 05/28/19 01/02/23 History Aspirin EC [Ecotrin Low Dose] 81 mg PO HS 04/11/22 01/02/23 History Nitroglycerin Sl Tabs [Nitrostat] 0.4 mg SL Q5M PRN 04/11/22 01/02/23 History Rosuvastatin [Crestor] 10 mg PO HS 04/11/22 01/02/23 History Famotidine [Pepcid] 20 mg PO HS 01/02/23 01/02/23 History Nicotine 21Mg/24Hr Patch [Habitrol] 1 patch TRANSDERM DAILY #14 patch 01/03/23 Rx Allergies Allergy/AdvReac Type Severity Reaction Status Date / Time Mushroom Allergy Anaphylaxis Verified 01/02/23 08:06 Surgical - Exam - General no distress - Eyes normal ocular movement - Neck trachea midline - Respiratory normal respiratory effort, clear to auscultation - Cardiovascular Heart Sounds: normal: S1, S2 - Abdomen Abdomen: soft, non tender, no guarding, no rigid, no rebound - Integumentary normal turgor - Neurologic no disoriented, no combative - Musculoskeletal normal gait - Psychiatric oriented to time, oriented to person, oriented to place, speech is normal, memory intact Breast Exam: BRA: 40DD Inspection: Bilateral grade 3 ptosis Palpation: Right breast: Multi-positional exam no dominant masses or nodules of concern Right axilla: No adenopathy of concern Left breast: Multi-positional exam at the 12 o'clock position higher towards the chest wall there is approximately a 2.4 cm nodule which is consistent with a sebaceous cyst no other dominant masses or nodules of concern in the breast Left axilla: No adenopathy of concern Results Mammogram and ultrasound results reviewed Assessment and Plan Assessment: Impression: Probable left chest wall/breast sebaceous cyst increasing in size and symptomatic Prior myocardial infarction Plan: Medical clearance Resection of lesion left breast/chest wall in the operating room, at this time it did not recommend a core biopsy as I think this is most likely a sebaceous cyst. The patient understands that if this is something different after resection that may require further surgical intervention but at this time she would like to have it removed Risks and benefits of procedure discussed with the patient. Risks include but are not limited to bleeding, infection, reaction to the anesthetic. If this were to be something other than a sebaceous cyst it's possible that further surgical intervention would be necessary. She understands and wishes to proceed. CC: Aviva Brady
== END ==
LOC: WWCWWP 09:49
PROVIDERS: ATTEND Surgery
DX: I25.2 Old myocardial infarction (principal); I25.10 Atherosclerotic heart disease of native coronary artery without angina pectoris; K21.9 Gastro-esophageal reflux disease without esophagitis; F17.200 Nicotine dependence, unspecified, uncomplicated; K56.609 Unspecified intestinal obstruction, unspecified as to partial versus complete obstruction; Z95.5 Presence of coronary angioplasty implant and graft; Z90.710 Acquired absence of both cervix and uterus; Z80.3 Family history of malignant neoplasm of breast; Z91.018 Allergy to other foods; Z79.82 Long term (current) use of aspirin

== ENCOUNTER 2023-09-27 10:43 | Emergency (ER) | payer OTHER ==
[2023-09-27] MEDS ORDERED: KETOROLAC 15 MG/ML 1 ML VIAL IVP STA (11:09)
[2023-09-27 11:29] LABS: Basophils # (A) 0.1 k/uL (0-0.2); Basophils % (A) 1 %; Eosinophils # (A) 0.1 k/uL (0-0.7); Eosinophils % (A) 2 %; HCT 39.8 % (34.0-46.0); Lymphocytes # (A) 0.2 k/uL (1.0-4.8); Lymphocytes % (A) 4 %; MCHC 32.7 g/dL (31.0-37.0); MCV 88.5 fL (80.0-100.0); Mean Platelet Volume 7.2; Monocytes # (A) 0.3 k/uL (0-1.0); Monocytes % (A) 5 %; Neutrophils # (A) 5.1 k/uL (1.3-7.7); Neutrophils % (A) 87 %; Platelet Count 246 k/uL (150-450); RDW 13.7 % (11.5-15.5); WBC 5.9 k/uL (3.8-10.6)
[2023-09-27 11:33] VITALS: RESP 18
[2023-09-27 11:40] LABS: ALT 16 U/L (4-34); African American GFR (CKD) >90 (>60 ml/min/1.73 sqM); Albumin 3.6 g/dL (3.5-5.0); Anion Gap 13 mmol/L; Blood Urea Nitrogen 14 mg/dL (7-17); Calcium 8.8 mg/dL (8.4-10.2); Carbon Dioxide 18 mmol/L (22-30); Chloride 109 mmol/L (98-107); Glucose 97 mg/dL (74-99); INR 0.9 (<1.2); Magnesium 2.1 mg/dL (1.6-2.3); Non-African American GFR(CKD) >90 (>60 ml/min/1.73 sqM); Prothrombin Time 10.5 sec (10.0-12.5); Sodium 140 mmol/L (137-145); Total Bilirubin 0.5 mg/dL (0.2-1.3); Total Protein 6.5 g/dL (6.3-8.2)
[2023-09-27 11:59] LABS: AST 29 U/L (14-36); Potassium 3.9 mmol/L (3.5-5.1)
[2023-09-27 12:00] LABS: Alkaline Phosphatase 72 U/L (38-126)
--- NOTE | 2023-09-27 12:16 | XR ---
EXAMINATION TYPE: XR chest 2V DATE OF EXAM: 09/27/2023 COMPARISON: Prior chest x-ray January 02, 2023 HISTORY: Chest pain. TECHNIQUE: Frontal and lateral views of the chest are obtained. FINDINGS: There is no suspicious new focal air space opacity, pleural effusion, or pneumothorax seen . The cardiac silhouette size is stable and within normal limits. Overlying EKG leads are redemonstr ated. The osseous structures are intact. IMPRESSION: No acute process. No significant change from prior.
--- NOTE | 2023-09-27 12:49 | ED ---
Chest Pain HPI - General Chief Complaint: Chest Pain Stated Complaint: Chest Pain Time Seen by Provider: 09/27/23 10:50 Source: patient, EMS, RN notes reviewed Mode of arrival: EMS Limitations: no limitations - History of Present Illness Initial Comments: 58-year-old female presents emergency Department chief complaint of chest pain. She states she has not felt well recently. She states she took a nitro last night. She states symptoms have improved and denies this morning which she states did not feel like her typical chest pain. Patient denies any shortness breath she does state that she has a cough mildly productive reports fever bodyaches. - Related Data Home Medications Medication Instructions Recorded Confirmed RX: Losartan Potassium [Cozaar] 25 mg PO HS 05/28/19 01/02/23 RX: Aspirin EC [Ecotrin Low Dose] 81 mg PO HS 04/11/22 01/02/23 RX: Nitroglycerin Sl Tabs 0.4 mg SL Q5M PRN 04/11/22 01/02/23 [Nitrostat] RX: Rosuvastatin [Crestor] 10 mg PO HS 04/11/22 01/02/23 RX: Famotidine [Pepcid] 20 mg PO HS 01/02/23 01/02/23 Previous Rx's Medication Instructions Recorded RX: Nicotine 21Mg/24Hr Patch 1 patch TRANSDERM DAILY #14 patch 01/03/23 [Habitrol] Allergies Allergy/AdvReac Type Severity Reaction Status Date / Time Mushroom Allergy Anaphylaxis Verified 09/27/23 11:18 Review of Systems ROS Statement: Those systems with pertinent positive or pertinent negative responses have been documented in the HPI. ROS Other: All systems not noted in ROS Statement are negative. EKG Findings - EKG Comments: EKG Findings:: EKG performed at 20:47/rhythm rate of 75 NE 151 QRS 88 QT/ QTC 377/405 - EKG Results: EKG: interpreted by NEHA Past Medical History Past Medical History: Coronary Artery Disease (CAD), GERD/Reflux, Myocardial Infarction (NE), Pneumonia Additional Past Medical History / Comment(s): Bowel obstructions treated conservatively, pt states she has never had htn or elevated cholesterol-she was started on meds for these after her NE, bradycardia, bronchitis. Last Myocardial Infarction Date:: 01/05/19 History of Any Multi-Drug Resistant Organisms: None Reported Past Surgical History: Heart Catheterization With Stent, Hysterectomy Additional Past Surgical History / Comment(s): PCI with stent placement, colonoscopy. Past Anesthesia/Blood Transfusion Reactions: Motion Sickness, Postoperative Nausea & Vomiting (PONV) Date of Last Stent Placement:: 01/05/19 Past Psychological History: No Psychological Hx Reported Smoking Status: Current every day smoker Past Alcohol Use History: None Reported Past Drug Use History: None Reported - Past Family History Father Family Medical History: Cancer Additional Family Medical History / Comment(s): Father had paratid cancer that metastasized to his lungs. Mother Family Medical History: Cancer, CVA/TIA, Hypertension Additional Family Medical History / Comment(s): Mother had a CVA. She also had breast cancer. General Exam Limitations: no limitations General appearance: alert, in no apparent distress Head exam: Present: atraumatic, normocephalic, normal inspection Eye exam: Present: normal appearance, PERRL, EOMI. Absent: scleral icterus, conjunctival injection, periorbital swelling ENT exam: Present: normal exam, normal oropharynx, mucous membranes moist Neck exam: Present: normal inspection. Absent: tenderness, meningismus, lymphadenopathy Respiratory exam: Present: normal lung sounds bilaterally. Absent: respiratory distress, wheezes, rales, rhonchi, stridor Cardiovascular Exam: Present: regular rate, normal rhythm, normal heart sounds. Absent: systolic murmur, diastolic murmur, rubs, gallop, clicks GI/Abdominal exam: Present: soft, normal bowel sounds. Absent: distended, tenderness, guarding, rebound, rigid Course Vital Signs 09/27/23 09/27/23 11:12 12:54 Temperature 98.2 F 98.9 F Pulse Rate 80 81 Respiratory 18 18 Rate Blood Pressure 118/69 122/79 O2 Sat by Pulse 94 L 98 Oximetry Chest Pain MDM - MDM Was pt. sent in by a medical professional or institution (, PA, CHOPPER FEEDER, urgent care, hospital, or skilled nursing...) When possible be specific @ -No Did you speak to anyone other than the patient for history (EMS, parent, family, police, friend...)? What history was obtained from this source @ -No Did you review nursing and triage notes (agree or disagree)? Why? @ -I reviewed and agree with nursing and triage notes Were old charts reviewed (outside hosp., previous admission, EMS record, old EKG, old radiological studies, urgent care reports/EKG's, skilled nursing records)? Report findings @ -No old charts were reviewed Differential Diagnosis (chest pain, altered mental status, abdominal pain women, abdominal pain men, vaginal bleeding, weakness, fever, dyspnea, syncope, he adache, dizziness, GI bleed, back pain, seizure, CVA, palpatations, mental health, musculoskeletal)? @ -Differential Chest Pain: Stable Angina, Unstable Angina, STEMI, NSTEMI Aortic Dissection, Pneumothorax, Musculoskeletal, Esophageal Spasm GERD, Cholecystitis, Pancreatitis, Zoster, this is not meant to be an all-inclusive list. e EKG interpreted by me (3pts min.). @ -As above X-rays interpreted by me (1pt min.). @ -Chest x-ray shows no acute cardio pulmonary process CT interpreted by me (1pt min.). @ -None done U/S interpreted by me (1pt. min.). @ -None done What testing was considered but not performed or refused? (CT, X-rays, U/S, labs)? Why? @ -None What meds were considered but not given or refused? Why? @ -None Did you discuss the management of the patient with other professionals (professionals i.e. , PA, CHOPPER FEEDER, lab, RT, psych nurse, social science analyst, orthophoto tech/draftsman, teacher, surveillance sensor officer, pillowcase turner)? Give summary @ -No Was smoking cessation discussed for >3mins.? @ -No Was critical care preformed (if so, how long)? @ -No Were there social determinants of health that impacted care today? How? (Homelessness, low income, unemployed, alcoholism, drug addiction, tra nsportation, low edu. Level, literacy, decrease access to med. care, alf, rehab)? @ -No Was there de-escalation of care discussed even if they declined (Discuss DNR or withdrawal of care, Hospice)? DNR status @ -No What co-morbidities impacted this encounter? (DM, HTN, Smoking, COPD, CAD, Cancer, CVA, ARF, Chemo, Hep., AIDS, mental health diagnosis, sleep apnea, morbid obesity)? @ -CAD Was patient admitted / discharged? Hospital course, mention meds given and route, prescriptions, significant lab abnormalities, going to OR and other pertinent info. @ -[Discharged patient did present for atypical chest pain she had some relief from nitro. Patient is covid 19 positive. I did recommend cardiac rule out given her history and the from nitro. Patient declined stating that she is just sick and she understands risk of leaving. Undiagnosed new problem with uncertain prognosis? @ -No Drug Therapy requiring intensive monitoring for toxicity (Heparin, Nitro, Insulin, Cardizem)? @ -No Were any procedures done? @ -No Diagnosis/symptom? @ -Atypical chest pain, COVID-19 Acute, or Chronic, or Acute on Chronic? @ -Acute Uncomplicated (without systemic symptoms) or Complicated (systemic symptoms)? @ -[Complicated Side effects of treatment? @ -No Exacerbation, Progression, or Severe Exacerbation? @ -No Poses a threat to life or bodily function? How? (Chest pain, [place], NE, pneumonia, PE, COPD, DKA, ARF, appy, cholecystitis, CVA, Diverticulitis, Homicidal, Suicidal, threat to staff... and all critical care pts) @ -No Disposition Clinical Impression: Atypical chest pain, COVID-19 Disposition: HOME SELF-CARE Condition: Stable Instructions (If sedation given, give patient instructions): COVID-19 (Coronavirus Disease 2019) (ED) Additional Instructions: Please return to the Emergency Department if symptoms worsen or any other concerns. Is patient prescribed a controlled substance at d/c from ED?: No Referrals: Kory Recio DO [Primary Care Provider] - 1-2 days Time of Disposition: 12:49
[2023-09-27 13:10] VITALS: BP 122/79; PULSE 81; TEMP 98.9
== END 2023-09-27 13:02 | disposition home or self-care (01) ==
LOC: EC 10:43
DX: U07.1 COVID-19 (principal); R07.89 Other chest pain; I25.10 Atherosclerotic heart disease of native coronary artery without angina pectoris; K21.9 Gastro-esophageal reflux disease without esophagitis; I25.2 Old myocardial infarction; F17.200 Nicotine dependence, unspecified, uncomplicated; Z79.82 Long term (current) use of aspirin; Z79.899 Other long term (current) drug therapy
CPT/HCPCS: 36415; 71046; 80053; 83735; 84484; 85025; 85610; 85730; 87636; 99285

== ENCOUNTER → 2023-11-08 | Outpatient (CLI) | payer OTHER ==
--- NOTE | 2023-11-08 09:49 | P.PN ---
Subjective Progress Note Date: 11/08/23 abnormal left breast ultrasound Von is a 58 year old white female seen in consultation for Aviva Brady regarding an abnormal left breast ultrasound. She had a bilateral mammogram on 07-23-23 which led to a left breast ultrasound on 08-01-23. This showed a 2.41 by 1.9 cm nodule for which biopsy was recommended. The patient has a lesion at the 11 o'clock position of the breast which is palpable and she states she has been able to feel this for many years. It has recently decreased in size and she feels like it drained internally. She has never had any surgery on her breast. She is not complaining of any nipple discharge or skin changes. She has not had any recent trauma or infection in the breast. Caffeine: 1 pot of coffee/day nicotine: 6 cigarettes/day; used to smoke 3 PPD cut back after a heart attack 3 years ago chocolate: weekly BCP: used them for about 6 months in remote past hormones: none Family History: mother: breast cancer in her 70's maternal aunt: colon cancer paternal aunt: colon caner Hormonal history: Menarche: 12 M2 breast fed: no, age at first : 23 menopause: hysterectomy at 34 left ovaries, not for cancer Surgical History: hysterectomy cardiac stint Medical History: ME Social history: Nicotine: 6 cigarettes per day, used to smoke 3 packs per day, decreased approximately 3 years ago Alcohol: Negative Drugs:none - Constitutional Constitutional: Denies chills, Denies fever - EENT Eyes: denies blurred vision, denies pain Ears: deny: decreased hearing, tinnitus Ears, nose, mouth and throat: Denies headache, Denies sore throat - Breasts Breasts: bilateral: as per HPI - Cardiovascular Comment: ME in the past Cardiovascular: Denies chest pain, Denies shortness of breath - Respiratory Comment: Nicotine dependence Respiratory: Denies cough - Gastrointestinal Comment: PUD Gastrointestinal: Denies abdominal pain, Denies diarrhea, Denies nausea, Denies vomiting - Genitourinary (Female) Genitourinary: Denies dysuria, Denies hematuria - Menstruation Menstruation: Reports post hysterectomy - Musculoskeletal Musculoskeletal: Reports myalgias - Integumentary Integumentary: Denies pruritus, Denies rash - Neurological Neurological: Denies numbness, Denies weakness - Psychiatric Psychiatric: Denies depression - Endocrine Endocrine: Denies fatigue, Denies weight change - Hematologic/Lymphatic Comment: low dose aspirin - Allergic/Immunologic Allergic/Immunologic: Reports as per HPI Past Medical History Past Medical History: Coronary Artery Disease (CAD), GERD/Reflux, Myocardial Infarction (ME), Pneumonia Additional Past Medical History / Comment(s): Bowel obstructions treated conservatively, pt states she has never had htn or elevated cholesterol-she was started on meds for these after her ME, bradycardia, bronchitis. Last Myocardial Infarction Date:: 01/05/19 History of Any Multi-Drug Resistant Organisms: None Reported Past Surgical History: Heart Catheterization With Stent, Hysterectomy Additional Past Surgical History / Comment(s): PCI with stent placement, colonoscopy. Past Anesthesia/Blood Transfusion Reactions: Motion Sickness, Postoperative Nausea & Vomiting (PONV) Date of Last Stent Placement:: 01/05/19 Past Psychological History: No Psychological Hx Reported Smoking Status: Current every day smoker Past Alcohol Use History: None Reported Past Drug Use History: None Reported - Past Family History Father Family Medical History: Cancer Additional Family Medical History / Comment(s): Father had paratid cancer that metastasized to his lungs. Mother Family Medical History: Cancer, CVA/TIA, Hypertension Additional Family Medical History / Comment(s): Mother had a CVA. She also had breast cancer. Medications and Allergies Home Medications Medication Instructions Recorded Confirmed Type Losartan Potassium [Cozaar] 25 mg PO HS 05/28/19 01/02/23 History Aspirin EC [Ecotrin Low Dose] 81 mg PO HS 04/11/22 01/02/23 History Nitroglycerin Sl Tabs [Nitrostat] 0.4 mg SL Q5M PRN 04/11/22 01/02/23 History Rosuvastatin [Crestor] 10 mg PO HS 04/11/22 01/02/23 History Famotidine [Pepcid] 20 mg PO HS 01/02/23 01/02/23 History Nicotine 21Mg/24Hr Patch [Habitrol] 1 patch TRANSDERM DAILY #14 patch 01/03/23 Rx Allergies Allergy/AdvReac Type Severity Reaction Status Date / Time Mushroom Allergy Anaphylaxis Verified 01/02/23 08:06 Objective - Vital Signs Vital signs: Vital Signs Temp 97.9 F 11/08/23 09:28 Pulse 63 11/08/23 09:28 Resp 17 11/08/23 09:28 BP 119/83 11/08/23 09:28 Pulse Ox 99 11/08/23 09:28 FiO2 Intake & Output 11/07/23 11/08/23 11/08/23 18:59 06:59 18:59 Weight 75.296 kg - Constitutional General appearance: Present: cooperative - EENT Eyes: Present: EOMI ENT: Present: hearing grossly normal - Neck Neck: Present: normal ROM - Respiratory Respiratory: bilateral: CTA - Cardiovascular Heart sounds: normal: S1, S2 - Integumentary Integumentary: Present: normal turgor - Musculoskeletal Musculoskeletal: Present: gait normal - Psychiatric Psychiatric: Present: A&O x's 3, appropriate affect, intact judgment & insight - Additional findings Additional findings: Breast Exam: BRA: 40DD Inspection: Bilateral grade 3 ptosis Palpation: Right breast: Multi-positional exam no dominant masses or nodules of concern Right axilla: No adenopathy of concern Left breast: Multi-positional exam at the 12 o'clock position higher towards the chest wall there is approximately a 2.4 cm nodule which is consistent with a sebaceous cyst no other dominant masses or nodules of concern in the breast Left axilla: No adenopathy of concern Assessment and Plan Assessment: Impression: Probable left chest wall/breast sebaceous cyst increasing in size and symptomatic Prior myocardial infarction bilateral mammogram 07-23-23 led to a left breast ultrasound, 11 oclock nodule noted at palpable site Plan: Medical clearance Resection of lesion left breast/chest wall in the operating room, at this time it did not recommend a core biopsy as I think this is most likely a sebaceous cyst. The patient understands that if this is something different after resection that may require further surgical intervention but at this time she would like to have it removed Risks and benefits of procedure discussed with the patient. Risks include but are not limited to bleeding, infection, reaction to the anesthetic. If this were to be something other than a sebaceous cyst it's possible that further surgical intervention would be necessary. She understands and wishes to proceed. CC: Aviva Brady
[2023-11-08 09:53] VITALS: BP 119/83; PULSE 63; RESP 17; TEMP 97.9
== END ==
LOC: WWCWWP 09:11
PROVIDERS: ATTEND Surgery
DX: N63.21 Unspecified lump in the left breast, upper outer quadrant (principal); I25.10 Atherosclerotic heart disease of native coronary artery without angina pectoris; I25.2 Old myocardial infarction; K21.9 Gastro-esophageal reflux disease without esophagitis; F17.210 Nicotine dependence, cigarettes, uncomplicated; Z80.3 Family history of malignant neoplasm of breast; Z95.5 Presence of coronary angioplasty implant and graft; Z87.01 Personal history of pneumonia (recurrent); Z91.018 Allergy to other foods; Z79.82 Long term (current) use of aspirin

== ENCOUNTER 2023-11-26 08:22 | Day surgery (SDC) | payer OTHER ==
[2023-11-21 10:31] VITALS: BMI 25.9
[~2023-11-26 08:22] MED LIST: HYDROmorphone 0.5 MG/0.5 ML SYRINGE IVP PRN; LIDOCAINE 1% (10MG/ML) FOR IV START INTRADERMA PRN; MIDAZOLAM 2 MG/2 ML VIAL IV PRN; Pre Op ABX Message 1 EACH MISC MISCELLANE ONE
[2023-11-26] MEDS: LACTATED RINGERS 1,000 ML IV SCH (09:02)
[2023-11-26 09:12] VITALS: RESP 16
[2023-11-26] MEDS: DEXAMETHASONE SOD PHOSPHATE 4 MG/ML 1 ML VIAL IV ONE (09:16)
[2023-11-26] MEDS: ONDANSETRON 4 MG/2 ML VIAL IVP ONE (09:17)
[2023-11-26] MEDS: SCOPOLAMINE 1 MG/72 HR PATCH TRANSDERM ONE (09:18)
[2023-11-26] MEDS: FAMOTIDINE 20 MG/2 ML VIAL IVP ONE (09:18)
[2023-11-26] MEDS: HEPARIN SODIUM,PORCINE 5,000 UNIT/ML 1 ML VIAL SQ PRN (09:18)
[2023-11-26] MEDS: diphenhydrAMINE 50 MG/ML 1 ML VIAL IVP ONE (09:18)
[2023-11-26] MEDS ORDERED: diphenhydrAMINE 50 MG/ML 1 ML VIAL ONE (09:23)
[2023-11-26] MEDS: LIDOCAINE (PF) 10 MG/ML 2 ML VIAL SQ ONE ×2 (09:29→10:05)
[2023-11-26] MEDS ORDERED: ceFAZolin 1 GM/50 ML BAG (PMX) ONE (09:37)
[2023-11-26] MEDS ORDERED: PROPOFOL 10 MG/ML 20 ML VIAL IV ONE (09:37)
[2023-11-26] MEDS ORDERED: MIDAZOLAM 2 MG/2 ML VIAL ONE (09:37)
[2023-11-26] MEDS ORDERED: fentaNYL (PF) 50 MCG/ML 2 ML AMP ONE (09:37)
[2023-11-26] MEDS ORDERED: LIDOCAINE 1% INJ 10MG/ML (20 ML MDV) ONE (09:37)
[2023-11-26] MEDS: SODIUM CHLORIDE 0.9% 50 ML with ceFAZolin 2,000 MG IV ONE (09:51)
--- NOTE | 2023-11-26 10:07 | P.OP ---
Date of Procedure: 11/26/23 Preoperative Diagnosis: Sebaceous cyst left chest wall Postoperative Diagnosis: Same Procedure(s) Performed: Excision sebaceous cyst left chest wall Anesthesia: GETA, local (10 cc 1% lidocaine at end of case) Surgeon: Kaley Cardona Estimated Blood Loss (ml): 2 IV fluids (ml): 300 Pathology: other (Sebaceous cyst left chest) Condition: stable Disposition: same day Indications for Procedure: Palpable mass left chest wall Operative Findings: Sebaceous cyst left chest Description of Procedure: The patient was brought to the operating room. The left breast and chest was prepped and draped in a sterile fashion following induction of anesthesia. An incision was made over the palpable abnormality. Wide excision was performed. The lesion was approximately 3.5 x 2 cm in size. It was consistent with a sebaceous cyst. The wound was irrigated. The deep tissues were closed using 3- 0 Vicryl suture. The skin was closed using 4-0 Monocryl. The patient tolerated the procedure in stable condition. 10 cc of 1% lidocaine were injected into the area of the incision.
[2023-11-26 10:56] VITALS: TEMP 96.8
[2023-11-26 11:33] VITALS: BP 165/82; PULSE 61
== END 2023-11-26 11:37 | disposition home or self-care (01) ==
LOC: OR 08:22
PROVIDERS: ATTEND Surgery
DX: N60.82 Other benign mammary dysplasias of left breast (principal); L72.0 Epidermal cyst
CPT/HCPCS: 88304; 11406; J2250; J1200; J2001 ×2; J1644; J1100; J2405; J0690 ×2; J3010; J3490; J2704

== ENCOUNTER → 2023-12-05 | Outpatient (CLI) | payer OTHER ==
[2023-12-05 15:16] VITALS: BP 159/79; PULSE 57; RESP 16; TEMP 98.4
--- NOTE | 2023-12-05 15:20 | P.PN ---
Progress Note - Text Progress Note Date: 12/05/23 Von is status post excision of an epidermal inclusion cyst on 11-26-23. Patient without difficulty. Examination: Incision clean and dry Impression: Patient doing well Plan: Follow-up examination with bilateral mammogram at that time Patient to follow-up sooner any questions or concerns CC: Hazel Monge
== END | disposition home or self-care (01) ==
LOC: WWCWWP 14:36
PROVIDERS: ATTEND Surgery
DX: Z98.890 Other specified postprocedural states (principal)

== ENCOUNTER → 2024-02-27 | Outpatient (CLI) | payer OTHER ==
--- NOTE | 2024-02-29 08:35 | PE ---
EXAMINATION TYPE: PET CT fusion skull to thigh DATE OF EXAM: 02/27/2024 CLINICAL INDICATION:Female, 58 years old with history of C7A.8 NEUROENDOCRINE TUMOR; TECHNIQUE: Following the intravenous administration of 5.11 mCi of Ga-68 DOTATATE, whole body image s are performed from the skull base to the midthigh. Images are reviewed on the computer in the chad nal, axial, and sagittal planes. Reconstructed rotating images are created on independent workstatio n and reviewed on the computer. A non-contrast CT is performed in conjunction with the PET scan. CT DLP: 339 mGycm, Automated exposure control for dose reduction was used. COMPARISON: CT 01/28/2024., PET/CT None, FINDINGS: Mediastinal SUV mean is 0.6. Hepatic parenchyma SUV mean is 7.4. SKULL BASE AND NECK: No suspicious radiotracer activity. CHEST, MEDIASTINUM, AND HILAR REGION: No suspicious radiotracer activity. ABDOMEN AND PELVIS: * Mesentery soft tissue nodule measuring 21 x 18 mm Max SUV 12.9. * Scattered areas throughout the liver of increased metabolic activity with at least 10 areas. Examp les include right hepatic lobe max SUV 24.37 measuring 1.6 cm on PET imaging and max SUV 24.3 measuri ng 1.8 cm in left hepatic lobe. These are not well seen on CT imaging * Single focus in the pancreatic tail of abnormal uptake max SUV 20.4. Measuring 1.0 cm. MUSCULOSKELETAL STRUCTURES: * Abnormal uptake in the osseous structures examples include * L5 max SUV 18.2, * T9 axis SUV 6.0, * T8 max SUV 15.1, * T6 posterior elements max SUV 17.3 * T2 max SUV 4.8 * Right humerus max is a 5.9 * Left posterior rib 4 max SUV 7.0. * Left clavicle max SUV 6.9. * Sacrum max SUV 6.6. OTHER CT: The atherosclerosis of the carotid bifurcations and arterial vasculature the coronary arter ies. Scattered colonic diverticula. The uterus appears surgically absent. IMPRESSION: 1. 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 Correlate for mesenteric carcinoid. 2. Single focus of uptake within the pancreatic tail is also suspicious for neuroendocrine tumor. Co rrelate with serum markers for insulinoma versus gastrinoma versus others.
== END | disposition home or self-care (01) ==
LOC: RADPETMAIN 07:21
PROVIDERS: ATTEND Internal Medicine Hematology & Oncology
DX: C78.7 Secondary malignant neoplasm of liver and intrahepatic bile duct (principal); D3A.8 Other benign neuroendocrine tumors; C7A.8 Other malignant neuroendocrine tumors; R19.00 Intra-abdominal and pelvic swelling, mass and lump, unspecified site; I10 Essential (primary) hypertension; E78.5 Hyperlipidemia, unspecified
CPT/HCPCS: 78815; A9592; 83497

== ENCOUNTER → 2025-03-19 | Outpatient (CLI) | payer OTHER ==
--- NOTE | 2025-03-20 18:17 | PE ---
EXAMINATION TYPE: PET CT fusion skull to thigh DATE OF EXAM: 03/19/2025 CLINICAL INDICATION:Female, 60 years old with history of C7A.8 neuroendocrine tumor; TECHNIQUE: Following the intravenous administration of 5.13 mCi of Ga-68 DOTATATE, whole body image s are performed from the skull vertex to the midthigh. Images are reviewed on the computer in the co matty, axial, and sagittal planes. Reconstructed rotating images are created on independent workstat ion and reviewed on the computer. A non-contrast CT is performed in conjunction with the PET scan. CT DLP: 630 mGycm, Automated exposure control for dose reduction was used. COMPARISON: CT 01/28/2024, 04/11/2022, PET/CT 02/27/2024, MRI: None FINDINGS: Mediastinal SUV mean is 2.3. Hepatic parenchyma SUV mean is 13.4. SKULL BASE AND NECK: No suspicious radiotracer activity. CHEST, MEDIASTINUM, AND HILAR REGION: No suspicious radiotracer activity. ABDOMEN AND PELVIS: Mesentery soft tissue nodule redemonstrated measuring 2.4 x 1.8 cm, previously measured 2.1 x 1.8 cm. Demonstrates a maximum SUV 11.9, previously 12.9. There is surrounding desmoplastic reaction again. Subtle hypodense multiple bilobar hepatic lesions redemonstrated. There are multiple new smaller lesi ons from prior exam. These demonstrate intense radiotracer activity with largest in the right hepatic lobe demonstrating a maximum SUV of 48.8. Previously 44.6. Largest within the inferior left hepatic lobe demonstrates a maximum SUV of 37.3, previously 29.8. Redemonstration of a single focus of intense radiotracer activity within the pancreatic tail demonstr ating a maximum SUV 23.7, previously 20.4. MUSCULOSKELETAL STRUCTURES: Multiple foci of radiotracer uptake identified within the osseous structures as described below. Over all similar number and size of lesions from prior PET/CT. * L5 max SUV 14.7, previously 18.2. * T9 axis SUV 6.6, previously 6.0. * T8 max SUV 14.3, previously 15.1. * Right humerus max SUV 10.5, previously 5.9. * Left posterior rib 4 max SUV 9.8, previously 7.0. * Left distal clavicle max SUV 13.1, previously 6.9. * Sacrum max SUV 13.6, previously 6.6. OTHER CT: The atherosclerosis of the carotid bifurcations and arterial vasculature of the coronary ar teries. Multiple bilateral palatine tonsilloliths. Mildly dilated main pulmonary artery suggesting pu lmonary arterial hypertension. Mild cardiomegaly. Mitral anus calcifications. Scattered colonic diver ticula. The uterus appears surgically absent. Stable left breast 1.6 cm lesion previously favored to represent a fibroadenoma. IMPRESSION: 1. Overall progression of disease with multiple new hepatic metastasis and increasing radiotracer ac tivity of previously seen hepatic metastasis. Similar mesenteric neuroendocrine tumor with surroundin g desmoplastic reaction. Similar multiple metastatic osseous lesions with mixed response as described above. 2. Similar focus of intense radiotracer uptake within the pancreatic tail again suspicious for neuro endocrine tumor. [facility], , 03/20/2025 6:14 PM
== END | disposition home or self-care (01) ==
LOC: RADPETMAIN 12:55
PROVIDERS: ATTEND Internal Medicine Hematology & Oncology
DX: C7A.8 Other malignant neuroendocrine tumors (principal); C78.7 Secondary malignant neoplasm of liver and intrahepatic bile duct
CPT/HCPCS: 78815; A9587